=== PATIENT | male | born 1990 | race Caucasian/White ===

== ENCOUNTER 2016-04-25 13:57 | Emergency (ER) | payer MEDICAID ==
[~2016-04-25 13:57] MED LIST: ALBU17IN INH; ATOM40CA PO; HYDR-3719 PO; OXYC1TAB23 PO; PROZ10CA7 PO; PROZ20CA11 PO; REME15TA PO; STRA80CA PO; TRAZ100T4 PO; VIST50CA PO; no home meds
[2016-04-25] MEDS ORDERED: MORPHINE 4 MG/ML 1ML SYRINGE As Ordered ONE ×4 (15:40→18:48)
[2016-04-25] MEDS ORDERED: ONDANSETRON 4MG/2ML VIAL (J2405) As Ordered ONE (15:40)
[2016-04-25] MEDS ORDERED: GASTROGRAFIN SOLUTION 30ML (Q9963) As Ordered ONE (15:40)
[2016-04-25 16:08] LABS: BASO # 0.1 K/mm3 (0.0-0.2); BASO % 1.5 % (0.0-1.0); EOS # 0.2 K/mm3 (0.0-0.50); EOS % 1.8 % (0.0-3.0); LARGE UNSTAINED CELL # 0.2 K/mm3 (0.0-0.4); LARGE UNSTAINED CELL % 2.3 % (0.0-4.0); LYMPH # 2.9 K/mm3 (1.5-6.5); LYMPH % 32.7 % (24.0-44.0); MEAN CORPUSCULAR HEMOGLOBIN 28.9 pg (27.0-33.0); MEAN CORPUSCULAR HGB CONC 32.9 g/dl (32.0-36.5); MEAN CORPUSCULAR VOLUME 87.9 fl (80.0-96.0); MONO # 0.5 K/mm3 (0.0-0.8); MONO % 6.2 % (0.0-5.0); NEUTROPHILS # 4.6 K/mm3 (1.8-7.7); NEUTROPHILS % 55.6 % (36.0-66.0); PLATELET COUNT, AUTOMATED 204 k/mm3 (150-450); RED CELL DISTRIBUTION WIDTH 13.2 % (11.5-14.5); WHITE BLOOD COUNT 8.3 K/mm3 (4.0-10.0)
[2016-04-25 16:31] LABS: ALBUMIN 4.2 GM/DL (3.2-5.2); ALKALINE PHOSPHATASE 85 U/L (45-117); ALT/SGPT 36 U/L (12-78); ANION GAP 7 MEQ/L (8-16); AST/SGOT 19 U/L (15-37); BILIRUBIN,DIRECT < 0.1 MG/DL (0.0-0.2); BILIRUBIN,TOTAL 0.2 MG/DL (0.2-1.0); BLOOD UREA NITROGEN 14 MG/DL (7-18); CALCIUM LEVEL 9.3 MG/DL (8.5-10.1); CARBON DIOXIDE LEVEL 33 MEQ/L (21-32); CHLORIDE LEVEL 103 MEQ/L (98-107); CREATININE FOR GFR 1.12 MG/DL (0.70-1.30); GLOMERULAR FILTRATION RATE > 60.0 (>60); GLUCOSE, FASTING 101 MG/DL (70-105); POTASSIUM SERUM 4.3 MEQ/L (3.5-5.1); SODIUM LEVEL 143 MEQ/L (136-145); TOTAL PROTEIN 7.7 GM/DL (6.4-8.2)
[2016-04-25] MEDS ORDERED: PROMETHAZINE INJ 25 MG/ML VIAL (J2550) As Ordered ONE (16:44)
[2016-04-25] MEDS ORDERED: ISOVUE-370 76% 100ML VIAL (Q9967) As Ordered ONE (17:12)
--- NOTE | 2016-04-25 18:07 | REP ---
CT ABDOMEN AND PELVIS WITH CONTRAST: HISTORY: Upper abdominal pain. CONTRAST: Isovue 370, 75 mL. COMPARISON: 03/06/2016. The posterior body and tail of the pancreas are enlarged and irregular in contour, however, unchanged compared to the previous study. The liver, gallbladder, spleen, adrenal glands and kidneys are normal in appearance. There is no mass, adenopathy or free fluid. There is thickening of the wall of the descending and sigmoid colon. The lumen is decreased in caliber. These findings are unchanged compared to the previous study. The visualized lungs are clear. IMPRESSION: 1. There is enlargement and irregularity of the posterior body and tail of the pancreas. This is unchanged compared to the previous study. MR may be helpful for further evaluation to exclude a mass. 2. There is thickening of the wall of the descending and sigmoid colon. The lumen is decreased in caliber. These findings are unchanged compared to the previous study and are suspicious for inflammatory bowel disease. CT PELVIS: The prostate gland and urinary bladder are normal in appearance. There is thickening of the wall of the descending and sigmoid colon. The lumen is decrease in caliber. These findings are unchanged compared to the previous study. There is no mass, adenopathy or free fluid. A small left inguinal hernia is present. IMPRESSION: 1. There is thickening of the wall of the descending and sigmoid colon . The lumen is decreased in caliber. These findings are unchanged compared to the previous study and are suspicious for inflammatory bowel disease. 2. Small left inguinal hernia. Signed by Shahram Gomez MD 04/25/2016 06:10 P
[2016-04-25] MEDS ORDERED: NORCO 5/325MG TABLET (BULK) As Ordered ONE (19:38)
--- NOTE | 2016-04-25 20:00 | EDDOCDS ---
Nurse's Notes [facility] Name: Monty Alexander Age: 25 yrs Sex: Male : 1990 Arrival Date: 04/25/2016 Time: 13:57 Bed TR8 Private MD: NO PRIMARY PHYSICIAN, . Diagnosis: Upper abdominal pain, unspecified Presentation: 04/25 14:00 Presenting complaint: Patient states: LUQ pain for 4 days. Risk factors: the patient dwg reports not having a history of previous torsion. Adult Sepsis Screening: The patient does not have new or worsening altered mentation. Patient's respiratory rate is less than 22. Systolic blood pressure is greater than 100. Patient has a qSOFA score of 0- Negative Sepsis Screen. Suicide/Homicide risk assessment- the patient denies having any suicidal and/or homicidal ideations and does not present with any other emotional, behavioral or mental health complaints. Status: Patient is not a field services manager or dependent. Transition of care: patient was not received from another setting of care. 14:00 Acuity: SHANI Level 3 dwg 14:00 Method Of Arrival: Walkin/Carried/Asstd dwg Triage Assessment: 14:01 General: Appears in no apparent distress. Pain: Pain currently is 8 out of 10 on a pain dwg scale. HIV screening NA for this visit Offered previously. Historical: - Allergies: Amoxicillin (Rash); Azithromycin (Hives); Ketorolac (Upset stomach); Pediazole (Hives); Penicillins; - Home Meds: 1. none - PMHx: Anxiety; Depression; Ulcerative Colitis; - PSHx: Appendectomy; - Social history: Smoking status: Patient uses tobacco products, current every day smoker. No barriers to communication noted, The patient speaks fluent Moldovan. - Family history: Not pertinent. - : The pt / caregiver states he / she is not on anticoagulants. Home medication list is obtained from the patient. - Exposure Risk Screening:: None identified. Screenin:23 Screening information is obtained from the patient. Primary language is Moldovan. Fall jam1 risk: No risks identified. Assistance ADL's: requires no assistance with activities of daily living. Abuse/DV Screen: The patient / caregiver reports he/she is: not in a situation that causes fear, pain or injury. Nutritional screening: No deficits noted. Exposure Risk Screening: None identified. Advance Directives: Currently, there is no health care proxy. There is no active DNR order. There is no living will. There is no Power of Organic Gardening Teacher. Advance directive information has not previously been placed in an [facility] medical record. Further advance directive information is declined. home support is adequate. Assessment: 15:30 General: Appears in no apparent distress, comfortable, Behavior is appropriate for age, kc3 cooperative. Pain: Location: abdomen Pain currently is 8 out of 10 on a pain scale. Neurological: Level of Consciousness is awake, alert, obeys commands, Oriented to person, place, time. Respiratory: Respiratory effort is even, unlabored, Respiratory pattern is regular, symmetrical. GI: Abdomen is flat, Bowel sounds present X 4 quads. Abd is soft Abd is tender to palpation Reports nausea. Derm: Skin is pink, warm & dry. Musculoskeletal: Circulation, motion, and sensation intact. 17:00 General: Appears in no apparent distress, comfortable, Behavior is appropriate for age, kc3 cooperative. Pain: Location: abdomen. Neurological: Level of Consciousness is awake, alert, obeys commands, Oriented to person, place, time. Respiratory: Respiratory effort is even, unlabored. GI: Reports nausea. Derm: Skin is pink, warm & dry. 18:00 General: Appears in no apparent distress, comfortable, Behavior is appropriate for age, kc3 cooperative. Pain: Location: abdomen. Neurological: Level of Consciousness is awake, alert, obeys commands, Oriented to person, place, time. Respiratory: Respiratory effort is even, unlabored. Derm: Skin is pink, warm & dry. 19:15 General: Pt resting on stretcher watching tv. No distress noted. Respirations even and kc3 unlabored. Will continue to monitor. . 19:52 General: Appears in no apparent distress, comfortable, Behavior is appropriate for age, kc3 cooperative. Pain: Location: abdomen. Neurological: Level of Consciousness is awake, alert, obeys commands, Oriented to person, place, time. Respiratory: Respiratory effort is even, unlabored. Derm: Skin is pink, warm & dry. Vital Signs: 13:58 BP 117 / 67; Pulse 107; Resp 16; Temp 97.3(O); Pulse Ox 99% ; Weight 79.38 kg; Height 5 cmb ft. 11 in. (180.34 cm); Pain 8/10; 16:30 BP 124 / 58; Pulse 73; Resp 18; Temp 96.0; Pulse Ox 98% ; Pain 8/10; jam1 16:42 BP 134 / 87; Pulse 80; Pain 7/10; kc3 19:55 BP 159 / 70; Pulse 61; Resp 18; Temp 96.7(O); Pulse Ox 96% on R/A; kc3 13:58 Body Mass Index 24.41 (79.38 kg, 180.34 cm) cmb Vitals: 13:58 Log In Time: April 25, 2016 at 13:57. cmb ED Course: 13:57 Patient visited by Amanda Barahona. cmb 13:57 Patient moved to Waiting cmb 13:58 NO PRIMARY PHYSICIAN, . is Private Physician. cmb 13:59 Patient moved to Pre RCE cmb 14:01 Triage Initiated dwg 14:58 Christofer Quintana,RN is Primary Nurse. mb9 14:59 Constance Coreas FNP is PHCP. le 14:59 Patient moved to I1 / M1 le 15:18 Patient visited by Constance Coreas FNP. le 15:18 Patient visited by Constance Coreas FNP. le 15:23 Pt greeted and oriented to ED. Patient advised of names of staff involved in care, [facility] location of call escobar, wait times and NPO status. Patient has correct armband on for positive identification. Placed in gown. Bed in low position. Call light in reach. Side rails up X 1. Door closed. 16:00 Patient visited by Glenny Neely RN. kc3 16:00 Basic Metabolic Profile Sent. 3 16:00 CBC with Diff Sent. kc3 16:00 Lipase Sent. kc3 16:00 Liver Profile Sent. kc3 16:00 Inserted saline lock: 20 gauge in right antecubital area and blood collected. The kc3 patient tolerated the procedure well. 16:36 Patient visited by Glenny Neely RN. kc3 17:[address] dsf 17:22 Patient visited by Glenny Neely RN. kc3 17:22 Patient moved to I1 / M1 kc3 18:12 Patient visited by Glenny Neely RN. kc3 18:18 [facility] Payment Agreement was scanned into [employer] and attached to record. ks16 18:22 CT ABD & PELVIS: IV and Oral Contrast Returned. EDMS 19:19 Patient visited by Glenny Neely RN. kc3 19:31 [facility] is Referral Physician. le 19:31 [facility] is Referral Physician. le 19:54 The patient / caregiver is instructed regarding the plan of care and ED course. kc3 19:54 Discontinued IV lock intact, bleeding controlled, pressure dressing applied, No kc3 redness/swelling at site. No procedures done that require assistance. 19:56 Patient moved to [address] Administered Medications: 15:40 Drug: Diatrizoate Meglumine & Sodium 10 ml [diatrizoate meglumine and diat.sodium 66 kc3 %-10 % oral solution (10 mL)] Route: PO; 16:00 Drug: NS 0.9% 1000 ml [sodium chloride 0.9 % intravenous solution] Route: IV; Rate: kc3 bolus; Site: right antecubital; 18:12 Follow up: IV Status: Completed infusion kc3 16:00 Drug: Ondansetron 4 mg [ondansetron HCl 2 mg/mL intravenous solution (2 mL)] Route: kc3 IVP; Site: right antecubital; 18:11 Follow up: Response: Nausea is unchanged kc3 16:01 Drug: morphine 4 mg [morphine 4 mg/mL intravenous cartridge (1 mL)] Route: IVP; Site: kc3 right antecubital; 16:10 Drug: Diatrizoate Meglumine & Sodium 10 ml [diatrizoate meglumine and diat.sodium 66 kc3 %-10 % oral solution (10 mL)] Route: PO; 16:42 Drug: morphine 4 mg [morphine 4 mg/mL intravenous cartridge (1 mL)] Route: IVP; Site: kc3 right antecubital; 16:42 Follow up: BP 134 / 87; Pulse 80 bpm; Pain 7/10 Adult kc3 18:12 Follow up: Response: Pain is unchanged, physician notified kc3 16:54 Drug: Promethazine 25 mg [promethazine 25 mg/mL injection solution (1 mL)] Route: IVP; kc3 Site: right antecubital; 17:54 Follow up: Response: No Adverse Reaction kc3 18:11 Drug: NS 0.9% 1000 ml [sodium chloride 0.9 % intravenous solution] Route: IV; Rate: 100 kc3 mL/hr; Site: right antecubital; 18:15 Drug: morphine 4 mg [morphine 4 mg/mL intravenous cartridge (1 mL)] {Note: 96.6 (o) - kc3 70 - 20 - 106/63 - 95%.} Route: IVP; Site: right antecubital; 18:54 Drug: morphine 4 mg [morphine 4 mg/mL intravenous cartridge (1 mL)] {Note: Pain = 6/10 srm from 10/16. VS = 111/51 - 62 - 20 - 95%..} Route: IVP; Site: right antecubital; 19:49 Drug: HYDROcodone-acetaminophen 4 pack- 1 packets [hydrocodone 5 mg-acetaminophen 325 kc3 mg tablet (1 tabs)] {Co-Signature: mgs (Jorge Flores RN).} Route: PO; Order Results: Lab Order: Basic Metabolic Profile; SPEC'M 04/25/16 15:48 Test: GLUCOSE, FASTING; Value: 101; Range: 70-105; Units: MG/DL; Status: F Test: BLOOD UREA NITROGEN; Value: 14; Range: 7-18; Units: MG/DL; Status: F Test: CREATININE FOR GFR; Value: 1.12; Range: 0.70-1.30; Units: MG/DL; Status: F Test: GLOMERULAR FILTRATION RATE; Value: > 60.0; Range: >60; Status: F Test: SODIUM LEVEL; Value: 143; Range: 136-145; Units: MEQ/L; Status: F Test: POTASSIUM SERUM; Value: 4.3; Range: 3.5-5.1; Units: MEQ/L; Status: F Test: CHLORIDE LEVEL; Value: 103; Range: 98-107; Units: MEQ/L; Status: F Test: CARBON DIOXIDE LEVEL; Value: 33; Range: 21-32; Abnormal: Above high normal; Units: MEQ/L; Status: F Test: ANION GAP; Value: 7; Range: 8-16; Abnormal: Below low normal; Units: MEQ/L; Status: F Test: CALCIUM LEVEL; Value: 9.3; Range: 8.5-10.1; Units: MG/DL; Status: F Test Note: ; Units are mL/min/1.73 m2 Chronic Kidney Disease Staging per NKF: Stage I & II GFR >=60 Normal to Mildly Decreased Stage III GFR 30-59 Moderately Decreased Stage IV GFR 15-29 Severely Decreased Stage V GFR <15 Very Little GFR Left ESRD GFR <15 on COMMERCIAL MAINTENANCE TECHNICIAN Lab Order: CBC with Diff; ROLAND'Yee 04/25/16 15:48 Test: WHITE BLOOD COUNT; Value: 8.3; Range: 4.0-10.0; Units: K/mm3; Status: F Test: RED BLOOD COUNT; Value: 5.48; Range: 4.30-6.10; Units: M/mm3; Status: F Test: HEMOGLOBIN; Value: 15.8; Range: 14.0-18.0; Units: g/dl; Status: F Test: HEMATOCRIT; Value: 48.1; Range: 42.0-52.0; Units: %; Status: F Test: MEAN CORPUSCULAR VOLUME; Value: 87.9; Range: 80.0-96.0; Units: fl; Status: F Test: MEAN CORPUSCULAR HEMOGLOBIN; Value: 28.9; Range: 27.0-33.0; Units: pg; Status: F Test: MEAN CORPUSCULAR HGB CONC; Value: 32.9; Range: 32.0-36.5; Units: g/dl; Status: F Test: RED CELL DISTRIBUTION WIDTH; Value: 13.2; Range: 11.5-14.5; Units: %; Status: F Test: PLATELET COUNT, AUTOMATED; Value: 204; Range: 150-450; Units: k/mm3; Status: F Test: NEUTROPHILS %; Value: 55.6; Range: 36.0-66.0; Units: %; Status: F Test: LYMPH %; Value: 32.7; Range: 24.0-44.0; Units: %; Status: F Test: MONO %; Value: 6.2; Range: 0.0-5.0; Abnormal: Above high normal; Units: %; Status: F Test: EOS %; Value: 1.8; Range: 0.0-3.0; Units: %; Status: F Test: BASO %; Value: 1.5; Range: 0.0-1.0; Abnormal: Above high normal; Units: %; Status: F Test: LARGE UNSTAINED CELL %; Value: 2.3; Range: 0.0-4.0; Units: %; Status: F Test: NEUTROPHILS #; Value: 4.6; Range: 1.8-7.7; Units: K/mm3; Status: F Test: LYMPH #; Value: 2.9; Range: 1.5-6.5; Units: K/mm3; Status: F Test: MONO #; Value: 0.5; Range: 0.0-0.8; Units: K/mm3; Status: F Test: EOS #; Value: 0.2; Range: 0.0-0.50; Units: K/mm3; Status: F Test: BASO #; Value: 0.1; Range: 0.0-0.2; Units: K/mm3; Status: F Test: LARGE UNSTAINED CELL #; Value: 0.2; Range: 0.0-0.4; Units: K/mm3; Status: F Lab Order: Lipase; SPEC'M 04/25/16 15:48 Test: LIPASE; Value: 180; Range: 73-393; Units: U/L; Status: F Lab Order: Liver Profile; SPEC'M 04/25/16 15:48 Test: AST/SGOT; Value: 19; Range: 15-37; Units: U/L; Status: F Test: ALT/SGPT; Value: 36; Range: 12-78; Units: U/L; Status: F Test: ALKALINE PHOSPHATASE; Value: 85; Range: 45-117; Units: U/L; Status: F Test: BILIRUBIN,TOTAL; Value: 0.2; Range: 0.2-1.0; Units: MG/DL; Status: F Test: BILIRUBIN,DIRECT; Value: < 0.1; Range: 0.0-0.2; Units: MG/DL; Status: F Test: TOTAL PROTEIN; Value: 7.7; Range: 6.4-8.2; Units: GM/DL; Status: F Test: ALBUMIN; Value: 4.2; Range: 3.2-5.2; Units: GM/DL; Status: F Test: ALBUMIN/GLOBULIN RATIO; Value: 1.20; Range: 1.00-1.93; Status: F Radiology Order: CT ABD & PELVIS: IV and Oral Contrast Test: CT ABD & PELVIS: IV and Oral Contrast REASON FOR EXAMINATION: upper abd pain, hx of pancreas "prob"; CT ABDOMEN AND PELVIS WITH CONTRAST:; ; HISTORY: Upper abdominal pain.; ; CONTRAST: Isovue 370, 75 mL.; ; COMPARISON: 03/06/2016.; ; The posterior body and tail of the pancreas are enlarged and irregular in; contour, however, unchanged compared to the previous study. The liver,; gallbladder, spleen, adrenal glands and kidneys are normal in appearance. There; is no mass, adenopathy or free fluid. There is thickening of the wall of the; descending and sigmoid colon. The lumen is decreased in caliber. These findings; are unchanged compared to the previous study. The visualized lungs are clear.; ; IMPRESSION:; ; 1. There is enlargement and irregularity of the posterior body and tail of the; pancreas. This is unchanged compared to the previous study. MR may be helpful for; further evaluation to exclude a mass.; ; 2. There is thickening of the wall of the descending and sigmoid colon. The lumen; is decreased in caliber. These findings are unchanged compared to the previous; study and are suspicious for inflammatory bowel disease.; ; CT PELVIS:; ; The prostate gland and urinary bladder are normal in appearance. There is; thickening of the wall of the descending and sigmoid colon. The lumen is decrease; in caliber. These findings are unchanged compared to the previous study. There is; no mass, adenopathy or free fluid. A small left inguinal hernia is present.; ; IMPRESSION:; ; 1. There is thickening of the wall of the descending and sigmoid colon . The; lumen is decreased in caliber. These findings are unchanged compared to the; previous study and are suspicious for inflammatory bowel disease.; ; 2. Small left inguinal hernia.; ; ; Signed by; Shahram Gomez MD 04/25/2016 06:10 P; Outcome: 19:31 Discharge ordered by Provider. le 19:54 Discharge Assessment: Patient awake, alert and oriented x 3. No cognitive and/or kc3 functional deficits noted. Patient verbalized understanding of disposition instructions. patient administered narcotics - yes. Pt provided with safe discharge. The following High Risk Discharge criteria are identified: None. Condition: stable. Discharge instructions given to patient, Instructed on discharge instructions, follow up and referral plans. medication usage, Demonstrated understanding of instructions, medications, Pt was receptive of discharge instructions/ teaching. Prescriptions given X 1. CT Study completed. Property :Personal belongings accompany Pt. 19:59 Patient left the ED. kc3 Signatures: Dispatcher [employer] EDKaz Camejo, RN RN Jackie Hankins RN RN Daniela Harper, DESIREE MOTORCYCLE ENGINE ASSEMBLER jam1 Constance Coreas, SUPERVISOR EDUCATION Kaila JamesonRN RN dsOrly Amezquita Chelsea cmChristofer DownsRN RN mb9 Glenny Neely RN RN kc3 Guillermina Bailon, Reg Reg ks16 Jorge Flores RN mgs Corrections: (The following items were deleted from the chart) 16:42 16:36 BP 134 / 87; Pulse 80 bpm kc3 kc3 MTDD
--- NOTE | 2016-04-25 20:00 | EDDOCDS ---
Physician Documentation [facility] Name: Monty Alexander Age: 25 yrs Sex: Male : 1990 Arrival Date: 04/25/2016 Time: 13:57 Bed TR8 Private MD: NO PRIMARY PHYSICIAN, . Disposition: 04/25 19:35 Critical Care: Critical care not applicable. le Disposition: 04/25/16 19:31 Discharged to Home/Self Care. Impression: Upper abdominal pain, unspecified. - Condition is Stable. - Discharge Instructions: Abdominal Pain, Adult, Pain Without a Known Cause. - Prescriptions for Nenzel 5- 325 mg Oral Tablet - take 1 tablet by ORAL route every 6 hours As needed MDD: 4 tabs; 6 tablet. - Medication Reconciliation, Local Pharmacy Hours form. - Follow up: [facility]; When: Call to arrange an appointment; Reason: Recheck today's complaints, Continuance of care. [facility]: [facility]; When: Call to arrange an appointment; Reason: To establish care. - Problem is an acute exacerbation. - Symptoms have improved. - Notes: Your CT scan shows that your pancreas is enlarged, concerning for a mass. This needs further evaluation with MRI, which can be done on a non-emergent basis. I have provided a order/requisition for this examination. Call MRI tomorrow to schedule Return to the ED for any further concerns Historical: - Allergies: Amoxicillin (Rash); Azithromycin (Hives); Ketorolac (Upset stomach); Pediazole (Hives); Penicillins; - Home Meds: 1. none - PMHx: Anxiety; Depression; Ulcerative Colitis; - PSHx: Appendectomy; - Social history: Smoking status: Patient uses tobacco products, current every day smoker. No barriers to communication noted, The patient speaks fluent Burundian. - Family history: Not pertinent. - : The pt / caregiver states he / she is not on anticoagulants. Home medication list is obtained from the patient. - Exposure Risk Screening:: None identified. Vital Signs: 13:58 BP 117 / 67; Pulse 107; Resp 16; Temp 97.3(O); Pulse Ox 99% ; Weight 79.38 kg / 175 cmb lbs; Height 5 ft. 11 in. (180.34 cm); Pain 8/10; 16:30 BP 124 / 58; Pulse 73; Resp 18; Temp 96.0; Pulse Ox 98% ; Pain 8/10; jam1 16:42 BP 134 / 87; Pulse 80; Pain 7/10; kc3 19:55 BP 159 / 70; Pulse 61; Resp 18; Temp 96.7(O); Pulse Ox 96% on R/A; kc3 13:58 Body Mass Index 24.41 (79.38 kg, 180.34 cm) cmb MDM: 15:24 NS 0.9% 1000 ml IV at bolus once ordered. le 15:24 NS 0.9% 1000 ml IV at 100 mL/hr continuous ordered. le 15:24 Ondansetron 4 mg IVP once ordered. le 15:24 morphine 4 mg IVP every 30 minutes; Document pain score/vitals after each dose (Hold if le SBP < 90mmHg) x2 ordered. 15:24 IV Saline Lock ordered. le 15:24 Undress patient appropriately for examination ordered. le 15:25 Basic Metabolic Profile Ordered. EDMS 15:25 CBC with Diff Ordered. EDMS 15:25 Lipase Ordered. EDMS 15:25 Liver Profile Ordered. EDMS 15:26 CT ABD & PELVIS: IV and Oral Contrast Ordered. EDMS 15:26 NOTHING BY MOUTH+DIET ordered. EDMS 16:03 Diatrizoate Meglumine & Sodium Liquid 10 ml PO once; mix in 290cc of water - admin at kc3 1610 ordered. 16:03 Diatrizoate Meglumine & Sodium Liquid 10 ml PO once; mix in 290cc of water - admin at kc3 1610 ordered. 16:41 Promethazine 25 mg IVP once; dilute and administer 30-60 minutes ordered. le 16:58 Basic Metabolic Profile Reviewed. le 16:58 CBC with Diff Reviewed. le 16:58 Lipase Reviewed. le 16:58 Liver Profile Reviewed. le 17:59 Misc Geospatial Imagery Intelligence Analyst Order ordered. le 17:59 morphine 4 mg IVP every 15 minutes; Document pain score/vitals after each dose (Hold if le SBP < 90mmHg) x2 ordered. 18:17 Financial registration complete. ks16 18:18 [facility] Payment Agreement was scanned into [employer] and attached to record. ks16 18:51 Misc Geospatial Imagery Intelligence Analyst Order complete. ajs 19:32 HYDROcodone-acetaminophen 4 pack- 5 mg-325 mg 1 packets PO Per package directions; le Dispense with patient. 1 po q4h prn for pain ordered. Administered Medications: 15:40 Drug: Diatrizoate Meglumine & Sodium 10 ml [diatrizoate meglumine and diat.sodium 66 kc3 %-10 % oral solution (10 mL)] Route: PO; 16:00 Drug: NS 0.9% 1000 ml [sodium chloride 0.9 % intravenous solution] Route: IV; Rate: kc3 bolus; Site: right antecubital; 18:12 Follow up: IV Status: Completed infusion kc3 16:00 Drug: Ondansetron 4 mg [ondansetron HCl 2 mg/mL intravenous solution (2 mL)] Route: kc3 IVP; Site: right antecubital; 18:11 Follow up: Response: Nausea is unchanged kc3 16:01 Drug: morphine 4 mg [morphine 4 mg/mL intravenous cartridge (1 mL)] Route: IVP; Site: kc3 right antecubital; 16:10 Drug: Diatrizoate Meglumine & Sodium 10 ml [diatrizoate meglumine and diat.sodium 66 kc3 %-10 % oral solution (10 mL)] Route: PO; 16:42 Drug: morphine 4 mg [morphine 4 mg/mL intravenous cartridge (1 mL)] Route: IVP; Site: kc3 right antecubital; 16:42 Follow up: BP 134 / 87; Pulse 80 bpm; Pain 7/10 Adult kc3 18:12 Follow up: Response: Pain is unchanged, physician notified kc3 16:54 Drug: Promethazine 25 mg [promethazine 25 mg/mL injection solution (1 mL)] Route: IVP; kc3 Site: right antecubital; 17:54 Follow up: Response: No Adverse Reaction kc3 18:11 Drug: NS 0.9% 1000 ml [sodium chloride 0.9 % intravenous solution] Route: IV; Rate: 100 kc3 mL/hr; Site: right antecubital; 18:15 Drug: morphine 4 mg [morphine 4 mg/mL intravenous cartridge (1 mL)] {Note: 96.6 (o) - kc3 70 - 20 - 106/63 - 95%.} Route: IVP; Site: right antecubital; 18:54 Drug: morphine 4 mg [morphine 4 mg/mL intravenous cartridge (1 mL)] {Note: Pain = 6/10 srm from 10/16. VS = 111/51 - 62 - 20 - 95%..} Route: IVP; Site: right antecubital; 19:49 Drug: HYDROcodone-acetaminophen 4 pack- 1 packets [hydrocodone 5 mg-acetaminophen 325 kc3 mg tablet (1 tabs)] {Co-Signature: mgs (Jorge Flores RN).} Route: PO; Signatures: Dispatcher [employer] EDMS Kaz Garcia, RN RN [facility] Constance Coreas, PERL DEVELOPER Orly Emanuel Kelsi, RN RN kc3 Guillermina Bailon, Reg Reg ks16 Jackie Sepulveda RN [facility] Jorge Flores RN mgs The chart was reviewed and I authenticate all verbal orders and agree with the evaluation and treatment provided.Corrections: (The following items were deleted from the chart) 19:03 18:59 MRI ABDOMEN WITHOUT CONTRAST ordered. EDMS EDMS 19:27 19:03 MRI ABD W/O FOL WITH ordered. EDMS EDMS Attachments: 18:18 [facility] Payment Agreement ks16 MTDD
--- NOTE | 2016-04-27 21:00 | EDDOCDS ---
Physician Documentation [facility] Name: Monty Alexander Age: 25 yrs Sex: Male : 1990 Arrival Date: 04/25/2016 Time: 13:57 Bed TR8 Private MD: NO PRIMARY PHYSICIAN, . Disposition: 04/25 19:35 Critical Care: Critical care not applicable. le Disposition: 04/25/16 19:31 Discharged to Home/Self Care. Impression: Upper abdominal pain, unspecified. - Condition is Stable. - Discharge Instructions: Abdominal Pain, Adult, Pain Without a Known Cause. - Prescriptions for [place] 5- 325 mg Oral Tablet - take 1 tablet by ORAL route every 6 hours As needed MDD: 4 tabs; 6 tablet. - Medication Reconciliation, Local Pharmacy Hours form. - Follow up: [facility]; When: Call to arrange an appointment; Reason: Recheck today's complaints, Continuance of care. [facility]; When: Call to arrange an appointment; Reason: To establish care. - Problem is an acute exacerbation. - Symptoms have improved. - Notes: Your CT scan shows that your pancreas is enlarged, concerning for a mass. This needs further evaluation with MRI, which can be done on a non-emergent basis. I have provided a order/requisition for this examination. Call MRI tomorrow to schedule Return to the ED for any further concerns Historical: - Allergies: Amoxicillin (Rash); Azithromycin (Hives); Ketorolac (Upset stomach); Pediazole (Hives); Penicillins; - Home Meds: 1. none - PMHx: Anxiety; Depression; Ulcerative Colitis; - PSHx: Appendectomy; - Social history: Smoking status: Patient uses tobacco products, current every day smoker. No barriers to communication noted, The patient speaks fluent Dutch. - Family history: Not pertinent. - : The pt / caregiver states he / she is not on anticoagulants. Home medication list is obtained from the patient. - Exposure Risk Screening:: None identified. Vital Signs: 13:58 BP 117 / 67; Pulse 107; Resp 16; Temp 97.3(O); Pulse Ox 99% ; Weight 79.38 kg / 175 cmb lbs; Height 5 ft. 11 in. (180.34 cm); Pain 8/10; 16:30 BP 124 / 58; Pulse 73; Resp 18; Temp 96.0; Pulse Ox 98% ; Pain 8/10; jam1 16:42 BP 134 / 87; Pulse 80; Pain 7/10; kc3 19:55 BP 159 / 70; Pulse 61; Resp 18; Temp 96.7(O); Pulse Ox 96% on R/A; kc3 13:58 Body Mass Index 24.41 (79.38 kg, 180.34 cm) cmb MDM: 15:24 NS 0.9% 1000 ml IV at bolus once ordered. le 15:24 NS 0.9% 1000 ml IV at 100 mL/hr continuous ordered. le 15:24 Ondansetron 4 mg IVP once ordered. le 15:24 morphine 4 mg IVP every 30 minutes; Document pain score/vitals after each dose (Hold if le SBP < 90mmHg) x2 ordered. 15:24 IV Saline Lock ordered. le 15:24 Undress patient appropriately for examination ordered. le 15:25 Basic Metabolic Profile Ordered. EDMS 15:25 CBC with Diff Ordered. EDMS 15:25 Lipase Ordered. EDMS 15:25 Liver Profile Ordered. EDMS 15:26 CT ABD & PELVIS: IV and Oral Contrast Ordered. EDMS 15:26 NOTHING BY MOUTH+DIET ordered. EDMS 16:03 Diatrizoate Meglumine & Sodium Liquid 10 ml PO once; mix in 290cc of water - admin at kc3 1610 ordered. 16:03 Diatrizoate Meglumine & Sodium Liquid 10 ml PO once; mix in 290cc of water - admin at kc3 1610 ordered. 16:41 Promethazine 25 mg IVP once; dilute and administer 30-60 minutes ordered. le 16:58 Basic Metabolic Profile Reviewed. le 16:58 CBC with Diff Reviewed. le 16:58 Lipase Reviewed. le 16:58 Liver Profile Reviewed. le 17:59 Misc Sterile Supervisor Order ordered. le 17:59 morphine 4 mg IVP every 15 minutes; Document pain score/vitals after each dose (Hold if le SBP < 90mmHg) x2 ordered. 18:17 Financial registration complete. [email or web address] 18:18 [facility] Payment Agreement was scanned into [employer] and attached to record. [email or web address] 18:51 Misc Sterile Supervisor Order complete. ajs 19:32 HYDROcodone-acetaminophen 4 pack- 5 mg-325 mg 1 packets PO Per package directions; le Dispense with patient. 1 po q4h prn for pain ordered. 04/26 10:19 T-Sheet-- Draft Copy was scanned into [employer] and attached to record. gb Administered Medications: 04/25 15:40 Drug: Diatrizoate Meglumine & Sodium 10 ml [diatrizoate meglumine and diat.sodium 66 kc3 %-10 % oral solution (10 mL)] Route: PO; 16:00 Drug: NS 0.9% 1000 ml [sodium chloride 0.9 % intravenous solution] Route: IV; Rate: kc3 bolus; Site: right antecubital; 18:12 Follow up: IV Status: Completed infusion kc3 16:00 Drug: Ondansetron 4 mg [ondansetron HCl 2 mg/mL intravenous solution (2 mL)] Route: kc3 IVP; Site: right antecubital; 18:11 Follow up: Response: Nausea is unchanged kc3 16:01 Drug: morphine 4 mg [morphine 4 mg/mL intravenous cartridge (1 mL)] Route: IVP; Site: kc3 right antecubital; 16:10 Drug: Diatrizoate Meglumine & Sodium 10 ml [diatrizoate meglumine and diat.sodium 66 kc3 %-10 % oral solution (10 mL)] Route: PO; 16:42 Drug: morphine 4 mg [morphine 4 mg/mL intravenous cartridge (1 mL)] Route: IVP; Site: kc3 right antecubital; 16:42 Follow up: BP 134 / 87; Pulse 80 bpm; Pain 7/10 Adult kc3 18:12 Follow up: Response: Pain is unchanged, physician notified kc3 16:54 Drug: Promethazine 25 mg [promethazine 25 mg/mL injection solution (1 mL)] Route: IVP; kc3 Site: right antecubital; 17:54 Follow up: Response: No Adverse Reaction kc3 18:11 Drug: NS 0.9% 1000 ml [sodium chloride 0.9 % intravenous solution] Route: IV; Rate: 100 kc3 mL/hr; Site: right antecubital; 18:15 Drug: morphine 4 mg [morphine 4 mg/mL intravenous cartridge (1 mL)] {Note: 96.6 (o) - kc3 70 - 20 - 106/63 - 95%.} Route: IVP; Site: right antecubital; 18:54 Drug: morphine 4 mg [morphine 4 mg/mL intravenous cartridge (1 mL)] {Note: Pain = 6/10 srm from 10/16. VS = 111/51 - 62 - 20 - 95%..} Route: IVP; Site: right antecubital; 19:49 Drug: HYDROcodone-acetaminophen 4 pack- 1 packets [hydrocodone 5 mg-acetaminophen 325 kc3 mg tablet (1 tabs)] {Co-Signature: mgs (Jorge Flores RN).} Route: PO; Signatures: Dispatcher [employer] EDMS Kaz Garcia RN RN dwg Shirley Alanis, Reg Reg gb Constance Coreas, ALLIED HEALTH PROFESSIONAL Orly Emanuel Kelsi, RN RN kc3 Guillermina Bailon, Reg Reg ks16 Jackie Sepulveda RN srm Jorge Flores RN mgs The chart was reviewed and I authenticate all verbal orders and agree with the evaluation and treatment provided.Corrections: (The following items were deleted from the chart) 19:03 18:59 MRI ABDOMEN WITHOUT CONTRAST ordered. EDMS EDMS 19:27 19:03 MRI ABD W/O FOL WITH ordered. EDMS EDMS Attachments: 18:18 [facility] Payment Agreement [email or web address] 04/26 10:19 T-Sheet-- Draft Copy gb Chart Complete MTDD
--- NOTE | 2016-04-27 21:00 | EDDOCDS ---
Physician Documentation [facility] Name: Monty Alexander Age: 25 yrs Sex: Male : 1990 Arrival Date: 04/25/2016 Time: 13:57 Bed TR8 Private MD: NO PRIMARY PHYSICIAN, . Disposition: 04/25 19:35 Critical Care: Critical care not applicable. le Disposition: 04/25/16 19:31 Discharged to Home/Self Care. Impression: Upper abdominal pain, unspecified. - Condition is Stable. - Discharge Instructions: Abdominal Pain, Adult, Pain Without a Known Cause. - Prescriptions for [place] 5- 325 mg Oral Tablet - take 1 tablet by ORAL route every 6 hours As needed MDD: 4 tabs; 6 tablet. - Medication Reconciliation, Local Pharmacy Hours form. - Follow up: [facility]; When: Call to arrange an appointment; Reason: Recheck today's complaints, Continuance of care. [facility]; When: Call to arrange an appointment; Reason: To establish care. - Problem is an acute exacerbation. - Symptoms have improved. - Notes: Your CT scan shows that your pancreas is enlarged, concerning for a mass. This needs further evaluation with MRI, which can be done on a non-emergent basis. I have provided a order/requisition for this examination. Call MRI tomorrow to schedule Return to the ED for any further concerns Historical: - Allergies: Amoxicillin (Rash); Azithromycin (Hives); Ketorolac (Upset stomach); Pediazole (Hives); Penicillins; - Home Meds: 1. none - PMHx: Anxiety; Depression; Ulcerative Colitis; - PSHx: Appendectomy; - Social history: Smoking status: Patient uses tobacco products, current every day smoker. No barriers to communication noted, The patient speaks fluent Montenegrin. - Family history: Not pertinent. - : The pt / caregiver states he / she is not on anticoagulants. Home medication list is obtained from the patient. - Exposure Risk Screening:: None identified. Vital Signs: 13:58 BP 117 / 67; Pulse 107; Resp 16; Temp 97.3(O); Pulse Ox 99% ; Weight 79.38 kg / 175 cmb lbs; Height 5 ft. 11 in. (180.34 cm); Pain 8/10; 16:30 BP 124 / 58; Pulse 73; Resp 18; Temp 96.0; Pulse Ox 98% ; Pain 8/10; jam1 16:42 BP 134 / 87; Pulse 80; Pain 7/10; kc3 19:55 BP 159 / 70; Pulse 61; Resp 18; Temp 96.7(O); Pulse Ox 96% on R/A; kc3 13:58 Body Mass Index 24.41 (79.38 kg, 180.34 cm) cmb MDM: 15:24 NS 0.9% 1000 ml IV at bolus once ordered. le 15:24 NS 0.9% 1000 ml IV at 100 mL/hr continuous ordered. le 15:24 Ondansetron 4 mg IVP once ordered. le 15:24 morphine 4 mg IVP every 30 minutes; Document pain score/vitals after each dose (Hold if le SBP < 90mmHg) x2 ordered. 15:24 IV Saline Lock ordered. le 15:24 Undress patient appropriately for examination ordered. le 15:25 Basic Metabolic Profile Ordered. EDMS 15:25 CBC with Diff Ordered. EDMS 15:25 Lipase Ordered. EDMS 15:25 Liver Profile Ordered. EDMS 15:26 CT ABD & PELVIS: IV and Oral Contrast Ordered. EDMS 15:26 NOTHING BY MOUTH+DIET ordered. EDMS 16:03 Diatrizoate Meglumine & Sodium Liquid 10 ml PO once; mix in 290cc of water - admin at kc3 1610 ordered. 16:03 Diatrizoate Meglumine & Sodium Liquid 10 ml PO once; mix in 290cc of water - admin at kc3 1610 ordered. 16:41 Promethazine 25 mg IVP once; dilute and administer 30-60 minutes ordered. le 16:58 Basic Metabolic Profile Reviewed. le 16:58 CBC with Diff Reviewed. le 16:58 Lipase Reviewed. le 16:58 Liver Profile Reviewed. le 17:59 Misc Licensed Insurance Agent Order ordered. le 17:59 morphine 4 mg IVP every 15 minutes; Document pain score/vitals after each dose (Hold if le SBP < 90mmHg) x2 ordered. 18:17 Financial registration complete. [email or web address] 18:18 [facility] Payment Agreement was scanned into [employer] and attached to record. [email or web address] 18:51 Misc Licensed Insurance Agent Order complete. ajs 19:32 HYDROcodone-acetaminophen 4 pack- 5 mg-325 mg 1 packets PO Per package directions; le Dispense with patient. 1 po q4h prn for pain ordered. 04/26 10:19 T-Sheet-- Draft Copy was scanned into [employer] and attached to record. gb Administered Medications: 04/25 15:40 Drug: Diatrizoate Meglumine & Sodium 10 ml [diatrizoate meglumine and diat.sodium 66 kc3 %-10 % oral solution (10 mL)] Route: PO; 16:00 Drug: NS 0.9% 1000 ml [sodium chloride 0.9 % intravenous solution] Route: IV; Rate: kc3 bolus; Site: right antecubital; 18:12 Follow up: IV Status: Completed infusion kc3 16:00 Drug: Ondansetron 4 mg [ondansetron HCl 2 mg/mL intravenous solution (2 mL)] Route: kc3 IVP; Site: right antecubital; 18:11 Follow up: Response: Nausea is unchanged kc3 16:01 Drug: morphine 4 mg [morphine 4 mg/mL intravenous cartridge (1 mL)] Route: IVP; Site: kc3 right antecubital; 16:10 Drug: Diatrizoate Meglumine & Sodium 10 ml [diatrizoate meglumine and diat.sodium 66 kc3 %-10 % oral solution (10 mL)] Route: PO; 16:42 Drug: morphine 4 mg [morphine 4 mg/mL intravenous cartridge (1 mL)] Route: IVP; Site: kc3 right antecubital; 16:42 Follow up: BP 134 / 87; Pulse 80 bpm; Pain 7/10 Adult kc3 18:12 Follow up: Response: Pain is unchanged, physician notified kc3 16:54 Drug: Promethazine 25 mg [promethazine 25 mg/mL injection solution (1 mL)] Route: IVP; kc3 Site: right antecubital; 17:54 Follow up: Response: No Adverse Reaction kc3 18:11 Drug: NS 0.9% 1000 ml [sodium chloride 0.9 % intravenous solution] Route: IV; Rate: 100 kc3 mL/hr; Site: right antecubital; 18:15 Drug: morphine 4 mg [morphine 4 mg/mL intravenous cartridge (1 mL)] {Note: 96.6 (o) - kc3 70 - 20 - 106/63 - 95%.} Route: IVP; Site: right antecubital; 18:54 Drug: morphine 4 mg [morphine 4 mg/mL intravenous cartridge (1 mL)] {Note: Pain = 6/10 srm from 10/16. VS = 111/51 - 62 - 20 - 95%..} Route: IVP; Site: right antecubital; 19:49 Drug: HYDROcodone-acetaminophen 4 pack- 1 packets [hydrocodone 5 mg-acetaminophen 325 kc3 mg tablet (1 tabs)] {Co-Signature: mgs (Jorge Flores RN).} Route: PO; Signatures: Dispatcher [employer] EDMS Kaz Garcia RN RN dwg Shirley lAanis, Reg Reg gb Constance Coreas, SHERIFFS DETECTIVE Orly Emanuel Kelsi, RN RN kc3 Guillermina Bailon, Reg Reg ks16 Jackie Sepulveda RN srm Jorge Flores RN mgs The chart was reviewed and I authenticate all verbal orders and agree with the evaluation and treatment provided.Corrections: (The following items were deleted from the chart) 19:03 18:59 MRI ABDOMEN WITHOUT CONTRAST ordered. EDMS EDMS 19:27 19:03 MRI ABD W/O FOL WITH ordered. EDMS EDMS Attachments: 18:18 [facility] Payment Agreement [email or web address] 04/26 10:19 T-Sheet-- Draft Copy gb Chart Complete MTDD
--- NOTE | 2016-04-27 21:00 | EDDOCDS ---
Nurse's Notes [facility] Name: Monty Alexander Age: 25 yrs Sex: Male : 1990 Arrival Date: 04/25/2016 Time: 13:57 Bed TR8 Private MD: NO PRIMARY PHYSICIAN, . Diagnosis: Upper abdominal pain, unspecified Presentation: 04/25 14:00 Presenting complaint: Patient states: LUQ pain for 4 days. Risk factors: the patient dwg reports not having a history of previous torsion. Adult Sepsis Screening: The patient does not have new or worsening altered mentation. Patient's respiratory rate is less than 22. Systolic blood pressure is greater than 100. Patient has a qSOFA score of 0- Negative Sepsis Screen. Suicide/Homicide risk assessment- the patient denies having any suicidal and/or homicidal ideations and does not present with any other emotional, behavioral or mental health complaints. Status: Patient is not a duplicating machine servicer or dependent. Transition of care: patient was not received from another setting of care. 14:00 Acuity: SHANI Level 3 dwg 14:00 Method Of Arrival: Walkin/Carried/Asstd dwg Triage Assessment: 14:01 General: Appears in no apparent distress. Pain: Pain currently is 8 out of 10 on a pain dwg scale. HIV screening NA for this visit Offered previously. Historical: - Allergies: Amoxicillin (Rash); Azithromycin (Hives); Ketorolac (Upset stomach); Pediazole (Hives); Penicillins; - Home Meds: 1. none - PMHx: Anxiety; Depression; Ulcerative Colitis; - PSHx: Appendectomy; - Social history: Smoking status: Patient uses tobacco products, current every day smoker. No barriers to communication noted, The patient speaks fluent Mongolian. - Family history: Not pertinent. - : The pt / caregiver states he / she is not on anticoagulants. Home medication list is obtained from the patient. - Exposure Risk Screening:: None identified. Screenin:23 Screening information is obtained from the patient. Primary language is Mongolian. Fall jam1 risk: No risks identified. Assistance ADL's: requires no assistance with activities of daily living. Abuse/DV Screen: The patient / caregiver reports he/she is: not in a situation that causes fear, pain or injury. Nutritional screening: No deficits noted. Exposure Risk Screening: None identified. Advance Directives: Currently, there is no health care proxy. There is no active DNR order. There is no living will. There is no Power of [place]. Advance directive information has not previously been placed in an [facility] medical record. Further advance directive information is declined. home support is adequate. Assessment: 15:30 General: Appears in no apparent distress, comfortable, Behavior is appropriate for age, kc3 cooperative. Pain: Location: abdomen Pain currently is 8 out of 10 on a pain scale. Neurological: Level of Consciousness is awake, alert, obeys commands, Oriented to person, place, time. Respiratory: Respiratory effort is even, unlabored, Respiratory pattern is regular, symmetrical. GI: Abdomen is flat, Bowel sounds present X 4 quads. Abd is soft Abd is tender to palpation Reports nausea. Derm: Skin is pink, warm & dry. Musculoskeletal: Circulation, motion, and sensation intact. 17:00 General: Appears in no apparent distress, comfortable, Behavior is appropriate for age, kc3 cooperative. Pain: Location: abdomen. Neurological: Level of Consciousness is awake, alert, obeys commands, Oriented to person, place, time. Respiratory: Respiratory effort is even, unlabored. GI: Reports nausea. Derm: Skin is pink, warm & dry. 18:00 General: Appears in no apparent distress, comfortable, Behavior is appropriate for age, kc3 cooperative. Pain: Location: abdomen. Neurological: Level of Consciousness is awake, alert, obeys commands, Oriented to person, place, time. Respiratory: Respiratory effort is even, unlabored. Derm: Skin is pink, warm & dry. 19:15 General: Pt resting on stretcher watching tv. No distress noted. Respirations even and kc3 unlabored. Will continue to monitor. . 19:52 General: Appears in no apparent distress, comfortable, Behavior is appropriate for age, kc3 cooperative. Pain: Location: abdomen. Neurological: Level of Consciousness is awake, alert, obeys commands, Oriented to person, place, time. Respiratory: Respiratory effort is even, unlabored. Derm: Skin is pink, warm & dry. Vital Signs: 13:58 BP 117 / 67; Pulse 107; Resp 16; Temp 97.3(O); Pulse Ox 99% ; Weight 79.38 kg; Height 5 cmb ft. 11 in. (180.34 cm); Pain 8/10; 16:30 BP 124 / 58; Pulse 73; Resp 18; Temp 96.0; Pulse Ox 98% ; Pain 8/10; jam1 16:42 BP 134 / 87; Pulse 80; Pain 7/10; kc3 19:55 BP 159 / 70; Pulse 61; Resp 18; Temp 96.7(O); Pulse Ox 96% on R/A; kc3 13:58 Body Mass Index 24.41 (79.38 kg, 180.34 cm) cmb Vitals: 13:58 Log In Time: April 25, 2016 at 13:57. cmb ED Course: 13:57 Patient visited by Amanda Barahona. cmb 13:57 Patient moved to Waiting cmb 13:58 NO PRIMARY PHYSICIAN, . is Private Physician. cmb 13:59 Patient moved to Pre RCE cmb 14:01 Triage Initiated dwg 14:58 Christofer Quintana,RN is Primary Nurse. mb9 14:59 Constance Coreas FNP is PHCP. le 14:59 Patient moved to I1 / M1 le 15:18 Patient visited by Constance Coreas FNP. le 15:18 Patient visited by Constance Coreas FNP. le 15:23 Pt greeted and oriented to ED. Patient advised of names of staff involved in care, [facility] location of call escobar, wait times and NPO status. Patient has correct armband on for positive identification. Placed in gown. Bed in low position. Call light in reach. Side rails up X 1. Door closed. 16:00 Patient visited by Glenny Neely RN. kc3 16:00 Basic Metabolic Profile Sent. 3 16:00 CBC with Diff Sent. kc3 16:00 Lipase Sent. kc3 16:00 Liver Profile Sent. kc3 16:00 Inserted saline lock: 20 gauge in right antecubital area and blood collected. The kc3 patient tolerated the procedure well. 16:36 Patient visited by Glenny Neely RN. kc3 17:[address] dsf 17:22 Patient visited by Glenny Neely RN. kc3 17:22 Patient moved to I1 / M1 kc3 18:12 Patient visited by Glenny Neely RN. kc3 18:18 [facility] [place] [facility] [place] was scanned into [employer] and attached to record. ks16 18:22 CT ABD & PELVIS: IV and Oral Contrast Returned. EDMS 19:19 Patient visited by Glenny Neely RN. kc3 19:31 Steve Meyer is Referral Physician. le 19:31 [facility] is Referral Physician. le 19:54 The patient / caregiver is instructed regarding the plan of care and ED course. kc3 19:54 Discontinued IV lock intact, bleeding controlled, pressure dressing applied, No kc3 redness/swelling at site. No procedures done that require assistance. 19:56 Patient moved to [address] 04/26 10:19 T-Sheet-- Draft Copy was scanned into [employer] and attached to record. gb Administered Medications: 04/25 15:40 Drug: Diatrizoate Meglumine & Sodium 10 ml [diatrizoate meglumine and diat.sodium 66 kc3 %-10 % oral solution (10 mL)] Route: PO; 16:00 Drug: NS 0.9% 1000 ml [sodium chloride 0.9 % intravenous solution] Route: IV; Rate: kc3 bolus; Site: right antecubital; 18:12 Follow up: IV Status: Completed infusion kc3 16:00 Drug: Ondansetron 4 mg [ondansetron HCl 2 mg/mL intravenous solution (2 mL)] Route: kc3 IVP; Site: right antecubital; 18:11 Follow up: Response: Nausea is unchanged kc3 16:01 Drug: morphine 4 mg [morphine 4 mg/mL intravenous cartridge (1 mL)] Route: IVP; Site: kc3 right antecubital; 16:10 Drug: Diatrizoate Meglumine & Sodium 10 ml [diatrizoate meglumine and diat.sodium 66 kc3 %-10 % oral solution (10 mL)] Route: PO; 16:42 Drug: morphine 4 mg [morphine 4 mg/mL intravenous cartridge (1 mL)] Route: IVP; Site: kc3 right antecubital; 16:42 Follow up: BP 134 / 87; Pulse 80 bpm; Pain 7/10 Adult kc3 18:12 Follow up: Response: Pain is unchanged, physician notified kc3 16:54 Drug: Promethazine 25 mg [promethazine 25 mg/mL injection solution (1 mL)] Route: IVP; kc3 Site: right antecubital; 17:54 Follow up: Response: No Adverse Reaction kc3 18:11 Drug: NS 0.9% 1000 ml [sodium chloride 0.9 % intravenous solution] Route: IV; Rate: 100 kc3 mL/hr; Site: right antecubital; 18:15 Drug: morphine 4 mg [morphine 4 mg/mL intravenous cartridge (1 mL)] {Note: 96.6 (o) - kc3 70 - 20 - 106/63 - 95%.} Route: IVP; Site: right antecubital; 18:54 Drug: morphine 4 mg [morphine 4 mg/mL intravenous cartridge (1 mL)] {Note: Pain = /10 srm from 10/16. VS = 111/51 - 62 - 20 - 95%..} Route: IVP; Site: right antecubital; 19:49 Drug: HYDROcodone-acetaminophen 4 pack- 1 packets [hydrocodone 5 mg-acetaminophen 325 kc3 mg tablet (1 tabs)] {Co-Signature: mgs (Jorge Flores RN).} Route: PO; Order Results: Lab Order: Basic Metabolic Profile; SPEC'M 04/25/16 15:48 Test: GLUCOSE, FASTING; Value: 101; Range: 70-105; Units: MG/DL; Status: F Test: BLOOD UREA NITROGEN; Value: 14; Range: 7-18; Units: MG/DL; Status: F Test: CREATININE FOR GFR; Value: 1.12; Range: 0.70-1.30; Units: MG/DL; Status: F Test: GLOMERULAR FILTRATION RATE; Value: > 60.0; Range: >60; Status: F Test: SODIUM LEVEL; Value: 143; Range: 136-145; Units: MEQ/L; Status: F Test: POTASSIUM SERUM; Value: 4.3; Range: 3.5-5.1; Units: MEQ/L; Status: F Test: CHLORIDE LEVEL; Value: 103; Range: 98-107; Units: MEQ/L; Status: F Test: CARBON DIOXIDE LEVEL; Value: 33; Range: 21-32; Abnormal: Above high normal; Units: MEQ/L; Status: F Test: ANION GAP; Value: 7; Range: 8-16; Abnormal: Below low normal; Units: MEQ/L; Status: F Test: CALCIUM LEVEL; Value: 9.3; Range: 8.5-10.1; Units: MG/DL; Status: F Test Note: ; Units are mL/min/1.73 m2 Chronic Kidney Disease Staging per NKF: Stage I & II GFR >=60 Normal to Mildly Decreased Stage III GFR 30-59 Moderately Decreased Stage IV GFR 15-29 Severely Decreased Stage V GFR <15 Very Little GFR Left ESRD GFR <15 on HEMMER LOCKSTITCH Lab Order: CBC with Diff; SPEC'M 04/25/16 15:48 Test: WHITE BLOOD COUNT; Value: 8.3; Range: 4.0-10.0; Units: K/mm3; Status: F Test: RED BLOOD COUNT; Value: 5.48; Range: 4.30-6.10; Units: M/mm3; Status: F Test: HEMOGLOBIN; Value: 15.8; Range: 14.0-18.0; Units: g/dl; Status: F Test: HEMATOCRIT; Value: 48.1; Range: 42.0-52.0; Units: %; Status: F Test: MEAN CORPUSCULAR VOLUME; Value: 87.9; Range: 80.0-96.0; Units: fl; Status: F Test: MEAN CORPUSCULAR HEMOGLOBIN; Value: 28.9; Range: 27.0-33.0; Units: pg; Status: F Test: MEAN CORPUSCULAR HGB CONC; Value: 32.9; Range: 32.0-36.5; Units: g/dl; Status: F Test: RED CELL DISTRIBUTION WIDTH; Value: 13.2; Range: 11.5-14.5; Units: %; Status: F Test: PLATELET COUNT, AUTOMATED; Value: 204; Range: 150-450; Units: k/mm3; Status: F Test: NEUTROPHILS %; Value: 55.6; Range: 36.0-66.0; Units: %; Status: F Test: LYMPH %; Value: 32.7; Range: 24.0-44.0; Units: %; Status: F Test: MONO %; Value: 6.2; Range: 0.0-5.0; Abnormal: Above high normal; Units: %; Status: F Test: EOS %; Value: 1.8; Range: 0.0-3.0; Units: %; Status: F Test: BASO %; Value: 1.5; Range: 0.0-1.0; Abnormal: Above high normal; Units: %; Status: F Test: LARGE UNSTAINED CELL %; Value: 2.3; Range: 0.0-4.0; Units: %; Status: F Test: NEUTROPHILS #; Value: 4.6; Range: 1.8-7.7; Units: K/mm3; Status: F Test: LYMPH #; Value: 2.9; Range: 1.5-6.5; Units: K/mm3; Status: F Test: MONO #; Value: 0.5; Range: 0.0-0.8; Units: K/mm3; Status: F Test: EOS #; Value: 0.2; Range: 0.0-0.50; Units: K/mm3; Status: F Test: BASO #; Value: 0.1; Range: 0.0-0.2; Units: K/mm3; Status: F Test: LARGE UNSTAINED CELL #; Value: 0.2; Range: 0.0-0.4; Units: K/mm3; Status: F Lab Order: Lipase; SPEC' 04/25/16 15:48 Test: LIPASE; Value: 180; Range: 73-393; Units: U/L; Status: F Lab Order: Liver Profile; [facility] 04/25/16 15:48 Test: AST/SGOT; Value: 19; Range: 15-37; Units: U/L; Status: F Test: ALT/SGPT; Value: 36; Range: 12-78; Units: U/L; Status: F Test: ALKALINE PHOSPHATASE; Value: 85; Range: 45-117; Units: U/L; Status: F Test: BILIRUBIN,TOTAL; Value: 0.2; Range: 0.2-1.0; Units: MG/DL; Status: F Test: BILIRUBIN,DIRECT; Value: < 0.1; Range: 0.0-0.2; Units: MG/DL; Status: F Test: TOTAL PROTEIN; Value: 7.7; Range: 6.4-8.2; Units: GM/DL; Status: F Test: ALBUMIN; Value: 4.2; Range: 3.2-5.2; Units: GM/DL; Status: F Test: ALBUMIN/GLOBULIN RATIO; Value: 1.20; Range: 1.00-1.93; Status: F Radiology Order: CT ABD & PELVIS: IV and Oral Contrast Test: CT ABD & PELVIS: IV and Oral Contrast REASON FOR EXAMINATION: upper abd pain, hx of pancreas "prob"; CT ABDOMEN AND PELVIS WITH CONTRAST:; ; HISTORY: Upper abdominal pain.; ; CONTRAST: Isovue 370, 75 mL.; ; COMPARISON: 03/06/2016.; ; The posterior body and tail of the pancreas are enlarged and irregular in; contour, however, unchanged compared to the previous study. The liver,; gallbladder, spleen, adrenal glands and kidneys are normal in appearance. There; is no mass, adenopathy or free fluid. There is thickening of the wall of the; descending and sigmoid colon. The lumen is decreased in caliber. These findings; are unchanged compared to the previous study. The visualized lungs are clear.; ; IMPRESSION:; ; 1. There is enlargement and irregularity of the posterior body and tail of the; pancreas. This is unchanged compared to the previous study. MR may be helpful for; further evaluation to exclude a mass.; ; 2. There is thickening of the wall of the descending and sigmoid colon. The lumen; is decreased in caliber. These findings are unchanged compared to the previous; study and are suspicious for inflammatory bowel disease.; ; CT PELVIS:; ; The prostate gland and urinary bladder are normal in appearance. There is; thickening of the wall of the descending and sigmoid colon. The lumen is decrease; in caliber. These findings are unchanged compared to the previous study. There is; no mass, adenopathy or free fluid. A small left inguinal hernia is present.; ; IMPRESSION:; ; 1. There is thickening of the wall of the descending and sigmoid colon . The; lumen is decreased in caliber. These findings are unchanged compared to the; previous study and are suspicious for inflammatory bowel disease.; ; 2. Small left inguinal hernia.; ; ; Signed by; Shahram Gomez MD 04/25/2016 06:10 P; Outcome: 19:31 Discharge ordered by Provider. le 19:54 Discharge Assessment: Patient awake, alert and oriented x 3. No cognitive and/or kc3 functional deficits noted. Patient verbalized understanding of disposition instructions. patient administered narcotics - yes. Pt provided with safe discharge. The following High Risk Discharge criteria are identified: None. Condition: stable. Discharge instructions given to patient, Instructed on discharge instructions, follow up and referral plans. medication usage, Demonstrated understanding of instructions, medications, Pt was receptive of discharge instructions/ teaching. Prescriptions given X 1. CT Study completed. Property :Personal belongings accompany Pt. 19:59 Patient left the ED. kc3 Signatures: Dispatcher [employer] EDKaz Camejo, RN RN Jackie Hankins RN RN Daniela Harper, AUTHORS MOTIVATIONAL AUTHORS MOTIVATIONAL jam1 Shirley Alanis, Reg Reg gb Constance Coreas, FORESTRY LABORER FORESTRY LABORER Kaila AnandRN RN dsf Orly Kim Chelsea cmChristofer DownsRN RN mb9 Glenny NeelyRN RN kc3 Guillermina Bailon, Reg Reg ks16 Jorge Flores RN mgs Corrections: (The following items were deleted from the chart) 16:42 16:36 BP 134 / 87; Pulse 80 bpm kc3 kc3 Chart Complete MTDD
== END 2016-04-25 19:59 | disposition home or self-care (01) ==
LOC: M ED 13:57
DX: R10.12 Left upper quadrant pain (principal); R11.2 Nausea with vomiting, unspecified; R19.7 Diarrhea, unspecified; R93.5 Abnormal findings on diagnostic imaging of other abdominal regions, including retroperitoneum; F41.9 Anxiety disorder, unspecified; F32.9 Major depressive disorder, single episode, unspecified; Z87.19 Personal history of other diseases of the digestive system; Z88.0 Allergy status to penicillin; Z88.1 Allergy status to other antibiotic agents; Z88.6 Allergy status to analgesic agent; F17.210 Nicotine dependence, cigarettes, uncomplicated
CPT/HCPCS: 36415; 74177; 80048; 80076; 83690; 85025; 96361; 96374; 96375; 96376; 99284; J2405; Q9963; Q9967

== ENCOUNTER → 2016-08-23 | Outpatient (REF) | payer MEDICAID, OTHER, SELFPAY ==
[2016-08-23 20:31] LABS: BASO % 0.5 % (0.0-1.0); EOS # 0.1 K/mm3 (0.0-0.50); EOS % 0.9 % (0.0-3.0); LARGE UNSTAINED CELL # 0.2 K/mm3 (0.0-0.4); LARGE UNSTAINED CELL % 2.5 % (0.0-4.0); MEAN CORPUSCULAR HEMOGLOBIN 31.2 pg (27.0-33.0); MEAN CORPUSCULAR HGB CONC 34.3 g/dl (32.0-36.5); MEAN CORPUSCULAR VOLUME 91.1 fl (80.0-96.0); MONO # 0.5 K/mm3 (0.0-0.8); MONO % 5.5 % (0.0-5.0); NEUTROPHILS # 4.3 K/mm3 (1.8-7.7); NEUTROPHILS % 53.5 % (36.0-66.0); PLATELET COUNT, AUTOMATED 244 k/mm3 (150-450); RED CELL DISTRIBUTION WIDTH 12.5 % (11.5-14.5); WHITE BLOOD COUNT 8.1 K/mm3 (4.0-10.0)
[2016-08-23 20:37] LABS: ANION GAP 6 MEQ/L (8-16); BLOOD UREA NITROGEN 17 MG/DL (7-18); CALCIUM LEVEL 9.3 MG/DL (8.5-10.1); CARBON DIOXIDE LEVEL 31 MEQ/L (21-32); CHLORIDE LEVEL 104 MEQ/L (98-107); CREATININE FOR GFR 1.28 MG/DL (0.70-1.30); GLOMERULAR FILTRATION RATE > 60.0 (>60); GLUCOSE, FASTING 91 MG/DL (70-105); POTASSIUM SERUM 4.1 MEQ/L (3.5-5.1); SODIUM LEVEL 141 MEQ/L (136-145)
== END ==
LOC: M SFHCLERA 15:26
PROVIDERS: ATTEND Physician Assistant
DX: R00.2 Palpitations (principal); R06.09 Other forms of dyspnea

== ENCOUNTER 2016-09-28 13:36 | Emergency (ER) | payer MEDICAID, SELFPAY ==
[~2016-09-28] VITALS: Ht 180.3 cm; Wt 72.8 kg
[~2016-09-28 13:36] MED LIST changes: +TRAZ-136 PO; -TRAZ100T4 PO
[2016-09-28] MEDS ORDERED: ONDANSETRON 4 MG ORAL DISINTEGRATING TAB (S0181) PO ONE (14:30)
[2016-09-28] MEDS ORDERED: FAMOTIDINE 20 MG TAB PO ONE (14:30)
[2016-09-28] MEDS ORDERED: GI COCKTAIL 50ML BTL(HYOSCYAMINE/MAALOX/LIDOCAINE VISCOUS)(1:3:1) PO ONE (14:30)
[2016-09-28 14:47] LABS: BASO # 0.1 K/mm3 (0.0-0.2); EOS # 0.1 K/mm3 (0.0-0.50); EOS % 0.6 % (0.0-3.0); LARGE UNSTAINED CELL # 0.2 K/mm3 (0.0-0.4); LARGE UNSTAINED CELL % 2.3 % (0.0-4.0); LYMPH # 2.8 K/mm3 (1.5-6.5); LYMPH % 28.4 % (24.0-44.0); MEAN CORPUSCULAR HEMOGLOBIN 31.4 pg (27.0-33.0); MEAN CORPUSCULAR HGB CONC 34.7 g/dl (32.0-36.5); MEAN CORPUSCULAR VOLUME 90.6 fl (80.0-96.0); MONO # 0.6 K/mm3 (0.0-0.8); MONO % 5.7 % (0.0-5.0); PLATELET COUNT, AUTOMATED 243 k/mm3 (150-450); RED CELL DISTRIBUTION WIDTH 12.4 % (11.5-14.5); WHITE BLOOD COUNT 9.7 K/mm3 (4.0-10.0)
[2016-09-28] MEDS ORDERED: NORCO, ANEXSIA 5/325MG TABLET (HYDROcodone/ACETAMINOPHEN) PO ONE (15:00)
[2016-09-28 15:13] LABS: ALBUMIN 4.8 GM/DL (3.2-5.2); ALKALINE PHOSPHATASE 65 U/L (45-117); ALT/SGPT 24 U/L (12-78); AMYLASE 49 U/L (25-115); ANION GAP 7 MEQ/L (8-16); AST/SGOT 25 U/L (15-37); BILIRUBIN,DIRECT 0.2 MG/DL (0.0-0.2); BILIRUBIN,TOTAL 0.9 MG/DL (0.2-1.0); BLOOD UREA NITROGEN 17 MG/DL (7-18); CALCIUM LEVEL 9.1 MG/DL (8.5-10.1); CARBON DIOXIDE LEVEL 28 MEQ/L (21-32); CHLORIDE LEVEL 104 MEQ/L (98-107); CREATININE FOR GFR 1.17 MG/DL (0.70-1.30); GLOMERULAR FILTRATION RATE > 60.0 (>60); GLUCOSE, FASTING 101 MG/DL (70-105); POTASSIUM SERUM 4.2 MEQ/L (3.5-5.1); SODIUM LEVEL 139 MEQ/L (136-145); TOTAL PROTEIN 7.8 GM/DL (6.4-8.2)
--- NOTE | 2016-09-28 15:23 | REP ---
Abdominal right upper quadrant ultrasound: There is a negative Giraldo's sign to transducer pressure. There is no cholelithiasis, gallbladder wall thickening or pericholecystic fluid. There is no intrahepatic or extrahepatic biliary duct dilatation, the common duct measures 3.0 mm in diameter. The hepatic parenchyma is homogeneous and otherwise unremarkable. The pancreas is obscured by bowel gas. There is no right renal hydronephrosis, calculus, mass or cyst. Right kidney is normal size measuring 10.0 centimeters craniocaudad length. Impression: Essentially negative abdominal right upper quadrant ultrasound. Signed by Kaz Ingram MD 09/28/2016 03:15 P
[2016-09-28] MEDS ORDERED: PRIL20CA9 PO (15:36)
[2016-09-28] MEDS ORDERED: ZOFR4TAB3 PO (15:36)
[2016-09-28 15:46] VITALS: BP 136/74
== END 2016-09-28 16:11 | disposition home or self-care (01) ==
LOC: M ED 14:31
DX: K21.9 Gastro-esophageal reflux disease without esophagitis (principal); F17.210 Nicotine dependence, cigarettes, uncomplicated

== ENCOUNTER 2016-10-19 11:14 | Emergency (ER) | payer OTHER ==
[~2016-10-19] VITALS: Ht 175.3 cm; Wt 72.7 kg
[~2016-10-19 11:14] MED LIST changes: +PRIL20CA9 PO; +ZOFR4TAB3 PO
[2016-10-19] MEDS ORDERED: ONDANSETRON 4MG/2ML VIAL (J2405) IV ONE (12:00)
[2016-10-19 12:27] LABS: ADD MANUAL DIFFER YES; MEAN CORPUSCULAR HEMOGLOBIN 31.9 pg (27.0-33.0); MEAN CORPUSCULAR HGB CONC 35.3 g/dl (32.0-36.5); MEAN CORPUSCULAR VOLUME 90.2 fl (80.0-96.0); PLATELET COUNT, AUTOMATED 187 k/mm3 (150-450); RED CELL DISTRIBUTION WIDTH 12.4 % (11.5-14.5); WHITE BLOOD COUNT 5.8 K/mm3 (4.0-10.0)
[2016-10-19] MEDS ORDERED: NS 1,000 ML IV ONE (13:15)
[2016-10-19] MEDS ORDERED: ACETAMINOPHEN TAB 650MG DOSE (2X325MG) PO ONE (13:15)
[2016-10-19] MEDS ORDERED: MORPHINE 4 MG/ML 1ML SYRINGE IV ONE ×2 (13:15→15:15)
[2016-10-19] MEDS ORDERED: GASTROGRAFIN SOLUTION 30ML (Q9963) PO ONE (13:25)
--- NOTE | 2016-10-19 13:36 | REP ---
Chest two views HISTORY: Fever Comparison: 03/27/2015 The lungs are hyperinflated. The lungs are clear. The heart is normal in size. The pulmonary vasculature is normal in appearance. The bony structure is intact. IMPRESSION: No acute disease. Signed by Shahram Gomez MD 10/19/2016 01:27 P
[2016-10-19] MEDS ORDERED: GASTROGRAFIN SOLUTION 30ML PO ONE (13:55)
[2016-10-19 13:56] LABS: ALBUMIN/GLOBULIN RATIO 1.18 (1.00-1.93); ALKALINE PHOSPHATASE 50 U/L (45-117); ALT/SGPT 25 U/L (12-78); ANION GAP 5 MEQ/L (8-16); AST/SGOT 19 U/L (15-37); BILIRUBIN,DIRECT 0.2 MG/DL (0.0-0.2); BLOOD UREA NITROGEN 16 MG/DL (7-18); CARBON DIOXIDE LEVEL 28 MEQ/L (21-32); CHLORIDE LEVEL 104 MEQ/L (98-107); CREATININE FOR GFR 1.37 MG/DL (0.70-1.30); GLOMERULAR FILTRATION RATE > 60.0 (>60); GLUCOSE, FASTING 131 MG/DL (70-105); SODIUM LEVEL 137 MEQ/L (136-145); TOTAL PROTEIN 7.4 GM/DL (6.4-8.2)
[2016-10-19] MEDS ORDERED: ISOVUE-370 76% 100ML VIAL (Q9967) As Ordered ONE (14:10)
[2016-10-19] MEDS ORDERED: IBUPROFEN 600 MG TAB PO ONE (15:15)
--- NOTE | 2016-10-19 15:23 | REP ---
REASON FOR EXAMINATION: Abdominal pain with pyrexia and vomiting. Comparison examination 09/28/2016 from [facility] which was normal. Contrast utilized: 100 mL Isovue 370. The lung hwang are unchanged. There are no pleural or pericardial effusions. The liver, gallbladder, spleen, and pancreas are unchanged and again seen to be within normal limits. The abdominal aorta and para-aortic regions are again seen to be within normal limits. There is no free fluid or free air in the abdomen. The bowel loops and their mesenteries are within normal limits. CT PELVIS: The bowel loops and their mesenteries are within normal limits. There is no mass or adenopathy. There is no free fluid or free air. Bone window technique throughout the exam shows the osseous structures to be stable and intact. IMPRESSION: No acute intra-abdominal or intrapelvic disease. No significant change from the prior exam. Report from the prior exam indicated hepatomegaly. I cannot say with certainty that there is, in fact, hepatomegaly. There might be a Yisel's liver lobe which extends the greatest hepatic dimension by CT. If hepatomegaly is of clinical concern, then an exact measurement could be obtained with liver/spleen scintigraphy. The tip of the inferior hepatic edge, does not reach the level of the iliac crest. The maximal dimension by CT measures 24 cm. This does not frankly indicate hepatomegaly but may, at least, be borderline. Clinical correlation and appropriate followup is necessary if clinically indicated.? Signed by Karthikeyan Hook DO 10/19/2016 03:32 P
[2016-10-19 16:36] VITALS: BP 129/66
--- NOTE | 2016-10-21 07:54 | ED PDOC ---
Post-Departure Follow-Up dr barth faxed formal report of ct abd/p for fu Trevor Rubalcava MD Oct 21, 2016 07:54
== END 2016-10-19 16:48 | disposition home or self-care (01) ==
LOC: M ED 11:14 → EDBD 11:14 → M ED 16:48
DX: R10.84 Generalized abdominal pain (principal); R50.9 Fever, unspecified; F17.210 Nicotine dependence, cigarettes, uncomplicated

== ENCOUNTER → 2017-01-07 | Outpatient (REF) | payer MEDICAID ==
[~2017-01-07] MED LIST changes: +IBUP80TA PO; +NORCOTAB PO; +ZOLO50TA PO
== END ==
LOC: M SFHCLERA 16:34
PROVIDERS: ATTEND Physician Assistant
DX: J02.9 Acute pharyngitis, unspecified (principal)

== ENCOUNTER 2017-01-14 18:31 | Emergency (ER) | payer OTHER, SELFPAY ==
[~2017-01-14] VITALS: Ht 180.3 cm; Wt 72.3 kg
[~2017-01-14 18:31] MED LIST changes: -IBUP80TA PO; -NORCOTAB PO; -ZOLO50TA PO
[2017-01-14 18:32] VITALS: BP 135/79
--- NOTE | 2017-01-15 02:02 | REP ---
Clinical: Trauma with pain . Technique: AP, lateral, bilateral oblique views of the right elbow. Findings: No acute fracture or dislocation is appreciated. Joint spaces and surrounding soft tissues appear normal. Lateral view demonstrates normal positioning to the anterior and posterior fat pads without evidence for effusion/hemarthrosis. No subcutaneous emphysema or foreign body identified. Impression: Normal right elbow radiographs. Signed by Gilberto Hahn MD 01/15/2017 01:54 A
== END 2017-01-14 22:28 | disposition left against medical advice (07) ==
LOC: M ED 18:31
DX: M25.521 Pain in right elbow (principal); Z53.21 Procedure and treatment not carried out due to patient leaving prior to being seen by health care provider

== ENCOUNTER → 2017-01-16 | Outpatient (CLI) | payer OTHER ==
[~2017-01-16] MED LIST changes: +IBUP80TA PO; +NORCOTAB PO; +ZOLO50TA PO
--- NOTE | 2017-01-17 03:34 | REP ---
Clinical: Abnormal thyroid function tests. Technique: Real time mazariegos scale and color evaluation using curved array transducer. Findings: Thyroid gland is normal in contour, size, and parenchymal echogenicity. No abnormal nodules or cystic lesions are appreciated. Right lobe measures 5.2 x 1.4 x 1.5 cm. Isthmus measures 3.9 mm in width. Left lobe measures 4.1 x 1.3 x 1.1 cm. Impression: Normal thyroid gland. Signed by Gilberto Hahn MD 01/17/2017 03:25 A
== END ==
LOC: M LRY 13:47
PROVIDERS: ATTEND Family Medicine
DX: R94.6 Abnormal results of thyroid function studies (principal)

== ENCOUNTER 2017-02-01 12:14 | Emergency (ER) | payer MEDICAID, OTHER ==
[~2017-02-01] VITALS: Ht 180.3 cm; Wt 72.7 kg
[~2017-02-01 12:14] MED LIST changes: -IBUP80TA PO; -NORCOTAB PO; -ZOLO50TA PO
[2017-02-01] MEDS ORDERED: NS 1,000 ML IV SCH (13:04)
[2017-02-01] MEDS ORDERED: PANTOPRAZOLE 40MG INJ (PROTONIX) (C9113) IV ONE (13:15)
[2017-02-01] MEDS ORDERED: SUCRALFATE 1 GM TAB PO ONE (13:15)
[2017-02-01] MEDS ORDERED: NS 1,000 ML IV ONE (13:15)
[2017-02-01] MEDS ORDERED: ONDANSETRON 4MG/2ML VIAL (J2405) IV ONE (13:15)
[2017-02-01] MEDS ORDERED: GI COCKTAIL 50ML BTL(HYOSCYAMINE/MAALOX/LIDOCAINE VISCOUS)(1:3:1) PO ONE (13:15)
[2017-02-01 13:27] LABS: BASO # 0.1 10^3/uL (0.0-0.2); BASO % 0.4 % (0.0-1.0); EOS # 0.1 10^3/uL (0.0-0.50); EOS % 0.9 % (0.0-3.0); IMMATURE GRANULOCYTE % 0.3 % (0-0); LYMPH # 3.7 10^3/uL (1.5-6.5); LYMPH % 28.6 % (24.0-44.0); MEAN CORPUSCULAR HEMOGLOBIN 30.2 pg (27.0-33.0); MEAN CORPUSCULAR HGB CONC 34.5 g/dl (32.0-36.5); MEAN CORPUSCULAR VOLUME 87.7 fl (80.0-96.0); MONO # 1.3 10^3/uL (0.0-0.8); MONO % 9.9 % (0.0-5.0); NEUTROPHILS # 7.7 10^3/uL (1.8-7.7); NEUTROPHILS % 59.9 % (36.0-66.0); PLATELET COUNT, AUTOMATED 270 10^3/uL (150-450); RED CELL DISTRIBUTION WIDTH 12.1 % (11.5-14.5); WHITE BLOOD COUNT 12.8 10^3/uL (4.0-10.0)
[2017-02-01 14:06] LABS: ALBUMIN 4.8 GM/DL (3.2-5.2); ALKALINE PHOSPHATASE 66 U/L (45-117); ALT/SGPT 25 U/L (12-78); ANION GAP 5 MEQ/L (8-16); AST/SGOT 19 U/L (15-37); BILIRUBIN,DIRECT 0.1 MG/DL (0.0-0.2); BILIRUBIN,TOTAL 0.5 MG/DL (0.2-1.0); BLOOD UREA NITROGEN 15 MG/DL (7-18); CARBON DIOXIDE LEVEL 29 MEQ/L (21-32); CHLORIDE LEVEL 105 MEQ/L (98-107); GLOMERULAR FILTRATION RATE > 60.0 (>60); GLUCOSE, FASTING 89 MG/DL (70-105); SODIUM LEVEL 139 MEQ/L (136-145)
[2017-02-01] MEDS ORDERED: GASTROGRAFIN SOLUTION 30ML PO ONE (14:15)
[2017-02-01] MEDS ORDERED: MORPHINE 4 MG/ML 1ML SYRINGE IV ONE (14:30)
[2017-02-01] MEDS ORDERED: GASTROGRAFIN SOLUTION 30ML (Q9963) PO ONE (14:45)
[2017-02-01] MEDS ORDERED: diphenhydrAMINE INJ 50MG/ML VIAL (J1200) IV ONE (15:15)
[2017-02-01] MEDS ORDERED: ISOVUE-370 76% 100ML VIAL (Q9967) As Ordered ONE (15:26)
[2017-02-01 15:41] VITALS: BP 121/67
[2017-02-01] MEDS ORDERED: NORCOTAB PO (16:08)
--- NOTE | 2017-02-01 16:17 | REP ---
CT abdomen and pelvis with IV and oral contrast: History: Abdominal pain. History of ulcers. Comparison CT study October 19, 2016. CT contrast dose: 100 mL of Isovue 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 Bowel gas pattern is normal. Lung bases are clear. Spleen is unremarkable. There is a diffuse pattern of periportal edema in the liver. This finding is new and nonspecific. Possibilities include acute hepatitis and cholangitis as well as other less likely etiologies such as congestive heart failure, trauma, and lymphatic obstruction. There is no visible hepatic mass or regional adenopathy. Spleen is unremarkable. No pancreatic lesion is seen. No adrenal lesion is observed. There is a small quantity of pericholecystic fluid around the gallbladder wall. No evidence of ascites. The patient is status post appendectomy. No adrenal lesion is seen. Kidneys enhance symmetrically are morphologically intact. No abdominal wall defect is seen. No bony destructive lesion is observed. Impression: Pattern of periportal edema or congestion and some slight pericholecystic fluid. The liver remains prominent in size with mid sagittal dimension of 18.8 cm similar to the prior CT. The periportal edema pattern is new. Possibilities include acute hepatitis and cholangitis. Post appendectomy. No other significant abnormality. Signed by Fortino Baez MD 02/01/2017 04:57 P
--- NOTE | 2017-02-02 06:53 | ED PDOC ---
Post-Departure Follow-Up radiology report faxed to Mercy Galeano MD Feb 02, 2017 06:53
== END 2017-02-01 16:21 | disposition home or self-care (01) ==
LOC: M ED 12:14
DX: B17.9 Acute viral hepatitis, unspecified (principal); Z72.0 Tobacco use
CPT/HCPCS: 74177; 80048; 80076; 83605; 83690; 85025; 86705; 86709; 86803; 87340; 96361; 96374; 96375; 99284; C9113; J1200; J2405; Q9963; Q9967

== ENCOUNTER 2017-02-15 14:55 | Emergency (ER) | payer OTHER ==
[~2017-02-15] VITALS: Ht 180.3 cm; Wt 74.1 kg
[~2017-02-15 14:55] MED LIST changes: +NORCOTAB PO
[2017-02-15] MEDS ORDERED: ZOLO50TA PO (15:04)
[2017-02-15 15:53] LABS: BASO % 0.4 % (0.0-1.0); EOS # 0.1 10^3/uL (0.0-0.50); EOS % 1.2 % (0.0-3.0); IMMATURE GRANULOCYTE % 0.2 % (0-0); LYMPH # 3.1 10^3/uL (1.5-6.5); LYMPH % 33.1 % (24.0-44.0); MEAN CORPUSCULAR HEMOGLOBIN 30.2 pg (27.0-33.0); MEAN CORPUSCULAR HGB CONC 34.3 g/dl (32.0-36.5); MONO # 0.8 10^3/uL (0.0-0.8); MONO % 8.8 % (0.0-5.0); NEUTROPHILS # 5.2 10^3/uL (1.8-7.7); NEUTROPHILS % 56.3 % (36.0-66.0); PLATELET COUNT, AUTOMATED 232 10^3/uL (150-450); RED CELL DISTRIBUTION WIDTH 12.6 % (11.5-14.5); WHITE BLOOD COUNT 9.3 10^3/uL (4.0-10.0)
[2017-02-15 16:16] LABS: INR 1.05
[2017-02-15 16:17] LABS: ALBUMIN 4.5 GM/DL (3.2-5.2); ALBUMIN/GLOBULIN RATIO 1.45 (1.00-1.93); ALKALINE PHOSPHATASE 72 U/L (45-117); ALT/SGPT 31 U/L (12-78); ANION GAP 4 MEQ/L (8-16); AST/SGOT 24 U/L (7-37); BILIRUBIN,DIRECT 0.1 MG/DL (0.0-0.2); BILIRUBIN,TOTAL 0.3 MG/DL (0.2-1.0); BLOOD UREA NITROGEN 16 MG/DL (7-18); CALCIUM LEVEL 9.3 MG/DL (8.5-10.1); CARBON DIOXIDE LEVEL 31 MEQ/L (21-32); CHLORIDE LEVEL 105 MEQ/L (98-107); CREATININE FOR GFR 1.31 MG/DL (0.70-1.30); GLOMERULAR FILTRATION RATE > 60.0 (>60); GLUCOSE, FASTING 119 MG/DL (70-105); POTASSIUM SERUM 4.6 MEQ/L (3.5-5.1); SODIUM LEVEL 140 MEQ/L (136-145); TOTAL PROTEIN 7.6 GM/DL (6.4-8.2)
--- NOTE | 2017-02-15 16:47 | REP ---
Right upper quadrant sonography: History: Right upper quadrant pain. Comparison study: September 28, 2016. Findings: Scanning through the right upper quadrant of the abdomen demonstrates a normal sized, thin-walled gallbladder without evidence of stone or polyp. Common bile duct is normal measuring 0.4 cm in greatest diameter. No focal liver lesion is seen. Liver size is normal. No pancreatic abnormality is observed. No right renal abnormality is seen. There is no evidence of ascites. The right kidney measures 11.0 x 5.1 x 3.5 cm. Impression: Negative right upper quadrant sonography. Signed by Fortino Baez MD 02/15/2017 04:38 P
[2017-02-15] MEDS ORDERED: IBUP80TA PO (16:59)
[2017-02-15] MEDS ORDERED: PERCOCET 5MG/325MG TAB PO ONE (17:00)
[2017-02-15 17:22] VITALS: BP 134/80
== END 2017-02-15 17:22 | disposition home or self-care (01) ==
LOC: M ED 14:55
DX: R10.11 Right upper quadrant pain (principal); J45.909 Unspecified asthma, uncomplicated; F41.9 Anxiety disorder, unspecified; F43.10 Post-traumatic stress disorder, unspecified; R56.9 Unspecified convulsions; Z79.899 Other long term (current) drug therapy; Z88.0 Allergy status to penicillin; Z88.1 Allergy status to other antibiotic agents; Z88.2 Allergy status to sulfonamides

== ENCOUNTER → 2017-03-11 | Outpatient (REF) | payer OTHER ==
[~2017-03-11] MED LIST changes: +IBUP80TA PO; +ZOLO50TA PO
== END ==
LOC: M SFHCLERA 15:11
PROVIDERS: ATTEND Nurse Practitioner Family
DX: J02.9 Acute pharyngitis, unspecified (principal)

== ENCOUNTER → 2017-03-21 | Outpatient (CLI) | payer OTHER ==
--- NOTE | 2017-03-22 10:23 | REP ---
RIGHT WRIST, FOUR VIEWS: There is no evidence of an acute fracture, dislocation or intrinsic bone disease. IMPRESSION: No fracture or dislocation. Signed by Kaz Canas MD 03/22/2017 10:37 A
--- NOTE | 2017-03-22 10:24 | REP ---
RIGHT HAND, FOUR VIEWS: There is no evidence of an acute fracture, dislocation or intrinsic bone disease. IMPRESSION: No fracture or dislocation. Signed by Kaz Canas MD 03/22/2017 10:37 A
== END ==
LOC: M LRY 18:15
PROVIDERS: ATTEND Nurse Practitioner Family
DX: S69.91XA Unspecified injury of right wrist, hand and finger(s), initial encounter (principal); X58.XXXA Exposure to other specified factors, initial encounter; Y92.89 Other specified places as the place of occurrence of the external cause; Y93.89 Activity, other specified; Y99.8 Other external cause status

== ENCOUNTER 2017-09-09 11:09 | Emergency (ER) | payer OTHER ==
[2017-09-09] MEDS: NORCO, ANEXSIA 5/325MG TABLET (HYDROcodone/ACETAMINOPHEN) PO (12:34)
== END 2017-09-09 12:38 | disposition home or self-care (01) ==
LOC: M ED 11:09
DX: S61.051A Open bite of right thumb without damage to nail, initial encounter (principal); L03.011 Cellulitis of right finger; W54.0XXA Bitten by dog, initial encounter; Y92.9 Unspecified place or not applicable; Y93.9 Activity, unspecified; Y99.9 Unspecified external cause status; Z79.899 Other long term (current) drug therapy; Z88.1 Allergy status to other antibiotic agents; Z88.0 Allergy status to penicillin; Z88.8 Allergy status to other drugs, medicaments and biological substances
CPT/HCPCS: 73140

== ENCOUNTER → 2017-09-13 | Outpatient (REF) | payer OTHER | LOC: M SFHCLERA 16:45 | DX: Z53.21 Procedure and treatment not carried out due to patient leaving prior to being seen by health care provider (principal) ==

== ENCOUNTER 2018-05-16 19:00 | Emergency (ER) | payer OTHER ==
[~2018-05-16] VITALS: Ht 180.3 cm; Wt 79.5 kg
[~2018-05-16 19:00] MED LIST changes: +CLEO300C2 PO; +DOXY100C37 PO; -TRAZ-136 PO; +TRAZ-163 PO; +ZOFR4TAB14 PO; -ZOFR4TAB3 PO
[2018-05-16 20:18] LABS: BASO # 0.1 10^3/uL (0.0-0.2); BASO % 0.7 % (0.0-1.0); EOS # 0.2 10^3/uL (0.0-0.50); EOS % 2.4 % (0.0-3.0); HEMATOCRIT 41.6 % (42.0-52.0); HEMOGLOBIN 14.5 g/dl (13.5-17.5); LYMPH # 3.4 10^3/uL (1.5-6.5); MEAN CORPUSCULAR HEMOGLOBIN 29.5 pg (27.0-33.0); MEAN CORPUSCULAR HGB CONC 34.9 g/dl (32.0-36.5); MEAN CORPUSCULAR VOLUME 84.7 fl (80.0-96.0); MONO # 0.6 10^3/uL (0.0-0.8); MONO % 7.1 % (0.0-5.0); NEUTROPHILS # 4.2 10^3/uL (1.8-7.7); NEUTROPHILS % 49.6 % (36.0-66.0); PLATELET COUNT, AUTOMATED 236 10^3/uL (150-450); RED BLOOD COUNT 4.91 10^6/uL (4.30-6.10); WHITE BLOOD COUNT 8.5 10^3/uL (4.0-10.0)
[2018-05-16 20:31] LABS: ALT/SGPT 23 U/L (12-78); BILIRUBIN,DIRECT < 0.1 MG/DL (0.0-0.2); BILIRUBIN,TOTAL 0.2 MG/DL (0.2-1.0); BLOOD UREA NITROGEN 15 MG/DL (7-18); CALCIUM LEVEL 8.7 MG/DL (8.5-10.1); CARBON DIOXIDE LEVEL 27 MEQ/L (21-32); CHLORIDE LEVEL 107 MEQ/L (98-107); CREATININE FOR GFR 1.19 MG/DL (0.70-1.30); GLOMERULAR FILTRATION RATE > 60.0 (>60); GLUCOSE, FASTING 91 MG/DL (70-100); LIPASE 84 U/L (73-393); POTASSIUM SERUM 4.1 MEQ/L (3.5-5.1); SODIUM LEVEL 139 MEQ/L (136-145)
[2018-05-16] MEDS ORDERED: ONDANSETRON 4MG/2ML VIAL (J2405) IV ONE (20:45)
[2018-05-16] MEDS ORDERED: NS 1,000 ML IV ONE (20:45)
[2018-05-16] MEDS ORDERED: PANTOPRAZOLE 40MG INJ (PROTONIX) (C9113) IV ONE (20:45)
[2018-05-16] MEDS ORDERED: KETOROLAC 30 MG/ML VIAL (J1885) IV ONE (20:45)
[2018-05-16] MEDS ORDERED: ISOVUE-370 76% 100ML VIAL (Q9967) As Ordered ONE (20:47)
[2018-05-16] MEDS ORDERED: diphenhydrAMINE INJ 50MG/ML VIAL (J1200) As Ordered ONE (21:20)
[2018-05-16] MEDS ORDERED: diphenhydrAMINE INJ 50MG/ML VIAL (J1200) IV STA (21:42)
--- NOTE | 2018-05-16 21:52 | REPVR ---
EXAM: CT Abdomen and Pelvis With Contrast EXAM DATE/TIME: 05/16/2018 8:51 PM CLINICAL HISTORY: 27 years old, male; Pain; Abdominal pain; Additional info: Llq pain TECHNIQUE: Axial computed tomography images of the abdomen and pelvis with intravenous contrast. All CT scans at this facility use at least one of these dose optimization techniques: automated exposure control; mA and/or kV adjustment per patient size (includes targeted exams where dose is matched to clinical indication); or iterative reconstruction. Coronal and sagittal reformatted images were created and reviewed. CONTRAST: 100 ml of ISOVUE 370 administered intravenously. COMPARISON: CT ABD/PEL W/IV ORAL CONTRAS 02/01/2017 3:29 PM FINDINGS: Lower thorax: No acute findings. ABDOMEN: Liver: Unremarkable. No mass. Gallbladder and bile ducts: Unremarkable. No calcified stones. No ductal dilation. Pancreas: Unremarkable. No ductal dilation. Spleen: Unremarkable. No splenomegaly. Adrenals: Normal. No mass. Kidneys and ureters: Unremarkable. No stones. No hydronephrosis. Stomach and bowel: Unremarkable. No obstruction. No mucosal thickening. Appendix: Status post appendectomy. PELVIS: Bladder: Unremarkable as visualized. Reproductive: Unremarkable as visualized. ABDOMEN and PELVIS: Intraperitoneal space: Unremarkable. No free air. No significant fluid collection. Bones/joints: No acute fracture. Soft tissues: Unremarkable. Vasculature: Unremarkable. No abdominal aortic aneurysm. Lymph nodes: Numerous small and slightly prominent mesenteric lymph nodes, nonspecific. Numerous tiny retroperitoneal lymph nodes with a left para-aortic lymph node measuring 8 mm on axial image 58. Tiny nonspecific bilateral inguinal lymph nodes. IMPRESSION: 1. Small and mildly prominent mesenteric lymph nodes, nonspecific. 2. Tiny nonspecific retroperitoneal lymph nodes. Electronically signed by: Rubén Busch On 05/16/2018 21:51:49 PM
[2018-05-16] MEDS ORDERED: ONDA4TAB6 PO (22:46)
[2018-05-16 23:01] VITALS: BP 116/56
== END 2018-05-16 23:03 | disposition home or self-care (01) ==
LOC: M ED 19:00
DX: R10.32 Left lower quadrant pain (principal); R56.9 Unspecified convulsions; J45.909 Unspecified asthma, uncomplicated; F43.10 Post-traumatic stress disorder, unspecified; F90.9 Attention-deficit hyperactivity disorder, unspecified type; F31.9 Bipolar disorder, unspecified; F41.9 Anxiety disorder, unspecified; F32.9 Major depressive disorder, single episode, unspecified; K27.9 Peptic ulcer, site unspecified, unspecified as acute or chronic, without hemorrhage or perforation; Z72.0 Tobacco use; Z79.899 Other long term (current) drug therapy; Z88.0 Allergy status to penicillin; Z88.1 Allergy status to other antibiotic agents; Z88.8 Allergy status to other drugs, medicaments and biological substances
CPT/HCPCS: 36415; 74177; 80048; 80076; 83690; 85025; 96374; 96375; 99284; C9113; J1200; J1885; J2405; Q9967

== ENCOUNTER → 2018-06-13 | Outpatient (REF) | payer OTHER ==
[~2018-06-13] MED LIST changes: +ONDA4TAB6 PO
[2018-06-13 14:54] LABS: INFLUENZA A AMPLIFICATION NEGATIVE (NEGATIVE); INFLUENZA B AMPLIFICATION NEGATIVE (NEGATIVE)
== END ==
LOC: M LAB REF 13:37
PROVIDERS: ATTEND Physician Assistant
DX: J11.1 Influenza due to unidentified influenza virus with other respiratory manifestations (principal)

== ENCOUNTER → 2019-02-23 | Outpatient (REF) | payer OTHER ==
[~2019-02-23] MED LIST changes: +HYDR-3715 PO; -NORCOTAB PO
[2019-02-24 14:03] LABS: CHLAMYDIA DNA AMPLIFICATION NEGATIVE (NEGATIVE); GC DNA AMPLIFICATION NEGATIVE (NEGATIVE)
== END ==
LOC: M SFHCLERA 18:07
PROVIDERS: ATTEND Nurse Practitioner Family
DX: N48.9 Disorder of penis, unspecified (principal)

== ENCOUNTER 2019-07-03 18:21 | Inpatient (IN) | payer OTHER ==
[~2019-07-03] VITALS: Ht 180.3 cm; Wt 72.6 kg
[~2019-07-03 18:21] MED LIST changes: -TRAZ-163 PO; +TRAZ-257 PO
[2019-07-03] MEDS ORDERED: tylenol 2 tabs (18:29)
[2019-07-03] MEDS ORDERED: GABA-1171 PO ×2 (18:35→23:06)
[2019-07-03] MEDS ORDERED: MIRT1TAB15 PO (18:35)
[2019-07-03] MEDS ORDERED: NS 1,000 ML IV ONE (19:00)
[2019-07-03 19:09] LABS: HEMATOCRIT 42.5 % (42.0-52.0); HEMOGLOBIN 14.8 g/dl (13.5-17.5); MEAN CORPUSCULAR HEMOGLOBIN 30.5 pg (27.0-33.0); MEAN CORPUSCULAR HGB CONC 34.8 g/dl (32.0-36.5); MEAN CORPUSCULAR VOLUME 87.6 fl (80.0-96.0); PLATELET COUNT, AUTOMATED 259 10^3/uL (150-450); RED BLOOD COUNT 4.85 10^6/uL (4.30-6.10); WHITE BLOOD COUNT 24.7 10^3/uL (4.0-10.0)
--- NOTE | 2019-07-03 19:18 | REPVR ---
PROCEDURE INFORMATION: Exam: CT Head Without Contrast Exam date and time: 07/03/2019 7:01 PM Age: 28 years old Clinical indication: Pain; Headache; Additional info: Severe headache TECHNIQUE: Imaging protocol: Computed tomography of the head without contrast. Radiation optimization: All CT scans at this facility use at least one of these dose optimization techniques: automated exposure control; mA and/or kV adjustment per patient size (includes targeted exams where dose is matched to clinical indication); or iterative reconstruction. COMPARISON: CT Head without contrast 12/12/2014 2:35 PM FINDINGS: Brain: No hemorrhage. Unremarkable white matter for the patient's age. No mass effect. No evolving territorial infarct. Ventricles: No ventriculomegaly. Bones/joints: Unremarkable. No acute fracture. Sinuses: Visualized sinuses are unremarkable. No fluid levels. Mastoid air cells: Visualized mastoid air cells are well aerated. Soft tissues: Unremarkable. IMPRESSION: No acute intracranial abnormality seen. Electronically signed by: Santa Weir On 07/03/2019 19:18:13 PM
[2019-07-03 19:27] LABS: ATYPICAL LYMPH 1 % (0-5); LYMPHOCYTES 13 % (16-44); MONOCYTES 4 % (0-5); NEUTROPHILS 77 % (28-66)
[2019-07-03 19:28] LABS: PLATELET ESTIMATE NORMAL (NORMAL)
[2019-07-03] MEDS ORDERED: KETOROLAC 30 MG/ML VIAL (J1885) IV ONE (19:30)
[2019-07-03] MEDS ORDERED: METOCLOPRAMIDE INJ 10MG/2ML VIAL (J2765) IV ONE (19:30)
[2019-07-03 19:46] LABS: BLOOD UREA NITROGEN 16 MG/DL (7-18); CALCIUM LEVEL 9.5 MG/DL (8.5-10.1); CARBON DIOXIDE LEVEL 26 MEQ/L (21-32); CHLORIDE LEVEL 104 MEQ/L (98-107); CREATININE FOR GFR 1.34 MG/DL (0.70-1.30); GLOMERULAR FILTRATION RATE > 60.0 (>60); GLUCOSE, FASTING 96 MG/DL (70-100); POTASSIUM SERUM 2.8 MEQ/L (3.5-5.1); SODIUM LEVEL 138 MEQ/L (136-145)
--- NOTE | 2019-07-03 20:10 | REP ---
HISTORY: Headache. The technique utilized in obtaining the radiograph has magnified the cardiac silhouette and accentuated the interstitial markings. The superior mediastinal structures are midline. The cardiac silhouette is unremarkable in size, shape, and position. The diaphragmatic surfaces of the lungs are regular, and the costophrenic angles are clear. The pulmonary hwang are clear. The imaged osseous structures are intact. IMPRESSION: There is no acute cardiopulmonary disease. Electronically Signed by Karthikeyan Hook DO 07/04/2019 12:42 P
[2019-07-03 20:18] LABS: INFLUENZA A AMPLIFICATION NEGATIVE (NEGATIVE); INFLUENZA B AMPLIFICATION NEGATIVE (NEGATIVE)
[2019-07-03] MEDS ORDERED: KCL 10MEQ/100ML SWI (KRUN) 10 MEQ in IV 1 EA IV ONE (20:30)
[2019-07-03] MEDS ORDERED: POTASSIUM CHLORIDE 10 MEQ SR TABLET PO ONE (20:30)
[2019-07-03] MEDS ORDERED: ACETAMINOPHEN 325 MG TAB PO ONE (20:30)
[2019-07-03] MEDS ORDERED: ISOVUE-370 76% 100ML VIAL (Q9967) As Ordered ONE (20:34)
--- NOTE | 2019-07-03 21:03 | REPVR ---
PROCEDURE INFORMATION: Exam: CT Angiography Chest With Contrast Exam date and time: 07/03/2019 8:47 PM Age: 28 years old Clinical indication: Shortness of breath; Additional info: SOB; Hypoxia TECHNIQUE: Imaging protocol: Computed tomographic angiography of the chest with intravenous contrast. 3D rendering: MIP and/or 3D reconstructed images were created by the technologist. Radiation optimization: All CT scans at this facility use at least one of these dose optimization techniques: automated exposure control; mA and/or kV adjustment per patient size (includes targeted exams where dose is matched to clinical indication); or iterative reconstruction. Contrast material: ISOVUE 370; Contrast volume: 75 ml; Contrast route: IV; COMPARISON: CT Chest with contrast 08/13/2013 10:16 AM FINDINGS: Pulmonary arteries: Normal. No pulmonary emboli. Aorta: Unremarkable. No aortic aneurysm. No aortic dissection. Lungs: There are ground-glass opacities diffusely throughout both lungs with a slight posterior dependent predominance. No interstitial septal thickening, fibrosis, or honeycombing. No masses are seen. Airways are clear. Pleural space: Unremarkable. No pneumothorax. No pleural effusion. Heart: Unremarkable. No cardiomegaly. No pericardial effusion. Lymph nodes: Unremarkable. No enlarged lymph nodes. Bones/joints: Unremarkable. No acute fracture. Soft tissues: Unremarkable. IMPRESSION: 1. Diffuse ground-glass opacities throughout both lungs. Differential diagnostic considerations include viral or atypical pneumonia, other interstitial pneumonia, pulmonary edema, or hypersensitivity pneumonitis among other etiologies. 2. No pulmonary embolism. Electronically signed by: Allen Dobson On 07/03/2019 21:03:00 PM
[2019-07-03 21:30] LABS: INR 1.22; PROTHROMBIN TIME 15.1 SECONDS (11.8-14.0)
[2019-07-03 21:31] LABS: C REACTIVE PROTEIN QUANTITATIV 5.51 MG/DL (0.00-0.30); CK-MB VALUE MASS 1.8 NG/ML (<3.6); CPK CREATINE PHOSPHOKINASE 282 U/L (39-308); LDH LACTATE DEHYDROGENASE 361 U/L (87-241); MAGNESIUM LEVEL 1.9 MG/DL (1.8-2.4); MB/CK RELATIVE INDEX 0.64 (< OR =4); PARTIAL THROMBOPLASTIN TIME 30.9 SECONDS (25.0-38.4); TROPONIN I < 0.02 NG/ML (< 0.10)
[2019-07-03] MEDS ORDERED: LevoFLOXacin IV 750 MG in IV 1 EA IV ONE (21:45)
[2019-07-03 22:03] LABS: ALT/SGPT 22 U/L (12-78); BILIRUBIN,DIRECT 0.3 MG/DL (0.0-0.2); BILIRUBIN,TOTAL 1.3 MG/DL (0.2-1.0); TOTAL PROTEIN 8.2 GM/DL (6.4-8.2)
[2019-07-03] MEDS: LevoFLOXacin IV 750 MG in IV 1 EA IV SCH (22:30)
[2019-07-03] MEDS ORDERED: REME15TA PO (23:06)
[2019-07-03] MEDS ORDERED: MAALOX 30 ML SUSP *UDC PO PRN (23:15)
[2019-07-03] MEDS ORDERED: ALBUTEROL 90 MCG/ACT 8GM HFA INHALER INH PRN (23:15)
[2019-07-03] MEDS ORDERED: IPRATROPIUM 0.5MG/ALBUTEROL 2.5MG INH SOL UD 3ML (DUONEB)(J7620) INH PRN (23:15)
[2019-07-03] MEDS ORDERED: MOM 30ML SUSPENSION UDC PO PRN (23:15)
--- NOTE | 2019-07-03 23:52 | HPEPDOC ---
General Date of Admission Date of Service: Jul 03, 2019 Chief Complaint The patient is a 28-year-old male admitted with a reason for visit of Difficulty Breath. Source: Patient Exam Limitations: No limitations Timing/Duration: 4-6 hours Severity: Mild Associated Symptoms: Fever, Headaches, Shortness of breath History of Present Illness 28-year-old male with past medical history of anxiety and depression presents with shortness of breath which started 6 hours prior to ER presentation. 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 He states that the bathroom that he was currently working in, was covered in mols and he had been using Fans to dry out. He was not wearing a mask or given any protective gear during this time. Over the past several weeks he was in approximately 10 bathrooms doing similar work. After work today, patient went to have a beer with his friend when he noticed that he became mildly short of breath. He also states that he had a headache and did feel somewhat warm and feverish and therefore decided to come to the ER. He also states that he may have had a seizure as he had noted that his leg and arm was shaking. However he denied any loss of consciousness, confusion, bowel incontinence, tongue biting, generalized tonic-clonic movements. She reports no history of sick contact recently or travel history. He is unsure if any of the residents in the apartment complex were quarantined for COVID19. Given his symptoms, he decided to come to the ER for further evaluation. Patient states he has been feeling generally well prior to this episode. He smokes approximately one half pack per day for the past 10 years and has a proximally 2 drinks a week. He currently lives with his and 2 children. He also occasionally smokes marijuana weekly. Patient denies any history of IV past. Upon ER evaluation, patient noted to have low-grade fever and was found to be mildly hypoxic when on room air. His saturation dropped to approximately 90% which improved with 2 L nasal cannula to approximately 95%. CT scan was done which showed impressive groundglass opacities diffusely in bilateral lung f ields. Given his presentation and requirement of submental oxygen, patient to be made for observation for possible Covid 19 rule out and management. Home Medications Scheduled Gabapentin (Gabapentin) 100 Mg Capsule, 100 MG PO TID, (Reported) Mirtazapine (Remeron) 15 Mg Tablet, 15 MG PO QHS, (Reported) Allergies Coded Allergies: sulfisoxazole (Verified Allergy, Severe, HIVES, 07/03/19) erythromycin base (Verified Allergy, Intermediate, RASH, 07/03/19) Penicillins (Verified Allergy, Unknown, 07/03/19) cefaclor (Verified Allergy, Unknown, 07/03/19) Past Medical History Medical History Depression and anxiety Surgical History Appendectomy Family History Significant Family History: Asthma, Cancer, COPD Father had COPD and asthma Mother had breast cancer Social History * Smoker: current smoker (one half pack per day for the past 10 years) Alcohol: occationally Drugs: marijuana Recent Travel/Sick Contacts: Denies: Recent travel, Recent sick contacts Psychosocial History: Anxiety, Depression 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 Lives with his family. Independent in ADLs and IADLs. Denies any history of IV drug abuse A-FIB/CHADSVASC A-FIB History Current/History of A-Fib/PAF?: No Review of Systems Constitutional: Reports: Fever, Fatigue; Denies: Chills, Malaise, Night Sweats, Weakness, Weight Loss, Lethargy Eyes: Denies: Pain, Vision change ENT: Reports: Head Aches; Denies: Ear Pain, Dysphagia, Sore Throat Skin: Denies: Rash, Lesions, Jaundice Pulmonary: Reports: Dyspnea; Denies: Cough, Pleuritic Chest Pain Cardiovascular: Denies: Chest Pain, Palpitations, Orthopnea, Edema Gastrointestinal: Reports: Diarrhea; Denies: Nausea, Vomiting, Abdominal Pain, Constipation Genitourinary: Denies: Dysuria, Frequency Hematologic: Denies: Bruising Musculoskeletal: Denies: Neck Pain, Back Pain, Joint Pain, Muscle Pain Neurological: Denies: Weakness, Numbness, Change in speech, Confusion Psych: Reports: Anxiety; Denies: Depression Physical Examination General Exam: Positive: Alert, Cooperative, No Acute Distress, Other (well-stacy earing 28-year-old male appears stated age. Speaking in full sentences E mildly anxious.) Eye Exam: Positive: PERRLA, Conjunctiva & lids normal, EOMI; Negative: Sclera icteric ENT Exam: Positive: Atraumatic, Mucous membr. moist/pink, Pharynx Normal; Negative: Pharyngeal Edema Neck Exam: Positive: Supple, +2 carotid pulse wo bruit; Negative: JVD, thyromegaly Chest Exam: Positive: Clear to auscultation, Normal air movement; Negative: Rales, Rhonchi, Wheezing Heart Exam: Positive: Rate Normal, Regular Rhythm, Normal S1, Normal S2; Negative: Gallops, Murmurs, Rubs Abdomen Exam: Positive: Normal bowel sounds, Soft; Negative: Tenderness Extremity Exam: Positive: Normal pulses; Negative: Clubbing, Edema Skin Exam: Positive: Nl turgor and temperature; Negative: Rash Neuro Exam: Positive: Normal Speech, Strength at 5/5 X4 ext, Normal Tone, Sensation Intact, Cranial Nerves 3-12 NL Psych Exam: Positive: Mental status NL, Mood NL Vital Signs Vital Signs Date Time Temp Pulse Resp B/P (MAP) Pulse Ox O2 Delivery O2 Flow Rate FiO2 07/03/19 23:00 89 132/84 (100) 96 07/03/19 20:29 99.6 07/03/19 18:45 20 Room Air Laboratory Data Labs 24H Laboratory Tests 2 07/03/19 18:58: Neutrophils (%) (Auto) , Nucleated Red Blood Cells % (auto) 0.0, Neutrophils 77H, Band Neutrophils 5, Lymphocytes (Manual) 13L, Monocytes (Manual) 4, Atypical Lymphocytes 1, Red Blood Cell Morphology NORMAL, Platelet Estimate NORMAL, Prothrombin Time 15.1H, Prothromb Time International Ratio 1.22, Activated Partial Thromboplast Time 30.9, Anion Gap 8, Glomerular Filtration Rate > 60.0, Calcium Level 9.5, Magnesium Level 1.9, Total Bilirubin 1.3H, Direct Bilirubin 0.3H, Aspartate Amino Transf (AST/SGOT) 36, Alanine Aminotransferase (ALT/SGPT) 22, Alkaline Phosphatase 68, Lactate Dehydrogenase 361H, Total Creatine Kinase 282, Creatine Kinase MB 1.8, Creatine Kinase MB Relative Index 0.64, Troponin I < 0.02, C-Reactive Protein, Quantitative 5.51H, Total Protein 8.2, Albumin 4.0, Albumin/Globulin Ratio 0.95L 07/03/19 19:40: Influenza Type A (RT-PCR) NEGATIVE, Influenza Type B (RT-PCR) NEGATIVE CBC/BMP Laboratory Tests 07/03/19 18:58 Microbiology Microbiology 07/03/19 Group A Streptococcus Screen ([facility]), Received Pending 07/03/19 Coronavirus COVID-19 PCR ([facility]), Received Pending 07/03/19 Respiratory Panel (PCR) - Final, Complete RAD Interpretation STUDY: CT Chest Rad Actions: Report Reviewed, Films Reviewed, Discussed with the pt RAD Interpretation: Other Result Comments: (Diffuse ground-glass opacities throughout both lungs. no PE) Assessment/Plan 28-year-old male presents with shortness of breath, low-grade fevers, headache. Patient noted to be hypoxic in the ER which corrected with 2 L by nasal cannula. He has an elevated white count with neutrophilic shift. CT scan reveals bilateral groundglass opacities that are diffuse. Will admit patient to observation at this time for further evaluation and management. Presumed Covid 19 patient at this time although mold exposure may also be in the differential. Plan / VTE VTE Prophylaxis Ordered?: Yes Plan Plan Shortness of breath, dyspnea on exertion, hypoxia likely secondary to presumed Covid 19 versus hypersensitivity pneumonitis from mold exposure Patient presents with acute shortness of breath, low-grade fevers. Although he does not have contact with known Covid positive patient, CT scan does appear to be impressive and patient is hypoxic. He has been exposed to mold for the past 48 hours during his workday without wearing any PPE. Groundglass opacities like this can also be found in atypical and bilateral pneumonias as well. Patient has elevated white count. Given his presentation, will place patient in isolation and treat with antibiotics at this time. Covid testing ordered by the ER and cu rrently pending. Rest of respiratory panel was negative. - Contact and droplet precautions - Continue Levaquin 750 mg IV every 24 - Follow up Covid 19 testing - Follow pro-calcitonin level - if negative, consider DC abx. - Follow up sputum sample - Follow up Legionella urine antigen as well as mycoplasma - Supplemental oxygen to maintain saturation greater than 92% - Albuterol MDI and duo nebs when necessary for severe shortness of breath - Monitor CBC daily - Hold off on steroids at this time - if HP due to mold, patient should improve given removal from exposure - Tylenol when necessary for fevers Anxiety Chronic issue. Currently patient is anxious given his current condition. - Continue gabapentin and mirtazapine as per home dose - Low Dose Ativan when necessary the patient has panic attacks Diet: Continue Current Activity: Continue Current Medications: Start Antibiotics Respiratory: Increase Oxygen Anticipated Discharge: Home VANDANA SÁNCHEZ MD Jul 03, 2019 23:52
[2019-07-04] MEDS: NS 1,000 ML IV SCH ×4 (01:08→19:41)
[2019-07-04 01:10] VITALS: BP 131/73
[2019-07-04 01:12] LABS: AMPHETAMINES LEVEL URINE NEGATIVE (NEGATIVE); BARBITURATES URINE NEGATIVE (NEGATIVE); BENZODIAZEPINES URINE NEGATIVE (NEGATIVE); CANNABINOIDS URINE POSITIVE (NEGATIVE); COCAINE METABOLITE URINE POSITIVE (NEGATIVE); METHADONE URINE NEGATIVE (NEGATIVE); OPIATES URINE NEGATIVE (NEGATIVE); PHENCYCLIDINE URINE NEGATIVE (NEGATIVE)
[2019-07-04] MEDS: ACETAMINOPHEN TAB 650MG DOSE (2X325MG) PO PRN ×4 (02:20→19:46)
[2019-07-04] MEDS: LORazepam 0.5 MG TAB PO PRN (02:20)
[2019-07-04] MEDS: GABAPENTIN 100 MG CAP PO SCH ×4 (02:30→19:41)
[2019-07-04] MEDS: MIRTAZAPINE 15 MG TAB PO SCH ×2 (02:30→19:40)
[2019-07-04 06:14] VITALS: BP 133/75
[2019-07-04 07:26] LABS: HEMATOCRIT 40.6 % (42.0-52.0); MEAN CORPUSCULAR HEMOGLOBIN 30.2 pg (27.0-33.0); MEAN CORPUSCULAR HGB CONC 34.5 g/dl (32.0-36.5); MEAN CORPUSCULAR VOLUME 87.5 fl (80.0-96.0); PLATELET COUNT, AUTOMATED 211 10^3/uL (150-450); RED BLOOD COUNT 4.64 10^6/uL (4.30-6.10); WHITE BLOOD COUNT 14.6 10^3/uL (4.0-10.0)
[2019-07-04] MEDS ORDERED: hydrOXYzine 25 MG TAB PO PRN (07:45)
[2019-07-04] MEDS: DOCUSATE SODIUM 100 MG CAP PO SCH ×2 (07:47→19:41)
[2019-07-04 07:56] LABS: ALBUMIN 3.3 GM/DL (3.2-5.2); ALT/SGPT 19 U/L (12-78); BILIRUBIN,TOTAL 1.1 MG/DL (0.2-1.0); BLOOD UREA NITROGEN 12 MG/DL (7-18); CALCIUM LEVEL 8.4 MG/DL (8.5-10.1); CARBON DIOXIDE LEVEL 24 MEQ/L (21-32); CHLORIDE LEVEL 111 MEQ/L (98-107); CREATININE FOR GFR 1.18 MG/DL (0.70-1.30); GLOMERULAR FILTRATION RATE > 60.0 (>60); GLUCOSE, FASTING 104 MG/DL (70-100); POTASSIUM SERUM 3.7 MEQ/L (3.5-5.1); SODIUM LEVEL 141 MEQ/L (136-145); TOTAL PROTEIN 6.6 GM/DL (6.4-8.2)
[2019-07-04 07:59] VITALS: BP 132/74
[2019-07-04] MEDS ORDERED: IPRATROPIUM 0.5MG/ALBUTEROL 2.5MG INH SOL UD 3ML (DUONEB)(J7620) INH PRN (09:30)
[2019-07-04] MEDS ORDERED: diphenhydrAMINE INJ 50MG/ML VIAL (J1200) IM PRN (10:00)
[2019-07-04] MEDS: NICOTINE 21MG/24HR 1 EA TRANSDERMAL TD SCH (10:16)
[2019-07-04] MEDS ORDERED: diphenhydrAMINE 25 MG CAP As Ordered ONE (10:27)
[2019-07-04] MEDS: diphenhydrAMINE 25 MG CAP PO SCH ×2 (10:29→17:30)
[2019-07-04 14:45] VITALS: BP 130/72
--- NOTE | 2019-07-04 15:29 | IPNPDOC ---
Subjective Date Seen The patient was seen on 07/04/19. Subjective Chief Complaint/HPI Anxious this morning, but claims to feel way better then yesterday. Requiring oxygen. No wheezing. No cough, mild fever this morning. Objective Physical Examination General Exam: Positive: Alert, Cooperative, No Acute Distress, Other (anxious, breathing non-labored.) Eye Exam: Positive: PERRLA; Negative: Sclera icteric ENT Exam: Positive: Atraumatic, Mucous membr. moist/pink; Negative: Pharyngeal Edema Neck Exam: Positive: Supple; Negative: JVD, thyromegaly Chest Exam: Positive: Clear to auscultation, Normal air movement; Negative: Rales, Rhonchi, Wheezing Heart Exam: Positive: Rate Normal, Regular Rhythm, Normal S1, Normal S2; Negative: Gallops, Murmurs, Rubs Abdomen Exam: Positive: Normal bowel sounds, Soft; Negative: Tenderness Extremity Exam: Positive: Normal pulses; Negative: Clubbing, Edema Skin Exam: Positive: Nl turgor and temperature; Negative: Rash Neuro Exam: Positive: Normal Speech, Cranial Nerves 3-12 NL Psych Exam: Positive: Mental status NL, Mood NL Assessment /Plan Assessment # Possible bacterial vs. Covid19 viral pneumonia with acute hypoxic respiratory failure and sepsis (fever and leukocytosis with abnormal CT chest infiltrates) # Possible Hypersensitivity pneumonitis 2/2 mold work exposure or cocaine use - Wbc trending lower, remains afebrile - Continue Levaquin 750 mg IV every 24 - Covid 19 pending - procalcitonin level pending - sputum cx, Legionella and mycoplasma pending - check serum aspergillosis - Tylenol when necessary for fevers - change to inpatient likely home in 1-2 days when afebrile and wbc normal, needs further hospitalization for IV abx, and to wean off oxygen. # Anxiety - prn ativan and benadryl # JAMES with CKD stage 1 - resolved # Polysubstance abuse - UDS cocaine + THC Plan/VTE VTE Prophylaxis Ordered?: No VTE Exclusion Mechanical Proph: Low Risk for VTE VTE Exclusion Pharmacological: At Low Risk for VTE VS, I&O, 24H, Fishbone Vital Signs/I&O Vital Signs Date Time Temp Pulse Resp B/P (MAP) Pulse Ox O2 Delivery O2 Flow Rate FiO2 07/04/19 08:00 3.0 07/04/19 07:59 99.5 95 18 132/74 (93) Nasal Cannula 07/04/19 06:14 93 I&O- Last 24 Hours up to 6 AM 07/04/19 06:00 Intake Total 2050 ml Output Total 1900 ml Balance 150 ml Laboratory Data 24H LABS Laboratory Tests 2 07/03/19 18:58: Neutrophils (%) (Auto) , Nucleated Red Blood Cells % (auto) 0.0, Neutrophils 77H, Band Neutrophils 5, Lymphocytes (Manual) 13L, Monocytes (Manual) 4, Atypical Lymphocytes 1, Red Blood Cell Morphology NORMAL, Platelet Estimate NORMAL, Prothrombin Time 15.1H, Prothromb Time International Ratio 1.22, Activated Partial Thromboplast Time 30.9, Anion Gap 8, Glomerular Filtration Rate > 60.0, Calcium Level 9.5, Magnesium Level 1.9, Total Bilirubin 1.3H, Direct Bilirubin 0.3H, Aspartate Amino Transf (AST/SGOT) 36, Alanine Aminotransferase (ALT/SGPT) 22, Alkaline Phosphatase 68, Lactate Dehydrogenase 361H, Total Creatine Kinase 282, Creatine Kinase MB 1.8, Creatine Kinase MB Relative Index 0.64, Troponin I < 0.02, C-Reactive Protein, Quantitative 5.51H, Total Protein 8.2, Albumin 4.0, Albumin/Globulin Ratio 0.95L 07/03/19 19:40: Influenza Type A (RT-PCR) NEGATIVE, Influenza Type B (RT-PCR) NEGATIVE 07/04/19 00:19: Urine Opiates Screen NEGATIVE, Urine Methadone Screen NEGATIVE, Urine Barbiturates Screen NEGATIVE, Urine Phencyclidine Screen NEGATIVE, Urine Amphetamines Screen NEGATIVE, Urine Benzodiazepines Screen NEGATIVE, Urine Cocaine Metabolite Screen POSITIVEH, Urine Cannabinoids Screen POSITIVEH 07/04/19 06:47: Nucleated Red Blood Cells % (auto) 0.0, Anion Gap 6L, Glomerular Filtration Rate > 60.0, Calcium Level 8.4L, Total Bilirubin 1.1H, Aspartate Amino Transf (AST/SGOT) 28, Alanine Aminotransferase (ALT/SGPT) 19, Alkaline Phosphatase 63, Total Protein 6.6, Albumin 3.3, Albumin/Globulin Ratio 1.00 CBC/BMP Laboratory Tests 07/03/19 18:58 07/04/19 06:47 Microbiology Microbiology 07/04/19 Blood Culture, Received Pending 07/04/19 Blood Culture, Received Pending 07/03/19 Group A Streptococcus Screen ([facility]), Received Pending 07/03/19 Coronavirus COVID-19 PCR ([facility]), Received Pending 07/03/19 Respiratory Panel (PCR) - Final, Complete MIKE ROBERTS MD Jul 04, 2019 14:34
[2019-07-04] MEDS: LevoFLOXacin IV 750 MG in IV 1 EA IV SCH (19:39)
[2019-07-04 20:00] VITALS: BP 142/88
[2019-07-04] MEDS ORDERED: diphenhydrAMINE INJ 50MG/ML VIAL (J1200) IV ONE (21:00)
[2019-07-05] MEDS: LORazepam 0.5 MG TAB PO PRN (03:53)
[2019-07-05] MEDS: ACETAMINOPHEN TAB 650MG DOSE (2X325MG) PO PRN ×3 (03:59→13:35)
[2019-07-05] MEDS: NS 1,000 ML IV SCH ×2 (04:23→09:20)
[2019-07-05 06:30] VITALS: BP 129/79
[2019-07-05] MEDS: diphenhydrAMINE 25 MG CAP PO SCH ×3 (06:35→13:35)
[2019-07-05 06:47] LABS: HEMATOCRIT 38.2 % (42.0-52.0); HEMOGLOBIN 12.9 g/dl (13.5-17.5); MEAN CORPUSCULAR HEMOGLOBIN 29.6 pg (27.0-33.0); MEAN CORPUSCULAR HGB CONC 33.8 g/dl (32.0-36.5); MEAN CORPUSCULAR VOLUME 87.6 fl (80.0-96.0); PLATELET COUNT, AUTOMATED 200 10^3/uL (150-450); RED BLOOD COUNT 4.36 10^6/uL (4.30-6.10); WHITE BLOOD COUNT 13.1 10^3/uL (4.0-10.0)
[2019-07-05 07:10] LABS: ALBUMIN 3.2 GM/DL (3.2-5.2); ALT/SGPT 19 U/L (12-78); BILIRUBIN,TOTAL 1.2 MG/DL (0.2-1.0); BLOOD UREA NITROGEN 8 MG/DL (7-18); CALCIUM LEVEL 8.4 MG/DL (8.5-10.1); CARBON DIOXIDE LEVEL 24 MEQ/L (21-32); CHLORIDE LEVEL 107 MEQ/L (98-107); CREATININE FOR GFR 1.12 MG/DL (0.70-1.30); GLOMERULAR FILTRATION RATE > 60.0 (>60); GLUCOSE, FASTING 107 MG/DL (70-100); POTASSIUM SERUM 3.8 MEQ/L (3.5-5.1); SODIUM LEVEL 138 MEQ/L (136-145); TOTAL PROTEIN 6.4 GM/DL (6.4-8.2)
--- NOTE | 2019-07-05 08:40 | ECGEPIP ---
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
[2019-07-05] MEDS: NICOTINE 21MG/24HR 1 EA TRANSDERMAL TD SCH (09:03)
[2019-07-05] MEDS: GABAPENTIN 100 MG CAP PO SCH (09:03)
[2019-07-05] MEDS: DOCUSATE SODIUM 100 MG CAP PO SCH (09:03)
[2019-07-05] MEDS ORDERED: LORazepam 0.5 MG TAB PO PRN (10:15)
--- NOTE | 2019-07-05 10:37 | IPNPDOC ---
Subjective Date Seen The patient was seen on 07/05/19. Subjective Chief Complaint/HPI Reports breathing easier, afebrile last night. Remains anxious. Off oxygen his sats > 95% on RA Objective Physical Examination General Exam: Positive: Alert, No Acute Distress Eye Exam: Positive: PERRLA; Negative: Sclera icteric ENT Exam: Positive: Mucous membr. moist/pink; Negative: Pharyngeal Edema Neck Exam: Negative: JVD, thyromegaly Chest Exam: Positive: Clear to auscultation, Normal air movement; Negative: Rales, Rhonchi, Wheezing Heart Exam: Positive: Rate Normal, Regular Rhythm, Normal S1, Normal S2; Negative: Gallops, Murmurs, Rubs Abdomen Exam: Positive: Normal bowel sounds, Soft; Negative: Tenderness Extremity Exam: Positive: Normal pulses; Negative: Clubbing, Edema Skin Exam: Positive: Nl turgor and temperature; Negative: Rash Psych Exam: Positive: Mental status NL, Anxiety Assessment /Plan Assessment # Possible bacterial vs. Covid19 viral pneumonia with acute hypoxic respiratory failure and sepsis (fever and leukocytosis with abnormal CT chest infiltrates) # Possible Hypersensitivity pneumonitis 2/2 mold work exposure or cocaine use - Febrile w/ Tmax 102.3 - Continue Levaquin 750 mg IV every 24 - Covid 19 pending - procalcitonin level 1.73, throat cx + Strep C - sputum cx, Legionella and mycoplasma pending - aspergillosis serum pending - Tylenol when necessary for fevers # Anxiety - prn ativan # JAMES with CKD stage 1 - resolved # Polysubstance abuse # tobacco use disorder - UDS cocaine + THC - nicotine patch Plan/VTE VTE Prophylaxis Ordered?: No VTE Exclusion Mechanical Proph: Low Risk for VTE VTE Exclusion Pharmacological: At Low Risk for VTE VS, I&O, 24H, Fishbone Vital Signs/I&O Vital Signs Date Time Temp Pulse Resp B/P (MAP) Pulse Ox O2 Delivery O2 Flow Rate FiO2 07/05/19 06:30 99.4 91 20 129/79 (96) 94 Nasal Cannula 3.5 I&O- Last 24 Hours up to 6 AM 07/05/19 06:00 Intake Total 150 ml Output Total 2375 ml Balance -2225 ml Laboratory Data 24H LABS Laboratory Tests 2 07/04/19 14:45: 07/05/19 06:28: Nucleated Red Blood Cells % (auto) 0.0, Anion Gap 7L, Glomerular Filtration Rate > 60.0, Calcium Level 8.4L, Total Bilirubin 1.2H, Aspartate Amino Transf (AST/SGOT) 24, Alanine Aminotransferase (ALT/SGPT) 19, Alkaline Phosphatase 71, Total Protein 6.4, Albumin 3.2, Albumin/Globulin Ratio 1.00 CBC/BMP Laboratory Tests 07/05/19 06:28 Microbiology Microbiology 07/04/19 Blood Culture - Preliminary, Resulted No growth after 24 hours . All specim... 07/04/19 Blood Culture - Preliminary, Resulted No growth after 24 hours . All specim... 07/03/19 Group A Streptococcus Screen ([facility]) - Final, Complete Streptococcus Group C 07/03/19 Coronavirus COVID-19 PCR ([facility]), Received Pending 07/03/19 Respiratory Panel (PCR) - Final, Complete MIKE ROBERTS MD Jul 05, 2019 10:37
[2019-07-05] MEDS ORDERED: VENTAER INH (12:24)
[2019-07-05] MEDS ORDERED: NICO21PAT TD (12:24)
[2019-07-05] MEDS ORDERED: LEVA750T7 PO (12:24)
--- NOTE | 2019-07-07 06:56 | DSES ---
DATE OF ADMISSION: 07/03/2019 DATE OF DISCHARGE: DISCHARGE DIAGNOSES: 1. Possible community acquired bacterial pneumonia with acute hypoxic respiratory failure and sepsis. 2. Possible hypersensitivity pneumonitis secondary to work mold exposure or cocaine use. 3. Polysubstance abuse. 4. Patient tested negative for COVID-19 virus. 5. Anxiety. 6. Acute kidney injury with chronic kidney disease stage I. 7. Tobacco abuse disorder. 8. Marijuana use. PROCEDURE DURING HOSPITALIZATION: None. CONSULTANTS ON CASE: None. DISPOSITION: Patient was discharged home in stable condition without need for home oxygen. LABS PENDING AT DISCHARGE: Mycoplasma pneumoniae IgG and IgM antibodies as well as A. Galactomannan antigen. INSTRUCTIONS: Patient was instructed to followup with his primary care provider in one week. He is to take Levaquin 750 mg daily for an additional five days. He is to abstain from smoking as well as using cocaine as well as abstaining from working until he can have a repeat CT scan which shows resolution of his pneumonitis. The patient had initially been advised to quarantine for 14 days, however after he left I did get the results of his COVID-19 testing, which was negative. I contacted his and informed her that he no longer need to quarantine as he has tested negative. RELEVANT LABS: Throat culture was positive for streptococcus group C. Coronavirus COVID-19 PCR was negative. Respiratory viral panel was negative. Blood cultures times two were negative. Urine legionella was negative. Influenza A and B was negative. Urine drug screen was positive for cocaine and cannabinoids. Sodium was 138, potassium 3.8, chloride 107, bicarb 24, creatinine 1.12, glucose 107, total bilirubin 1.2, AST 24, ALT 19, alkaline phosphatase 71, procalcitonin was 1.73. White blood cell count on admission was 24,000 and trended down to 13.1. Hemoglobin was 12.9, hematocrit was 38.2, platelet count 200,000. IMAGING STUDIES OBTAINED DURING HOSPITAL STAY: CT scan of the head, which was unremarkable. Chest x-ray which showed no acute cardiopulmonary disease. CT of the chest which showed no evidence of pulmonary embolism (PE), but did show diffuse ground glass opacities throughout both lungs. Differential diagnostic considerations includes viral or atypical pneumonia, other interstitial pneumonia, pulmonary edema, or hypersensitivity pneumonitis among other etiologies. DISCHARGE MEDICATIONS: - albuterol two puffs every 4 hours as needed for wheezing - Levaquin 750 mg by mouth daily for five days - nicotine patch one patch daily for 14 days He is to continue on his gabapentin 100 mg by mouth three times a day as well as Remeron 15 mg at bedtime. HOSPITAL COURSE: Mr. 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 He had been demoing multiple apartments which were noted to have mold in them. He had presented to the hospital on July 02 with complaints of fever, headaches as well as shortness of breath (SOB). In the ER department he was noted to have low grade fevers and to be mildly hypoxic on room air, with saturations dropping into the mid 80s to low 90s. He was placed on oxygen with improvement in his symptoms. His initial chest x-ray did not show any type of acute pathology. A subsequent CT scan of the chest was obtained which showed diffuse ground glass abnormalities. To investigate his severe headaches, CT scan was done which was negative. The patient was noted to have an elevated white blood cell count and fever, and met criteria for sepsis. He was treated with IV fluids. He was placed on empiric antibiotics. It was suspected that this was more of a hypersensitivity pneumonitis likely induced by work exposure to mold. Following hospitalization for two days, the patient actually improved significantly where he no longer required oxygen with ambulation within his room because he had been in isolation. His oxygen saturations did not drop below 94%. The patient's COVID-19 PCR came back negative. He was subsequently discharged home with prescription for antibiotics as well as albuterol inhaler with instructions to followup with his primary care provider for repeat CT scan of his chest in approximately 1-2 weeks time. A total of 30 minutes was spent including all discharge paperwork.
[2019-07-07 14:15] LABS: MYCOPLASMA PNEUMONIAE IgG 1068 U/mL (0-99); MYCOPLASMA PNEUMONIAE IgM <770 U/mL (0-769)
== END 2019-07-05 14:10 | disposition home or self-care (01) | DRG 720 ==
LOC: M ED 18:21 → M ED INP 18:22 → ENRESERV 23:22 → M MS5PR 07-04 01:02 → INTOOBSV 07-04 09:16 → OBSVTOIN 07-04 09:16
PROVIDERS: ADMIT Internal Medicine; ATTEND Internal Medicine
DX: A41.9 Sepsis, unspecified organism (principal); N17.9 Acute kidney failure, unspecified; J15.9 Unspecified bacterial pneumonia; J67.8 Hypersensitivity pneumonitis due to other organic dusts; R06.02 Shortness of breath; F41.9 Anxiety disorder, unspecified; F17.200 Nicotine dependence, unspecified, uncomplicated; F32.9 Major depressive disorder, single episode, unspecified; F14.10 Cocaine abuse, uncomplicated; N18.1 Chronic kidney disease, stage 1; F12.10 Cannabis abuse, uncomplicated; Z79.899 Other long term (current) drug therapy; Z88.0 Allergy status to penicillin; Z88.1 Allergy status to other antibiotic agents; Z88.2 Allergy status to sulfonamides; Z77.120 Contact with and (suspected) exposure to mold (toxic)

== ENCOUNTER 2019-09-18 14:33 | Emergency (ER) | payer OTHER ==
[~2019-09-18] VITALS: Ht 180.3 cm; Wt 73.9 kg
[~2019-09-18 14:33] MED LIST changes: -ATOM40CA PO; +ATOM40CA16 PO; +GABA-1171 PO; +LEVA750T7 PO; +MIRT1TAB15 PO; +NICO21PAT TD; +VENTAER INH; +tylenol 2 tabs
[2019-09-18] MEDS ORDERED: ROPI0.253 (14:41)
[2019-09-18] MEDS ORDERED: OMEP-221 (14:41)
[2019-09-18] MEDS ORDERED: MIRT1TAB15 (14:41)
[2019-09-18] MEDS ORDERED: GABA-1171 (14:41)
[2019-09-18 15:07] LABS: BASO % 0.3 % (0.0-1.0); EOS # 0.1 10^3/uL (0.0-0.5); EOS % 1.5 % (0.0-3.0); HEMATOCRIT 47.3 % (42.0-52.0); LYMPH # 2.7 10^3/uL (1.5-5.0); LYMPH % 30.4 % (24.0-44.0); MEAN CORPUSCULAR HEMOGLOBIN 29.9 pg (27.0-33.0); MEAN CORPUSCULAR HGB CONC 33.8 g/dl (32.0-36.5); MEAN CORPUSCULAR VOLUME 88.2 fl (80.0-96.0); MONO # 0.9 10^3/uL (0.0-0.8); MONO % 10.3 % (0.0-5.0); NEUTROPHILS # 5.1 10^3/uL (1.5-8.5); NEUTROPHILS % 57.2 % (36.0-66.0); PLATELET COUNT, AUTOMATED 249 10^3/uL (150-450); RED BLOOD COUNT 5.36 10^6/uL (4.30-6.10); WHITE BLOOD COUNT 8.8 10^3/uL (4.0-10.0)
[2019-09-18 15:31] LABS: BLOOD UREA NITROGEN 8 MG/DL (7-18); CREATININE FOR GFR 1.08 MG/DL (0.70-1.30); GLUCOSE, FASTING 98 MG/DL (70-100)
[2019-09-18 15:32] LABS: ALT/SGPT 22 U/L (12-78); BILIRUBIN,DIRECT 0.2 MG/DL (0.0-0.2); BILIRUBIN,TOTAL 0.8 MG/DL (0.2-1.0); CALCIUM LEVEL 8.9 MG/DL (8.5-10.1); CARBON DIOXIDE LEVEL 33 MEQ/L (21-32); CHLORIDE LEVEL 106 MEQ/L (98-107); GLOMERULAR FILTRATION RATE > 60.0 (>60); LIPASE 48 U/L (73-393); POTASSIUM SERUM 4.3 MEQ/L (3.5-5.1); SODIUM LEVEL 141 MEQ/L (136-145); TOTAL PROTEIN 7.6 GM/DL (6.4-8.2)
[2019-09-18] MEDS ORDERED: GI COCKTAIL 50ML BTL(HYOSCYAMINE/MAALOX/LIDOCAINE VISCOUS)(1:3:1) PO ONE (15:45)
--- NOTE | 2019-09-18 16:29 | REP ---
KUB ABDOMEN/PELVIS: KUB film of abdomen/pelvis performed. A few mildly dilated small bowel loops are seen in the upper abdomen. This is nonspecific and may represent a mild ileus. There is mild scattered air and fecal material throughout the colon. No abnormal calcifications are seen in the abdomen. A few phleboliths are seen in the pelvis. There are metallic clips in the right lower quadrant. Please note that an upright view is recommended in order to evaluate for free air. Electronically Signed by Kaz Canas MD 09/23/2019 06:16 P
[2019-09-18] MEDS ORDERED: SUCR1SS PO (17:23)
[2019-09-18] MEDS ORDERED: SUCRALFATE 1 GM TAB PO ONE (17:30)
--- NOTE | 2019-09-18 17:33 | REP ---
REASON FOR EXAM: Abdominal pain. Single upright view is obtained. There are a few gas-filled dilated small bowel loops in the left upper quadrant. There is no evidence of free subdiaphragmatic air. IMPRESSION: Ileus versus small bowel obstruction. Correlate clinically. When compared to the KUB obtained earlier today, the small bowel gas pattern is probably unchanged. Electronically Signed by Karthikeyan Hook DO 09/19/2019 09:21 A
[2019-09-18 17:35] VITALS: BP 131/77
== END 2019-09-18 17:36 | disposition home or self-care (01) ==
LOC: M ED 14:33
DX: K29.70 Gastritis, unspecified, without bleeding (principal); F43.10 Post-traumatic stress disorder, unspecified; F90.9 Attention-deficit hyperactivity disorder, unspecified type; R56.9 Unspecified convulsions; Z79.899 Other long term (current) drug therapy; Z88.0 Allergy status to penicillin; Z88.1 Allergy status to other antibiotic agents; Z88.2 Allergy status to sulfonamides; Z88.8 Allergy status to other drugs, medicaments and biological substances; F17.210 Nicotine dependence, cigarettes, uncomplicated

== ENCOUNTER 2019-09-20 19:46 | Emergency (ER) | payer OTHER ==
[~2019-09-20] VITALS: Ht 180.3 cm; Wt 73.6 kg
[~2019-09-20 19:46] MED LIST changes: +GABA-1171; +MIRT1TAB15; +OMEP-221; +ROPI0.253; +SUCR1SS PO
[2019-09-20] MEDS ORDERED: CARA1TAB6 (20:04)
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
[2019-09-20] MEDS ORDERED: KETOROLAC 60MG 2ML VIAL IM ONE (21:15)
[2019-09-20] MEDS ORDERED: NAPR-837 PO (21:33)
[2019-09-20 21:40] VITALS: BP 127/81
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
== END 2019-09-20 21:45 | disposition home or self-care (01) ==
LOC: M ED 19:46
DX: S39.012A Strain of muscle, fascia and tendon of lower back, initial encounter (principal); S70.01XA Contusion of right hip, initial encounter; V49.49XA Driver injured in collision with other motor vehicles in traffic accident, initial encounter; Y92.410 Unspecified street and highway as the place of occurrence of the external cause; J45.909 Unspecified asthma, uncomplicated; F41.9 Anxiety disorder, unspecified; F43.10 Post-traumatic stress disorder, unspecified; F90.9 Attention-deficit hyperactivity disorder, unspecified type; K21.9 Gastro-esophageal reflux disease without esophagitis; M41.9 Scoliosis, unspecified; Z79.899 Other long term (current) drug therapy; Z88.0 Allergy status to penicillin; Z88.1 Allergy status to other antibiotic agents; Z88.2 Allergy status to sulfonamides; Z88.8 Allergy status to other drugs, medicaments and biological substances; F17.210 Nicotine dependence, cigarettes, uncomplicated
CPT/HCPCS: 70450; 72190; 73502; 96372; 99284; J1885

== ENCOUNTER → 2019-09-30 | Outpatient (CLI) | payer MEDICAID, OTHER ==
[~2019-09-30] MED LIST changes: +CARA1TAB6; +NAPR-837 PO
== END ==
LOC: M OUTALCOH 08:20
PROVIDERS: ATTEND Psychiatry & Neurology Addiction Medicine
DX: F10.20 Alcohol dependence, uncomplicated (principal)

== ENCOUNTER → 2019-11-07 | Outpatient (RCR) | payer MEDICAID ==
[~2019-11-07] MED LIST changes: +VOLT1GEL15 TOP
== END ==
LOC: M OUTALCOH 10-20 13:55
PROVIDERS: ATTEND Psychiatry & Neurology Addiction Medicine
DX: F10.20 Alcohol dependence, uncomplicated (principal); F12.10 Cannabis abuse, uncomplicated; Z72.0 Tobacco use

== ENCOUNTER 2019-11-17 14:00 | Outpatient (RCR) | payer MEDICAID ==
[~2019-11-17 14:00] MED LIST changes: -VOLT1GEL15 TOP
== END 2019-12-08 ==
LOC: M OUTALCOH 14:00
PROVIDERS: ATTEND Psychiatry & Neurology Addiction Medicine
DX: F10.20 Alcohol dependence, uncomplicated (principal); F12.10 Cannabis abuse, uncomplicated; Z72.0 Tobacco use

== ENCOUNTER 2019-11-23 18:46 | Emergency (ER) | payer MEDICAID ==
[~2019-11-23 18:46] MED LIST changes: -VOLT1GEL15 TOP
[2019-11-23] MEDS ORDERED: KETOROLAC TROMETHAMINE 10 MG TAB As Ordered ONE (19:29)
[2019-11-23] MEDS ORDERED: KETOROLAC TROMETHAMINE 10 MG TAB ONE (19:29)
== END 2019-11-23 19:30 | disposition home or self-care (01) ==
LOC: M ED 18:46
DX: S69.92XA Unspecified injury of left wrist, hand and finger(s), initial encounter (principal); X58.XXXA Exposure to other specified factors, initial encounter; Y92.89 Other specified places as the place of occurrence of the external cause; Y93.72 Activity, wrestling; Y99.9 Unspecified external cause status; F17.200 Nicotine dependence, unspecified, uncomplicated; Z79.899 Other long term (current) drug therapy; Z88.0 Allergy status to penicillin

== ENCOUNTER → 2019-11-23 | Outpatient (CLI) | payer OTHER, MEDICAID ==
[~2019-11-23] MED LIST changes: +VOLT1GEL15 TOP
== END ==
LOC: M RAD 18:20
PROVIDERS: ATTEND Physician Assistant
DX: S69.92XA Unspecified injury of left wrist, hand and finger(s), initial encounter (principal); X58.XXXA Exposure to other specified factors, initial encounter; Y92.89 Other specified places as the place of occurrence of the external cause

== ENCOUNTER 2020-01-31 11:28 | Emergency (ER) | payer MEDICAID, OTHER ==
[~2020-01-31] VITALS: Ht 175.3 cm; Wt 77.3 kg
[2020-01-31] MEDS ORDERED: KETOROLAC 30 MG/ML 1ML VIAL IV ONE (12:00)
--- NOTE | 2020-01-31 12:01 | REP ---
INDICATION: CHEST PAIN COMPARISON: 07/03/2019 TECHNIQUE: Portable AP view of the chest FINDINGS: The mediastinum and cardiac silhouette are stable and within normal limits for portable technique. The lung hwang are clear without acute consolidation, effusion, or pneumothorax. Skeletal structures are intact. IMPRESSION: No acute cardiopulmonary process appreciated. <Electronically signed by Gilberto Hahn > 01/31/20 [id number]
[2020-01-31 12:03] LABS: BASO # 0.1 10^3/uL (0.0-0.2); BASO % 0.5 % (0.0-1.0); EOS # 0.1 10^3/uL (0.0-0.5); HEMATOCRIT 43.9 % (42.0-52.0); HEMOGLOBIN 14.7 g/dl (13.5-17.5); LYMPH # 2.4 10^3/uL (1.5-5.0); LYMPH % 23.2 % (24.0-44.0); MEAN CORPUSCULAR HEMOGLOBIN 29.2 pg (27.0-33.0); MEAN CORPUSCULAR HGB CONC 33.5 g/dl (32.0-36.5); MEAN CORPUSCULAR VOLUME 87.3 fl (80.0-96.0); MONO # 0.5 10^3/uL (0.0-0.8); MONO % 4.8 % (0.0-5.0); NEUTROPHILS # 7.3 10^3/uL (1.5-8.5); NEUTROPHILS % 70.2 % (36.0-66.0); PLATELET COUNT, AUTOMATED 296 10^3/uL (150-450); RED BLOOD COUNT 5.03 10^6/uL (4.30-6.10); WHITE BLOOD COUNT 10.4 10^3/uL (4.0-10.0)
[2020-01-31 12:24] LABS: BLOOD UREA NITROGEN 14 MG/DL (7-18); CALCIUM LEVEL 8.6 MG/DL (8.5-10.1); CARBON DIOXIDE LEVEL 25 MEQ/L (21-32); CHLORIDE LEVEL 109 MEQ/L (98-107); CREATININE FOR GFR 1.13 MG/DL (0.70-1.30); GLOMERULAR FILTRATION RATE > 60.0 (>60); GLUCOSE, FASTING 95 MG/DL (70-100); POTASSIUM SERUM 4.3 MEQ/L (3.5-5.1); SODIUM LEVEL 139 MEQ/L (136-145)
[2020-01-31] MEDS ORDERED: VOLT1GEL15 TOP (13:13)
[2020-01-31 13:15] VITALS: BP 113/58
--- NOTE | 2020-02-03 08:52 | ECGEPIP ---
[facility] - ED Test Date: 2020-01-31 Pat Name: DEVANTE RUIZ Department: Room: - Gender: Male Hvac Tech: EMELY : 1990 Requested By: Trevor De Santiago Order Number: [id number] Reading MD: Mercy Serrano Measurements Intervals Vestal Rate: 66 P: 64 AK: 170 QRS: 77 QRSD: 103 T: 63 QT: 411 QTc: 433 Interpretive Statements SINUS RHYTHM NSTTW abnormalities DECREASED RATE 07/03/19 Electronically Signed on 02-03-2020 8:51:59 EDT by Mercy Serrano
== END 2020-01-31 13:30 | disposition home or self-care (01) ==
LOC: M ED 11:28 → EDBD 11:28 → M ED 13:30
DX: M94.0 Chondrocostal junction syndrome [Tietze] (principal); K21.9 Gastro-esophageal reflux disease without esophagitis; F43.10 Post-traumatic stress disorder, unspecified; Z79.899 Other long term (current) drug therapy; Z88.0 Allergy status to penicillin; Z88.1 Allergy status to other antibiotic agents; Z88.2 Allergy status to sulfonamides; Z88.8 Allergy status to other drugs, medicaments and biological substances; F17.210 Nicotine dependence, cigarettes, uncomplicated
CPT/HCPCS: 36415; 71045; 80048; 85025; 93005; 93041; 94760; 96374; 99285; J1885

== ENCOUNTER → 2020-06-21 | Outpatient (CLI) | payer OTHER ==
[~2020-06-21] MED LIST changes: +MIRT-62 PO; -REME15TA PO; +VOLT1GEL15 TOP
--- NOTE | 2020-06-21 20:54 | REPVR ---
PROCEDURE INFORMATION: Exam: MR Lumbar Spine Without Contrast Exam date and time: 06/21/2020 7:03 PM Age: 29 years old Clinical indication: Low back pain; Additional info: Lbp TECHNIQUE: Imaging protocol: Multiplanar magnetic resonance images of the lumbar spine without intravenous contrast. COMPARISON: No relevant prior studies available. FINDINGS: Vertebrae: Marrow edema demonstrated on the posteroinferior aspect of L5 adjacent to the endplate. Spinal cord: Normal signal. No cord compression. L1-L2: No significant disc disease. No significant spinal canal stenosis. No neural foraminal stenosis. L2-L3: No significant disc disease. No significant spinal canal stenosis. No neural foraminal stenosis. L3-L4: No significant disc disease. No significant spinal canal stenosis. No neural foraminal stenosis. L4-L5: No significant disc disease. No significant spinal canal stenosis. No neural foraminal stenosis. L5-S1: Bulging annulus and central superiorly extruded disc herniation extending 7 mm superior to the inferior endplate of L5. No compression of the L5 or S1 nerve roots. Bilateral facet joint arthropathy L5-S1. Soft tissues: Unremarkable. IMPRESSION: Bulging annulus and central superiorly extruded disc herniation extending 7 mm superior to the inferior endplate of L5. No compression of the L5 or S1 nerve roots. Electronically signed by: Heriberto Lauren On 06/21/2020 20:54:30 PM
== END ==
LOC: M RAD 17:26
PROVIDERS: ATTEND Physician Assistant
DX: M54.5 Low back pain (principal)

== ENCOUNTER 2020-06-27 11:40 | Emergency (ER) | payer OTHER ==
[~2020-06-27] VITALS: Ht 180.3 cm; Wt 77.3 kg
[2020-06-27 11:46] VITALS: BP 115/65
== END 2020-06-27 12:24 | disposition home or self-care (01) ==
LOC: M ED 11:40
DX: M54.17 Radiculopathy, lumbosacral region (principal); F43.10 Post-traumatic stress disorder, unspecified; K21.9 Gastro-esophageal reflux disease without esophagitis; F17.210 Nicotine dependence, cigarettes, uncomplicated; Z79.899 Other long term (current) drug therapy; Z88.0 Allergy status to penicillin; Z88.1 Allergy status to other antibiotic agents; Z88.2 Allergy status to sulfonamides; Z88.8 Allergy status to other drugs, medicaments and biological substances

== ENCOUNTER 2020-08-30 13:16 | Emergency (ER) | payer OTHER ==
[~2020-08-30] VITALS: Ht 180.3 cm; Wt 75.9 kg
[2020-08-30] MEDS ORDERED: CARA1TAB6 PO (15:38)
[2020-08-30 15:53] VITALS: BP 112/72
== END 2020-08-30 16:46 | disposition home or self-care (01) ==
LOC: M ED 13:16
DX: K21.9 Gastro-esophageal reflux disease without esophagitis (principal); J45.909 Unspecified asthma, uncomplicated; R56.9 Unspecified convulsions; F33.9 Major depressive disorder, recurrent, unspecified; F41.9 Anxiety disorder, unspecified; F43.10 Post-traumatic stress disorder, unspecified; F90.9 Attention-deficit hyperactivity disorder, unspecified type; F10.11 Alcohol abuse, in remission; M41.9 Scoliosis, unspecified; R16.0 Hepatomegaly, not elsewhere classified; Z79.899 Other long term (current) drug therapy; Z88.0 Allergy status to penicillin; Z88.1 Allergy status to other antibiotic agents; Z88.2 Allergy status to sulfonamides; Z88.8 Allergy status to other drugs, medicaments and biological substances; F17.210 Nicotine dependence, cigarettes, uncomplicated

== ENCOUNTER → 2020-11-25 | Outpatient (CLI) | payer OTHER ==
[~2020-11-25] MED LIST changes: +CARA1TAB6 PO; -DOXY100C37 PO; +DOXY1CAP62 PO
== END ==
LOC: M LABSMTC 10:23
PROVIDERS: ATTEND Anesthesiology
DX: Z01.812 Encounter for preprocedural laboratory examination (principal); Z20.822 Contact with and (suspected) exposure to COVID-19

== ENCOUNTER 2020-11-30 11:04 | Day surgery (SDC) | payer OTHER ==
[~2020-11-30] VITALS: Ht 180.3 cm; Wt 73.0 kg
[~2020-11-30 11:04] MED LIST changes: +NS 1,000 ML IV ONE
--- OUTSIDE RECORDS SUMMARY | 2020-11-30 11:08 | CCD | Continuity of Care Document ---
Author Author Monty HORTON M.D. Organization Unknown Address [address], [address] [place] [address] Phone [phone] Care Team Providers Care Educational Technologist Name Role Phone Shahram De Jesus D.O. AUTM [phone] Geovanna Han AUTM [phone] Problems Active Problems Provider Date Allergic asthma without status asthmaticus Redd austin M.D. Onset: 11/11/2019 Social History Type Date Description Comments Sex Unknown ETOH Use Occasionally consumes alcohol ETOH Use Denies alcohol use Tobacco Use Start: Unknown Patient is a current smoker, smo kes every day Tobacco Use Start: Unknown Patient is a current smoker, smo kes every day 1ppd Allergies, Adverse Reactions, Alerts Active Allergies Reaction Severity Comments Date Pediazole 10/29/2014 Cefaclor 11/11/2019 Cefaclor 10/29/2014 Amoxicillin 11/11/2019 Erythromycin 10/29/2014 Erythromycin 11/11/2019 Medications Active Medications SIG Qnty Indications Ordering Provide r Date Bentyl 20mg Tablets K62.5 Yared Casanoav MD 01/28/2015 No Active Medications Unknown 06/2014 Gabapentin 600mg Tablets use as directed Unknown Immunizations Description No Information Available Vital Signs Date Vital Result Comment 11/11/2019 11:08am BP Systolic 126 mmHg BP Diastolic 68 mmHg Height 71 inches 5'11" Weight 169.00 lb BMI (Body Mass Index) 23.6 kg/m2 [place] Body Weight 172 lb Weight 76.658 kg BSA (Body Surface Area) 1.96 m2 01/28/2015 3:38pm BP Systolic 120 mmHg BP Diastolic 80 mmHg Height 69 inches 5'9" Weight 161.12 lb BMI (Body Mass Index) 23.8 kg/m2 [place] Body Weight 160 lb Weight 73.086 kg BSA (Body Surface Area) 1.88 m2 Results Description No Information Available Procedures Description No Information Available Medical Devices Description No Information Available Encounters Description No Information Available Assessments Description No Information Available Plan of Treatment No Information Available Functional Status Description No Information Available Mental Status Description No Information Available Referrals Refer to Dr Reason for Referral Status Appt Date Redd Horton M.D. EGD / BARETTS SYNDROME / SC IOR CLIFFORD K22.70- NOYOLA'S ESOPHAGUS WITHOUT DYSPLASIA K62.5-HEMORRHAGE OF ANUS AND RECTUM Scheduled 08/05/2020 [facility] [address], [address] [place] [address] [phone]
--- OUTSIDE RECORDS SUMMARY | 2020-11-30 11:08 | CCD | Continuity of Care Document ---
Author Author Monty POLLACK MD Organization Unknown Address [address] [place] [address], [address] [address] Phone [phone] Care Team Providers Care Assistant Scientist Name Role Phone Liss rGeer MD AUT [phone] Problems Description No Active Problems Social History Type Date Description Comments Sex Unknown ETOH Use Denies alcohol use Tobacco Use Start: Unknown Patient is a current smoker, smo kes every day Allergies, Adverse Reactions, Alerts Active Allergies Reaction Severity Comments Date Amoxicillin cl 04/06/2015 Penicillin V 11/25/2019 Medications Active Medications SIG Qnty Indications Ordering Provide r Date Gabapentin 300mg Capsules 1 tab po qhs for one week, then one tab po bid for one week then one tab po tid 90caps Steve Lyman MD 07/19/2020 History Medications Tizanidine HCL 4mg Tablets Take 1 Tablet By Mouth Three Times A Day 90tabs Steve Lyman MD - 10/26/2020 Tizanidine HCL 6mg Capsules 1 cap by mouth twice a day 60caps Steve Lyman MD 07/19/2020 - 07/19/2020 Tizanidine HCL 2mg Tablets Take 2 Tablets By Mouth Three Times A Day 120tabs Steve Lyman MD - 07/22/2020 Immunizations Description No Information Available Vital Signs Date Vital Result Comment 10/27/2020 8:14am Height 71 inches 5'11" Weight 163.50 lb BMI (Body Mass Index) 22.8 kg/m2 03/03/2020 11:09am Body Temperature 98.6 F Height 71 inches 5'11" Weight 165.00 lb BMI (Body Mass Index) 23.0 kg/m2 Results Description No Information Available Procedures Date Code Description Status 07/19/2020 34319 Office/Outpatient Established Lo w MDM 20-29 Min Completed 05/26/2020 85616 Office/Outpatient Established Mo d MDM 30-39 Min Completed Medical Devices Description No Information Available Encounters Type Date Location Provider Dx Diagnosis Office Visit 07/19/2020 12:00p [place] TIMOTHY Meraz M54.16 Radiculopathy, lumbar region M54.5 Low back pain M51.26 Other intervertebral disc di splacement, lumbar region M51.36 Other intervertebral disc de generation, lumbar region Assessments Date Code Description Provider 10/27/2020 M51.37 Other intervertebral disc degene ration, lumbosacral region Marvin Pollack MD 10/27/2020 M47.897 Other spondylosis, lumbosacral r egion Marvin Pollack MD 10/27/2020 M51.27 Other intervertebral disc displa cement, lumbosacral region Marvin Pollack MD 10/27/2020 M54.17 Radiculopathy, lumbosacral regio n Marvin Pollack MD 07/19/2020 M54.16 Radiculopathy, lumbar region [place] n TIMOTHY Toro 07/19/2020 M54.5 Low back pain TIMOTHY Meraz 07/19/2020 M51.26 Other intervertebral disc displa cement, lumbar region TIMOTHY Meraz 07/19/2020 M51.36 Other intervertebral disc degene ration, lumbar region TIMOTHY Meraz 05/26/2020 M54.5 Low back pain TIMOTHY Meraz 05/26/2020 M54.16 Radiculopathy, lumbar region [place] n TIMOTHY Toro 05/26/2020 M43.06 Spondylolysis, lumbar region Yusra n TIMOTHY Toro 05/26/2020 M51.26 Other intervertebral disc displa cement, lumbar region TIMOTHY Meraz Plan of Treatment 10/27/2020 - Marvin Pollack MD* M51.37 Other intervertebral disc degeneration, lumbosacral region* Follow up:* results of EMG with IID. * M47.897 Other spondylosis, lumbosacral region * M51.27 Other intervertebral disc displacement, lumbosacral region * M54.17 Radiculopathy, lumbosacral region Functional Status Description No Information Available Mental Status Description No Information Available Referrals Refer to Dr Reason for Referral Status Appt Date Marvin Pollack MD RECEIVED WRITTEN AUTH FOR SITS FOR DR HUERTA FOR LUMBAR REGION TO CHART NT Created [address] [facility], [address] [place] [phone] Noel Jung I, Pac EMG NO AUTH REQUIRED TO SCHEDULING NT Creat ed [address] [place] [phone] Noel Jung I, Pac O/V - M79.645 LEFT FINGERS Created [facility] [address] [address] [phone] Candi Lyman PA-C MRI PER [place] APPROVAL FOR MRI OF LS-SPINE TO BE DONE AT [facility] TO TAMY Teague NT Created [facility] [address] [address] [phone]
--- OUTSIDE RECORDS SUMMARY | 2020-11-30 11:08 | CCD | Continuity of Care Document ---
Author Author Monty HORTON M.D. Organization Unknown Address [address], [address] [place] [address] Phone [phone] Care Team Providers Care Charge Gang Weigher Name Role Phone Shahram De Jesus D.O. AUTM [phone] Geovanna Han AUTM [phone] Problems Active Problems Provider Date Allergic [...] SIG Qnty Indications Ordering Provide r Date Clenpiq 10-3.5-12mg-GM -GM/160ML S olution follow pre-procedure instructions. start day before procedure. (if not covered by insurance please fill gavilyte script). 320ml Malcom Horton M.D. 10/26/2020 Gavilyte-N With Flavor Pack 420gm Solution Rec drink the liquid as per the pre-procedur e instructions. ( fill this script only if clenpiq is not covered by insurance). 4000ml Redd Horton M.D. 10/26/[address] take 4 tablets together as per bowel preparation instructions. 4tabs Redd Chandrala, M.D. 10/26/2020 Bentyl 20mg Tablets K62.5 Yared Casanova MD 01/28/2015 Gabapentin 600mg Tablets use as directed Unknown Immunizations Description No Information Available Vital Signs Date Vital Result Comment 11/11/2019 11:08am BP Systolic 126 mmHg BP Diastolic 68 mmHg Height 71 inches 5'11" Weight 169.00 lb BMI (Body Mass Index) 23.6 kg/m2 [place] Body Weight 172 lb Weight 76.658 kg BSA (Body Surface Area) 1.96 m2 01/28/2015 3:38pm BP Systolic 120 mmHg BP Diastolic 80 mmHg Height 69 inches 5'9" Weight 161.12 lb BMI (Body Mass Index) 23.8 kg/m2 [place] Body Weight 160 lb Weight 73.086 kg BSA (Body Surface Area) 1.88 m2 Results Description No Information Available Procedures Date Code Description Status 10/14/2020 52635 Office/Outpatient Established Mo d MDM 30-39 Min Completed Medical Devices Description No Information Available Encounters Type Date Location Provider Dx Diagnosis Office Visit 10/14/2020 2:30p [facility] corina Horton M.D. K22.70 Noyola's esophagus without dysplasia K62.5 Hemorrhage of anus and rectu m Assessments Date Code Description Provider 10/14/2020 K22.70 Noyola's esophagus without dysp lasia Redd Horton M.D. 10/14/2020 K62.5 Hemorrhage of anus and rectum Min Horton M.D. Plan of Treatment Future Appointment(s):* 11/30/2020 10:50 am - Redd Horton M.D. at [facility] 10/14/2020 - Redd Horton M.D.* K22.70 Noyola's esophagus without dysplasia * K62.5 Hemorrhage of anus and rectum * * Comments:* Impression:-- Rectal bleeding -- multiple episodes, intermittent -- DDx - need to r/o Colon polyps vs hemorrhoids vs less likely Colon mass. -- Chronic acid reflux symptoms and reported history of barretts, Last EGD in [facility] is in 2014 -- Needs further evaluation. * Recommendations:* -- Educated patient on prior test results and all possible differential diagnoses. All questions answered. -- In view of chronic reflux, patient is educated about anti-reflux measures. -0 IN view of last endoscopic work up many years ago, would benefit from repeat endoscopies. -- Will schedule for labs and interval U/S abodmen. -- Return to GI clinic 2 weeks afer the above to vre post procedures. -- Follow up with PMD for routine medical care and other age appropriate health maintenance.. Functional Status Description No Information Available Mental Status Description No Information Available Referrals Refer to Dr Reason for Referral Status Appt Date Redd Horton M.D. EGD / BARETTS SYNDROME / ID IOR [place] K22.70- NOYOLA'S ESOPHAGUS WITHOUT DYSPLASIA K62.5-HEMORRHAGE OF ANUS AND RECTUM Scheduled 08/05/2020 [facility] [address], [address] [place] [address] [phone]
--- OUTSIDE RECORDS SUMMARY | 2020-11-30 11:08 | CCD | Continuity of Care Document ---
Author Author Monty POLLACK MD Organization Unknown Address [address] [place] [address], [address] [address] Phone [phone] Care Team Providers Care Mule Driver Name Role Phone Liss Greer MD AUT [phone] Problems Description No Active Problems Social History [...] Information Available Procedures Date Code Description Status 10/27/2020 06224 Office/Outpatient New Moderate M DM 45-59 Minutes Completed 10/27/2020 82402 Nerve Conduction 9-10 Studies Co mpleted 10/27/2020 93053 Needle Electromyography,Complete Five Or More Muscles Studied Completed 07/19/2020 19921 Office/Outpatient Established Lo w MDM 20-29 Min Completed 05/26/2020 20729 Office/Outpatient Established Mo d MDM 30-39 Min Completed Medical Devices Description No Information Available Encounters Type Date Location Provider Dx Diagnosis Office Visit 10/27/2020 8:00a [place] Marvin Pollack MD M51.37 Other intervertebral disc degeneration, lumbosacral region M47.897 Other spondylosis, lumbosacr al region M51.27 Other intervertebral disc di splacement, lumbosacral region M54.17 Radiculopathy, lumbosacral r egion Office Visit 07/19/2020 12[place] M54.16 Radiculopathy, lumbar region M54.5 Low back [...] Pollack MD 07/19/2020 M54.16 Radiculopathy, lumbar region [place] n TIMOTHY Toro 07/19/2020 M54.5 Low back pain TIMOTHY Meraz 07/19/2020 M51.26 Other intervertebral disc displa cement, lumbar region TIMOTHY Meraz 07/19/2020 M51.36 Other intervertebral disc degene ration, lumbar region TIMOTHY Meraz 05/26/2020 M54.5 Low back pain TIMOTHY Meraz 05/26/2020 M54.16 Radiculopathy, lumbar region [place] n TIMOTHY Toro 05/26/2020 M43.06 Spondylolysis, lumbar region [place] TIMOTHY Hull 05/26/2020 M51.26 Other intervertebral disc displa cement, lumbar region TIMOTHY Meraz Plan of Treatment Future Appointment(s):* 11/10/2020 9:00 am - TIMOTHY Meraz at [place] 10/27/2020 - Marvin Pollack MD* M51.37 Other intervertebral disc degeneration, lumbosacral region* Follow up:* results of EMG with IID. * M47.897 Other spondylosis, lumbosacral region * M51.27 Other intervertebral disc displacement, lumbosacral region * M54.17 Radiculopathy, lumbosacral region Functional Status Description No Information Available Mental Status Description No Information Available Referrals Refer to Reason for Referral Status Appt Date Marvin Pollack MD RECEIVED WRITTEN AUTH FOR SITS FOR DR HUERTA FOR LUMBAR REGION TO CHART NT Created [address] [facility], [address] [phone] Noel Jung I, Pac EMG NO AUTH REQUIRED TO SCHEDULING NT Creat ed [facility] [address] [address] [phone] Noel Jung I, Pac O/V - M79.645 LEFT FINGERS Created [address] [place] [phone] Candi Lyman PANathanC MRI PER [place] APPROVAL FOR MRI OF LS-SPINE TO BE DONE AT [facility] TO TAMY Teague NT Created [facility] [address] [address] [phone]
--- OUTSIDE RECORDS SUMMARY | 2020-11-30 11:09 | CCD ---
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 with related paraspinal areas, when performed, done with nerve conduction, amplitude and latency/velocity study; complete, five or more muscles studied, innervated by three or more nerves or four or more spinal levels (list separately in addition to the code for primary procedure). 10/27/2020 12:00:00 AM EDT MEDEN T ([facility]) Nerve Conduction 9-10 Studies 10/27/2020 12:00:00 AM E DT MEDENT ([facility]) OFFICE OUTPATIENT NEW 45 MINUTES 10/27/2020 12:00:00 A M EDT [facility] ([facility]) OFFICE OUTPATIENT VISIT 25 MINUTES 10/14/2020 12:00:00 AM EDT MEDENT ([facility], ) OFFICE OUTPATIENT VISIT 15 MINUTES 07/19/2020 12:00:00 AM EDT [facility] ([facility]) OFFICE OUTPATIENT VISIT 25 MINUTES 05/26/2020 12:00:00 AM EST [facility] ([facility]) RADEX SPINE LUMBOSACRAL MINIMUM 4 VIEWS 03/03/2020 12: 00:00 AM EST MEDENT ([facility]) RADEX FINGR MINIMUM 2 VIEWS 12/12/2019 12:00:00 AM EDT [facility] ([facility] ) RADEX FINGR MINIMUM 2 VIEWS 12/02/2019 12:00:00 AM EDT MEDENT ([facility]) CLTX DSTL PHLNGL FX FNGR/THMB W/O MANJ EA 11/25/2019 1 2:00:00 AM EDT [facility] ([facility] ) RADEX FINGR MINIMUM 2 VIEWS 11/25/2019 12:00:00 AM EDT [facility] ([facility] ) APPLICATION CAST ELBOW FINGER SHORT ARM 11/25/2019 12: 00:00 AM EDT MEDENT ([facility]) Results ID Date Data Source [id number] 09/22/2020 12:00:00 AM EDT [facility] Name Value Range Interpretation Code Description Data Lola rce(s) Supporting Document(s) SARS-CoV2 Rapid Antigen Negative [facility] This [facility] and reported by [facility]. ID Date Data Source [id number] 12/08/2019 02:03:00 [place] [address] PHONE: [phone] FAX: [phone] Name .................. : SARA DEVANTE Bond Acct Number.................. : [id number] ROOM. ................. : TR-01 Number ................... : [id number] Stay type ............. : E/R Discharge Date......... ... : 12/05/19 Admit Date ......... : 12/05/19 Admit Phys .................... : RAMON VEGA Date of ....... : 1990 Family Phys ................... : NONSTAFF Phone .................. : [phone] Age ................................ : 29 Film# .................. .:[id number] Sex ................................. : M Unsigned transcriptions are preliminary reports and do not represent a medical or legal document HAND COMPLETE-3 OR MORE VWS L [id number] COMPLETE:12/05/19 14:37 SRG [id number] Reason(s): L thumb/1st MT pain/trauma LEFT HAND X-RAY: INDICATION: Thumb, first metatarsal pain/trauma. COMPARISON: None available. FINDINGS: A fracture is identified at the base of the distal phalanx. The remaining osseous structures appear intact. IMPRESSION: Fracture at the anterior base of the distal phalanx. Examination dictated by TIMOTHY Parsons. Examination was reviewed with Rosales Brown MD, radiologist at the t [place] of this dictation. Electronically Reviewed and Signed By Rosales Brown MD , 12/08/19 14:03, KGG Transcribe Initials: HOMERO , Transcribe Date: 12/06/19 09:50, Dictation Date: Copy for: TIKI Cheng via fax Copy for: EMERGENCY DEPT via modem Copy for: 710 MED REC DISCHARGED Page 1 of 1 Name Value Range Interpretation Code Description Data Lola rce(s) Supporting Document(s) ID Date Data Source [id number] 12/05/2019 01:40:00 PM EDT [facility] 1 OrderSheet [facility] Emergency Department [address] [place] [address] Phone #: ext- [phone] 12/05/2019 13:40 [id number] Sex: M : 1990 Age: 29yWEIGHT:77.1 kg (S) HEIGHT:71 inches (S) BMI:23.7ALLERGIES: Amoxicillin, Ceclor, Erythromycin, Pediazole, PenicillinsCHIEF COMPLAINT: hand, Lt, thumb, LtDIAGNOSIS: Fracture of phalanx of fingerLAB ORDERSOrder Description Priority Entered Acknowledged InitialedDIAGNOSTIC STUDY ORDERSOrder Description Priority Entered Acknowledged InitialedHand Complete Left STAT 14:00 12/05/2019 14:07 Valentin,(Oxygen?(No)) Cristopher AGUIRRE; Erika Rodriguez Reason for Study: L thumb/1st MT pain/traumaMEDICATION/IV/DRIP/FLUID ORDERSOrder Description Priority Entered Acknowledged InitialedIbuprofen 800 mg 14:00 12/05/2019 14:58 Mary Mercedes X1 dose: 800 Cristopher AGUIRRE; R.N.mg (NOW x1)GENERAL ORDERSOrder Description Priority Entered Acknowledged Initialed[Electronically signed by Shiloh Mercedes R.N. (15:00 12/05/2019)][Electronically signed by Cristopher Esquivel (16:58 12/05/2019)][Electronically locked by Shiloh Mercedes R.N. (15:00 12/05/2019)] Name Value Range Interpretation Code Description Data Lola rce(s) Supporting Document(s) ID Date Data Source [id number] 12/05/2019 01:40:00 PM EDT [facility] 1 Medication Reconciliation Report [facility] Emergency Department [address] [place] [address] Phone #: ext- [phone] 12/05/2019 13:40 Patient: DEVANTE RUIZ Sex: M : 1990 Age: 29yWeight: 77.1 kgHeight/Length: 71 in.BMI: 23.7ALLERGIES: Amoxicillin, Ceclor, Erythromycin, Pediazole, PenicillinsThe patient's Home Medications are listed below:THE FOLLOWING MEDICATIONS NEED TO BE RECONCILED: Gabapentin Oral (600 mg) 1 tablet, dailyThe source(s) of the original Home Medication information:patientThe following Medications were given to the patient in the Emergency Department:Ibuprofen [PO] PO 1000 mg, administered: 12/05/2019 2:58:00 PMThe following Medications were prescribed to the patient:[place] 5 mg-325 mg tablet Take 1 tablet every eight hours as needed for pain for 2 days -- for thumb fx.Dispense 6 tablet. Refills: 0. Substitution permitted.Pharmacy - [facility] [phone] ; [place] [address]. . -- TIMOTHY Isals Name Value Range Interpretation Code Description Data Lola rce(s) Supporting Document(s) ID Date Data Source [id number] 12/05/2019 01:40:00 PM EDT [facility] 1 Medication Administration Record [facility] Emergency Department [address] [place] [address] Phone #: ext- [phone] 12/05/2019 13:40 Patient: DEVANTE RUIZ Sex: M : 1990 Age: 29yWeight: 77.1 kgHeight/Length: 71 inBMI: 23.7ALLERGIES: Amoxicillin, Ceclor, Erythromycin, Pediazole, Penicillins Date/Time Medication Administered Medication OrderedGiven IBUPROFEN [PO] Ibuprofen 800 mg PO X1 dose: 92089:58 12/05/2019 Dose: 1000 mg Tablets PO mg (NOW x1)Shiloh Mercedes R.N. Name Value Range Interpretation Code Description Data Lola rce(s) Supporting Document(s) ID Date Data Source [id number] 12/05/2019 01:40:00 PM EDT [facility] 1 General Instructions [facility] Emergency Department [address] [place] [address] Phone #: ext- [phone] 12/05/2019 13:40 Patient: DEVANTE RUIZ Sex: M : 1990 Age: 29yClosed nondisplaced and mildly angulated distal phalanx fracture of the left thumb (avulsion fx base 1stdistal phalanx L thumb).INSTRUCTIONSWear plaster splint (until evaluated by ortho). Do not work with hand (until evaluated by ortho). Do notwork for three days.Warnings: GENERAL WARNINGS: Return or contact your physician immediately if your conditionworsens or changes unexpectedly, if not improving as expected, or if other problems arise. Specificallyreturn if pain, vomiting, bleeding, breathing difficulty or fever.Prescription Medications:[place] 5 mg-325 mg tablet Take 1 tablet every eight hours as needed for pain for 2 days -- for thumb fx.Dispense 6 tablet. Refills: 0. Substitution permitted.Pharmacy - [facility] [phone] ; [place] [address]. .Understanding of the discharge instructions verbalized by patient. Expected course of injury, dischargeinstructions, activity level, prescriptions x1, follow-up appointment and risks and benefits of treatmentreviewed with patient and understanding verbalized.Follow-up with: [facility], , , [address] [address], ,[place], [address] Follow up in one day even if well. Call for the next available appointment. Reason for referral: evaluationand For L thumb fx. Summary of care provided to patient via paper. ADDITIONAL INFORMATIONFinger Fracture, ClosedYou have a broken finger (fracture). This causes local pain, swelling, and bruising. This injury usuallytakes about 4 to 6 weeks to heal, but can take longer in some cases. Finger injuries are often treatedwith a splint or cast, or by taping the injured finger to the next one (noble taping). This protects theinjured finger and holds the bone in position while it heals. More serious fractures may need surgery. 2 General Instructions [facility] Emergency Department [address] [place] [address] Phone #: ext- [phone] 12/05/2019 13:40 Patient: DEVANTE RUIZ Sex: M : 1990 Age: 29yIf the fingernail has been severely injured, it will probably fall off in 1 to 2 weeks. A new fingernail willusually start to grow back within a month.Home careFollow these guidelines when caring for yourself at home: Keep your hand elevated to reduce pain and swelling. When sitting or lying down keep your arm above the level of your heart. You can do this by placing your arm on a pillow that rests on your chest or on a pillow at your side. This is most important during the first 2 days (48 hours) after the injury. Put an ice pack on the injured area. Do this for 20 minutes every 1 to 2 hours the first day for pain relief. You can make an ice pack by wrapping a plastic bag of ice cubes in a thin towel. As the ice melts, be careful that the cast or splint doesn't get wet. Continue using the ice pack 3 to 4 times a day until the pain and swelling go away. Keep the cast or splint completely dry at all times. Bathe with your cast or splint out of the water. Protect it with a large plastic bag, rubber-banded at the top end. If a fiberglass cast or splint gets wet, you can dry it with a math and science division chair. If noble tape was put on and it becomes wet or dirty, change it. You may replace it with paper, plastic, or cloth tape. Cloth tape and paper tapes must be kept dry. Keep the noble tape in place for at least 4 weeks. You may use acetaminophen or ibuprofen to control pain, unless another pain medicine was prescribed. If you have chronic liver or kidney disease, talk with your healthcare provider before using these medicines. Also talk with your provider if you've had a stomach ulcer or gastrointestinal bleeding. Don't put creams or objects under the cast if you have itching.Follow-up careFollow up with your healthcare provider, or as advised. This is to make sure the bone is healing theway it should.X-rays may be taken. You will be told of any new findings that may affect your care.When to seek medical adviceCall your healthcare provider right away if any of these occur: The plaster cast or splint becomes wet or soft The cast or splint cracks 3 General Instructions [facility] Emergency Department [address] [place] [address] Phone #: ext- [phone] 12/05/2019 13:40 Patient: DEVANTE RUIZ Sex: M : 1990 Age: 29y The fiberglass cast or splint stays wet for more than 24 hours Pain or swelling gets worse Redness, warmth, swelling, drainage from the wound, or foul odor from a cast or splint Finger becomes more cold, blue, numb, or tingly You can't move your finger The skin around the cast or splint becomes red Fever of 100.4F (38C) or higher, or as directed by your healthcare provider [phone] [employer]. [address] [place] [address]. All rights reserved. This information is not intended as asubstitute for professional medical care. Always follow your healthcare professional's instructions.Closed Thumb FractureYou have a broken (fractured) thumb. This causes local pain, swelling, and often bruising. This injurywill usually take about 4 to 6 weeks or longer to heal. Thumb fractures may be treated with a splint orcast. This protects the thumb and holds the bone in place while it heals. More serious fractures mayneed surgery.If the thumbnail has been severely injured, it may fall off in 1 to 2 weeks. A new thumbnail will usuallystart to grow back within a month.Home careFollow these guidelines when caring for yourself at home: Keep your arm elevated to reduce pain and swelling. When sitting or lying down elevate your arm above the level of your heart. You can do this by placing your arm on a pillow that rests on your chest or on a pillow at your side. This is most important during the first 2 days (48 hours) after the injury. Put an ice pack on the injured area. Do this for 20 minutes every 1 to 2 hours the first day for pain relief. You can make an ice pack by wrapping a plastic bag of ice cubes in a thin towel. As the ice melts, be careful that the cast or splint doesn't get wet. Continue using the ice pack 3 to 4 times a day for the next 2 days. Then use the ice pack as needed to ease pain and swelling. If a splint was put on, leave this in place for the time advised. This will keep the bones from moving out of position. Keep the cast or splint completely dry at all times. Bathe with your cast or splint out of the 4 General Instructions [facility] Emergency Department [address] [place] [address] Phone #: ext- [phone] 12/05/2019 13:40 Patient: DEVANTE RUIZ Sex: M : 1990 Age: 29y water. Protect it with a large plastic bag, rubber-banded at the top end. If a fiberglass cast or splint gets wet, you can dry it with a math and science division chair. You may use acetaminophen or ibuprofen to control pain, unless another pain medicine was prescribed. If you have chronic liver or kidney disease, talk with your healthcare provider before using these medicines. Also talk with your provider if you've had a stomach ulcer or gastrointestinal bleeding. Don't put creams or objects under the cast if you have itching.Follow-up careFollow up with your healthcare provider in 1 week, or as advised. This is to make sure the bone ishealing the way it should. Talk with your provider about when it is safe to return to sports or work.X-rays may be taken. You will be told of any new findings that may affect your care.When to seek medical adviceCall your healthcare provider right away if any of these occur: The cast or splint cracks The plaster cast or splint becomes wet or soft The fiberglass cast or splint stays wet for more than 24 hours Bad odor from the cast or wound fluid stains the cast Pain or swelling gets worse Redness or warmth in the hand Fingers or hand become cold, blue, numb, or tingly You can't move your hand or fingers Skin around cast or splint becomes red Fever of 100.4F (38C) or higher, or as directed by your healthcare provider [phone] [employer]. [address] [place] [address]. All rights reserved. This information is not intended as asubstitute for professional medical care. Always follow your healthcare professional's instructions.Splints and CastsSplints and casts are used to help support and protect many bone and soft tissue injuries. They keepan injured area from moving. 5 General Instructions [facility] Emergency Department [address] [place] [address] Phone #: ext- [phone] 12/05/2019 13:40 Patient: DEVANTE RUIZ Sex: M : 1990 Age: 29yBoth splints and casts can help fix broken bones and other injuries or conditions by: Increasing blood supply to the injured area Limiting movement to help decrease pain Keeping the area stable to help prevent further injury Decreasing swelling or muscle spasmSplints don't fully enclose an injured area. This makes them ideal to use for many acute or suddeninjuries where swelling is likely to occur. This includes acute fractures or sprains. Splints help to easepain, protect fractures, and keep an injured area from moving before any orthopedic treatment isdone.Casts fully enclose an injured area in either plaster or fiberglass. Because of this, they are better ableto keep the injured area still and hold it in place. But casts can also have more problems.For the best results, both casts and splints are mainly used only for a short time. That's becausekeeping an area still for too long can cause problems such as joint stiffness and long-lasting (chronic)pain. If you are put in a splint or c ast, you must be watched closely to be sure you recover correctly.There are many different kinds of splints and casts. Your healthcare provider will decide which is bestfor you. This will depend on the area of your body that is being treated. It will also depend on thestage of your injury, as well as how severe and how stable it is. Each type of splint and cast is bestsuited for certain conditions. There are also different ways of applying splints and casts.Home care Follow your healthcare provider's instructions when using the splint or cast. Always ask when the splint or cast must be worn. Always ask when the splint or cast can be removed. Check the splint or cast each day, and as needed, for any loose objects. Check the splint or cast for defects such as nicks or tears. Follow the automation engineer's or provider's instructions on how to clean the splint or cast. It may have fabric areas that can be washed. If the splint or cast has straps, tighten the straps if they get loose. The straps should feel firm and secure, but not too tight. The splint or cast should feel comfortable. Your toes should wiggle freely. The provider may also use an elastic bandage. Follow the provider's instructions on how to use the elastic bandage. Always ask when to use the elastic bandage with, or without, the splint or cast. Always ask when the elastic bandage needs to be worn. Always ask when the elastic bandage needs to be removed. 6 General Instructions [facility] Emergency Department [address] [place] [address] Phone #: [phone] 12/05/2019 13:40 Patient: DEVANTE RUIZ Sex: M : 1990 Age: 29y Check how the injured area is healing. Always check the skin around the injury for irritation or damage caused by the splint or cast. Call your provider if you notice any problems or have any concerns. If you have any questions on how to use the splint or cast, contact your provider.Follow-up careFollow up as advised with your healthcare provider. Depending on the injury, you may need to see anorthopedic or bone doctor. You may also need physical therapy to further check or treat your injury orcondition.When to seek medical adviceCall your healthcare provider right away if any of these occur: You have more pain, swelling, or instability when wearing the splint or cast. Your injured area has skin that changes color (to red, blue, or purple), sores, blisters, infection, or irritation. The injured region feels cool to the touch. Or you have a numb and tingly feeling when wearing the splint or cast. The splint or cast does not fit correctly. You can't put weight on the injured area when wearing the splint or cast if you are allowed to do so. You have questions about using the splint or cast. The splint or cast gets wet. [phone] [employer]. [address] [place] [address]. All rights reserved. This information is not intended as asubstitute for professional medical care. Always follow your healthcare professional's instructions. You have been given the following additional information: Fracture, Finger, Closed Fracture, Thumb Splints and Casts Do not work with hand (until evaluated by ortho). Do not work for three days. 7 General Instructions [facility] Emergency Department [address] [place] [address] Phone #: ext- [phone] 12/05/2019 13:40 Patient: DEVANTE RUIZ Sex: M : 1990 Age: 29y(Electronically signed by TIMOTHY Islas 12/05/2019 16:58) Name Value Range Interpretation Code Description Data Lola rce(s) Supporting Document(s) ID Date Data Source [id number] 12/05/2019 01:40:00 PM EDT [facility] 1 Clinical Report - Nurses [facility] Emergency Department [address] [place] [address] Phone #: ext- [phone] 12/05/2019 13:40 Patient: DEVANTE RUIZ Sex: M : 1990 Age: 29yTRIAGEArrived by private vehicle, and unaccompanied.Triage time: late entry - 13:40 12/05/2019. Acuity: LEVEL 4.Chief Complaint: LEFT UPPER EXTREMITY PAIN. Location of symptoms- left thumb.Alert. No acute distress.Injury occurred. Onset. (2 days ago). 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 Sepsis Screen negative. No suspected or confirmed signs ofinfection present. (14:06 12/05/2019). --14:12/05/19 Erika Hanson R.N.14:02 12/05/19. BP: 106/69. MAP: 81. HR: 83. RR: 18. O2 saturation: 100% on room air. Temp: 98.3 F(oral). Pain level now: 10/16. --14:06 12/05/19 Erika Hanson R.N.Weight: 77.1 kg stated. Height/Length: 71 inches Per Patient. BMI: 23.7. --14:12/05/19 Erika Hanson R.N.MedicationsGabapentin Oral (Tablet 600 mg) 1 tablet, daily. --14:12/05/19 Erika Hanson R.N.AllergiesAmoxicillin.(rash)Ceclor.(rash)Erythromycin.(rash)Pediazole.(rash)P enicillins.(rash) --14:12/05/19 Erika Hanson R.N.Medication/allergy information source: the patient. --14:12/05/19 Erika Hanson R.N.ADDITIONAL SURGERIES:Adenoidectomy.Appendectomy.Hernia Repair.Tonsillectomy. --14:05 12/05/19 Erika Hanson R.N. 2 Clinical Report - Nurses [facility] Emergency Department [address] [place] [address] Phone #: ext- [phone] 12/05/2019 13:40 Patient: DEVANTE RUIZ Sex: M : 1990 Age: 29y History PAST MEDICAL HX: Tetanus status: up-to-date. Immunizations: up-to-date. SOCIAL HX: Current every day heavy tobacco smoker (cigarette)- less than 1 pack per day. No alcohol use or drug use. He was offered HIV testing but declined. Patient education was provided. He was offered hepatitis C testing but declined. Patient education was provided. He has not traveled outside the [place] Infectious disease exposure: No infectious disease exposure. Patient is not a known carrier of tuberculosis, hepatitis, HIV, MRSA or VRE. Patient is not a known carrier of CRE. SELF HARM ASSESSMENT: Self harm assessment was performed. The patient answered "no" to the question(s) "Do you have thoughts of harming or killing yourself?" and "Do you have a plan for harming or killing yourself?". ABUSE ASSESSMENT: Abuse assessment. The patient had positive responses to the question(s) "Do you feel safe in your home?". Abuse denied. No suspicion of abuse. No report of abuse. NUTRITIONAL RISK ASSESSMENT: The nutritional risk assessment revealed no deficiencies. FUNCTIONAL ASSESSMENT: Functional assessment: no impairments noted. LEARNING NEEDS ASSESSMENT: The learning needs assessment revealed no barriers. FALL RISK ASSESSMENT: Fall risk assessment completed. No risk factors identified. SKIN INTEGRITY ASSESSMENT: Skin integrity risk assessment completed. No skin integrity risk identified. --14:12/05/19 Erika Hanson R.N. Interventions Identification band on patient. --14:12/05/19 Erika Hanson R.N.PHYSICAL ASSESSMENTAmbulatory to room.GENERAL / NEURO / PSYCH: Oriented X 4. Alert. Appears in no acute distress.EXTREMITIES: Left thumb: tenderness and swelling of the distal phalanx. Limited movement secondary topain (diminished flexion and extension).SKIN: Skin intact. Skin is warm and dry. --14:12/05/19 Erika Hanson R.N.NURSING PROGRESS NOTESReassurance given. Three patient identifiers checked. Call light placed in reach. Side rails up x 2. Bedplaced in lowest position. Brakes of bed on. Patient ready for evaluation- PA notified. --14:12/05/19Erika Hanson R.N. Patient walked to radiology with oral surgery technician. --14:12/05/19 Erika Hanson R.N. 3 Clinical Report - Nurses [facility] Emergency Department [address] [place] [address] Phone #: ext- [phone] 12/05/2019 13:40 [id number] Sex: M : 1990 Age: 29y 14:58 12/05/2019 Ibuprofen PO Tablets 1000 mg given. Allergies verified and confirmed 5 rights. Information reviewed with patient including reason for taking this medication and signs of allergic reaction. --14:58 12/05/19 Shiloh Mercedes R.N.DISPOSITION / DISCHARGE Condition at departure: improved. No learning barriers present. Discharge instructions provided and reviewed with the patient. Reviewed medication(s) side effects, precautions, dosing and course information. Prescription(s) given to the patient and sent electronically to pharmacy. --14:59 12/05/19 Shiloh Mercedes R.N. 14:59 12/05/19. BP: 120/65. MAP: 83. HR: 84. RR: 18. O2 saturation: 99%. Temp: 98.2 F (oral). Pain level now: 05/19. --14:59 12/05/19 Shiloh Mercedes R.N. Written instructions provided in Wol[place]. The patient was discharged home and accompanied by cab. He left ambulatory and via private vehicle. Driving (cab). --15:00 12/05/19 Shiloh Mercedes R.N. Departure time: 15:00 12/05/2019. --15:00 12/05/19 Shiloh Mercedes R.N.Locked/Released at 12/05/2019 15:00 by Shiloh Mercedes R.N. Name Value Range Interpretation Code Description Data Lola rce(s) Supporting Document(s) ID Date Data Source [id number] 0001 12/05/2019 01:40:00 PM EDT [facility] 1 Clinical Report - Physicians/Mid Levels [facility] Emergency Department [address] [place] [address] Phone #: ext [phone] 12/05/2019 13:40 [id number] Sex: M : 1990 Age: 29y Time Seen: 13:50 12/05/2019. Arrived- By private vehicle. Historian- patient. Disposition decision: 14:48 12/05/2019.HISTORY OF PRESENT ILLNESS Chief Complaint: Injury to the left hand and thumb. The injury happened several days ago. Occurred at home. ( Wrestling with friend several days ago and injured L hand (1st MT) and L thumb.). Patient is experiencing moderate pain. No injury to the head or neck or other injury.REVIEW OF SYSTEMSThe patient has had swelling of the left thumb (mild). No tingling, numbness, weakness, foreign body orskin laceration.PAST HISTORYSee nurses notes. Problems: Back Injury. Other Disease. Muscle Strain, Upper Extremity. Nephropathy. Ulcerative Colitis. Vomiting. Swallowed Foreign Body. Puncture Wound. Sprain. Lumbar Strain. Back Pain. Bronchitis. Abdominal Pain. Anxiety Reaction. Depression. Diarrhea. Contusion. C olitis. Constipation. Proctitis. Post-Op Complications. Additional Surgeries: Adenoidectomy. 2 Clinical Report - Physicians/Mid Levels [facility] Emergency Department [address] [place] [address] Phone #: ext- [phone] 12/05/2019 13:40 ---- [id number] Sex: M : 1990 Age: 29y Appendectomy. Hernia Repair. Tonsillectomy.ADDITIONAL NOTESThe nursing notes have been reviewed with agreement regarding the chief complaint, HPI, ROS, PMH andpatient medications and allergies.PHYSICAL EXAMVital Signs: 12/05/2019 14:02 BP: 106/69. MAP: 81. HR: 83. RR: 18. O2 saturation: 100% on room air.Temp: 98.3 F. Pain level now: 10/16. Have been reviewed as normal and appear to be correct. Bloodpressure normal. Mean arterial pressure- normal. Heart rate normal. Respiratory rate normal.Temperature normal. Oxygen saturation normal.Appearance: Alert. Oriented X3. No acute distress.Extremities: Thenar eminence, right hand: moderate tenderness and mild swelling. No ecchymosis ordeformity. Right thumb: moderate tenderness and mild swelling of the dorsal aspect, MCP joint andproximal phalanx. Limited movement secondary to pain (diminished flexion). Neurovascular intact distally.No ecchymosis, foreign body or deformity. No wrist injury. Hand and wrist exam otherwise negative.Extremities otherwise negative.Neuro, Vascular and Tendons: Vascular status intact. Sensation intact. Motor intact. Tendon functionintact.LABS, X-RAYS, AND EKGLt UE Digits X-ray: (avulsion fx base DIP L thumb). Views: AP, lateral and oblique. Technique: good.The X-rays were independently viewed by me and interpreted by the radiologist and contemporaneously byme.PROGRESS AND PROCEDURESSplint Application: Time: 14:26 12/05/2019. Thumb spica and sling splint applied to upper extremity.Reassessed extremity following splint application. Neurovascular intact. Splinting applied by PA with directsupervision by me. Disposition: Discharged home in good and improved condition. Discharge decision based on the following: patient's condition is improved; patient is ambulatory; patient is active; patient's pain is controlled; patient's exam is improved; minimally abnormal test results; improving condition on repeat evaluation; social support is adequate; transportation is available; follow-up is available; clinical impression is consistent with outpatient treatment.CLINICAL IMPRESSION Closed nondisplaced and mildly angulated distal phalanx fracture of the left thumb (avulsion fx base 1st distal phalanx L thumb). 3 Clinical Report - Physicians/Mid Levels [facility] Emergency Department [address] [place] [address] Phone #: ext- [phone] 12/05/2019 13:40 Patient: DEVANTE RUIZ [facility]#: [id number] Sex: M : 1990 Age: 29yINSTRUCTIONS Wear plaster splint (until evaluated by ortho). Do not work with hand (until evaluated by ortho). Do not work for three days. Warnings: GENERAL WARNINGS: Return or contact your physician immediately if your condition worsens or changes unexpectedly, if not improving as expected, or if other problems arise. Specifically return if pain, vomiting, bleeding, breathing difficulty or fever. Prescription Medications: [place] 5 mg-325 mg tablet Take 1 tablet every eight hours as needed for pain for 2 days -- for thumb fx. Dispense 6 tablet. Refills: 0. Substitution permitted. Pharmacy - [facility] [id number] ; [place] [address]. . Understanding of the discharge instructions verbalized by patient. Expected course of injury, discharge instructions, activity level, prescriptions x1, follow-up appointment and risks and benefits of treatment reviewed with patient and understanding verbalized. Follow-up with: [facility], , , [address] [place] [address], , [place], [address] Follow up in one day even if well. Call for the next available appointment. Reason for referral: evaluation and For L thumb fx. Summary of care provided to patient via paper.(Electronically signed by TIMOTHY Islas 12/05/2019 16:58) Name Value Range Interpretation Code Description Data Lola rce(s) Supporting Document(s) Procedure Social History Code Duration Value Status Description Data Source(s ) Smoking 07/13/2020 12:00:00 AM EDT Current Smoker completed Curre nt Smoker eCW1 ([facility]) Smoking 07/13/2020 12:00:00 AM EDT Current Smoker completed Curre nt Smoker eCW1 ([facility]) Smoking 07/13/2020 12:00:00 AM EDT Current Smoker completed Curre nt Smoker eCW1 ([facility]) Smoking 07/13/2020 12:00:00 AM EDT Current Smoker completed Curre nt Smoker eCW1 ([facility]) Smoking 02/10/2020 12:00:00 AM EST Current Smoker completed Curre nt Smoker eCW1 ([facility]) Smoking 02/10/2020 12:00:00 AM EST Current Smoker completed Curre nt Smoker eCW1 ([facility]) Smoking 02/10/2020 12:00:00 AM EST Current Smoker completed Curre nt Smoker eCW1 ([facility]) Smoking 02/10/2020 12:00:00 AM EST Current Smoker completed Curre nt Smoker eCW1 ([facility]) Smoking 02/02/2020 12:00:00 AM EDT Current Smoker completed Curre nt Smoker eCW1 ([facility]) Smoking 02/02/2020 12:00:00 AM EDT Current Smoker completed Curre nt Smoker eCW1 ([facility]) Vital Signs ID Date Data Source UNK Name Value Range Interpretation Code Description Data Source(s) Body weight 163.50 [lb_av] 163.50 [lb_av] MEDEN T ([facility]) Body height 71 [in_i] 71 [in_i] MEDENT ([facility]) 5'11" Body mass index (BMI) [Ratio] 22.8 kg/m2 22.8 k g/m2 MEDENT ([facility]) Body weight 163.6 [lb_av] 163.6 [lb_av] eCW1 ([facility]) Body height 69 [in_i] 69 [in_i] eCW1 ([facility]) Body mass index (BMI) [Ratio] 24.16 kg/m2 24.16 kg/m2 W1 ([facility]) Heart rate 111 /min 111 /min eCW1 ([facility]) Respiratory rate 17 /min 17 /min eCW1 ([facility]) Body temperature 96.9 [degF] 96.9 [degF] eCW1 ( [facility]) Systolic blood pressure 135 mm[Hg] 135 mm[Hg] e CW1 ([facility]) Diastolic blood pressure 92 mm[Hg] 92 mm[Hg] eCW1 ([facility]) Systolic blood pressure 117 mm[Hg] 117 mm[Hg] M EDENT ([facility]) Diastolic blood pressure 70 mm[Hg] 70 mm[Hg] [facility]) Heart rate 85 /min 85 /min MEDENT ([facility]) Respiratory rate 19 /min 19 /min MEDENT ( [facility]) Oxygen saturation in Arterial blood by Pulse oximetry 96 % 96 % MEDENT ([facility]) Body temperature 97.8 [degF] 97.8 [degF] [facility]) Body weight 160.00 [lb_av] 160.00 [lb_av] MEDEN T ([facility]) Body height 71 [in_i] 71 [in_i] MEDENT ([facility]) 5'11" Body mass index (BMI) [Ratio] 22.3 kg/m2 22.3 k g/m2 [facility] ([facility]) Body height 71 [in_i] 71 [in_i] MEDENT ([facility] 5'11" Body temperature 98.6 [degF] 98.6 [degF] [facility] Body weight 165.00 [lb_av] 165.00 [lb_av] MEDEN T ([facility] ) Body mass index (BMI) [Ratio] 23.0 kg/m2 23.0 k g/m2 MEDENT ([facility] ) Body weight 165 [lb_av] 165 [lb_av] eCW1 ([facility]) Body height 69 [in_i] 69 [in_i] eCW1 ([facility]) Body mass index (BMI) [Ratio] 24.36 kg/m2 24.36 kg/m2 [facility] ([facility]) Heart rate 89 /min 89 /min eCW1 ([facility]) Respiratory rate 16 /min 16 /min eCW1 ([facility]) Body temperature 98.4 [degF] 98.4 [degF] eCW1 ( [facility]) Systolic blood pressure 149 mm[Hg] 149 mm[Hg] e CW1 ([facility]) Diastolic blood pressure 86 mm[Hg] 86 mm[Hg] eCW1 ([facility]) Body weight 165 [lb_av] 165 [lb_av] eCW1 ([facility]) Body height 69 [in_i] 69 [in_i] eCW1 ([facility]) Body mass index (BMI) [Ratio] 24.36 kg/m2 24.36 kg/m2 eCW1 ([facility]) Heart rate 78 /min 78 /min eCW1 ([facility]) Respiratory rate 16 /min 16 /min eCW1 ([facility]) Body temperature 98.6 [degF] 98.6 [degF] eCW1 ( [facility]) Systolic blood pressure 136 mm[Hg] 136 mm[Hg] e CW1 ([facility]) Diastolic blood pressure 81 mm[Hg] 81 mm[Hg] eCW1 ([facility]) Systolic blood pressure 126 mm[Hg] 126 mm[Hg] M EDYANDY ([facility], ) Diastolic blood pressure 68 mm[Hg] 68 mm[Hg] [facility], ) Body height 71 [in_i] 71 [in_i] [facility] ([facility], ) 5'11" Body weight 169.00 [lb_av] 169.00 [lb_av] MEDEN T ([facility], ) Body mass index (BMI) [Ratio] 23.6 kg/m2 23.6 k g/m2 [facility], ) [place] body weight 172 [lb_av] 172 [lb_av] MEDEN T ([facility], ) Body weight 76.658 kg 76.658 kg [facility] ([facility], ) Body surface area Derived from formula 1.96 m2 1.96 m2 [facility] ([facility], ) Body height 71 [in_i] 71 [in_i] [facility] ([facility]) 5'11" Body weight 169.00 [lb_av] 169.00 [lb_av] [facility] Body mass index (BMI) [Ratio] 23.6 kg/m2 23.6 k g/m2 [facility] ([facility]) [place] body weight 172 [lb_av] 172 [lb_av] MEDEN T ([facility]) Body weight 76.658 kg 76.658 kg [facility] ([facility]) Body surface area Derived from formula 1.96 m2 1.96 m2 [facility] ([facility]) Patient Treatment Plan of Care Planned Activity Planned Date Details Description Data Source (s) Divalproex Sodium 250 MG Delayed Release Oral Tablet 12:00:00 AM EDT eCW1 ([facility]) Divalproex Sodium 250 MG Delayed Release Oral Tablet 12:00:00 AM EDT eCW1 ([facility]) Divalproex Sodium 250 MG Delayed Release Oral Tablet 12:00:00 AM EDT eCW1 ([facility]) Divalproex Sodium 250 MG Delayed Release Oral Tablet 12:00:00 AM EDT eCW1 ([facility]) gabapentin 300 MG Oral Capsule 02/10/2020 12:00:00 AM EST eCW1 ([facility]) gabapentin 300 MG Oral Capsule 02/10/2020 12:00:00 AM EST eCW1 ([facility]) gabapentin 300 MG Oral Capsule 02/10/2020 12:00:00 AM EST eCW1 ([facility]) gabapentin 300 MG Oral Capsule 02/10/2020 12:00:00 AM EST eCW1 ([facility]) gabapentin 300 MG Oral Capsule 02/10/2020 12:00:00 AM EST eCW1 ([facility]) Mirtazapine 30 MG Oral Tablet 02/10/2020 12:00:00 AM EST eCW1 ([facility]) Mirtazapine 30 MG Oral Tablet 02/10/2020 12:00:00 AM EST eCW1 ([facility]) gabapentin 300 MG Oral Capsule 02/10/2020 12:00:00 AM EST eCW1 ([facility]) Mirtazapine 30 MG Oral Tablet 02/10/2020 12:00:00 AM EST eCW1 ([facility]) gabapentin 300 MG Oral Capsule 02/10/2020 12:00:00 AM EST eCW1 ([facility]) Mirtazapine 30 MG Oral Tablet 02/10/2020 12:00:00 AM EST eCW1 ([facility]) gabapentin 300 MG Oral Capsule 02/10/2020 12:00:00 AM EST eCW1 ([facility]) Lidocaine 40 MG/ML Topical Cream 02/02/2020 12:00:00 AM EDT eCW1 ([facility]) Lidocaine 40 MG/ML Topical Cream 02/02/2020 12:00:00 AM EDT eCW1 ([facility])
[2020-11-30] MEDS ORDERED: fentaNYL 100 MCG/2 ML INJECTION (J3010) As Ordered ONE (12:13)
[2020-11-30] MEDS ORDERED: propofoL 200 MG/20 ML VIAL As Ordered ONE ×2 (12:13→12:50)
[2020-11-30] MEDS ORDERED: LIDOCAINE 2% 100MG/5ML SDV (FOR ANES.) As Ordered ONE (12:13)
--- NOTE | 2020-11-30 13:14 | ROOR ---
Patient Name: Monty Alexander Procedure Date: 11/30/2020 12:19 PM Date of : 1990 Age: 30 Room: [facility] Gender: Male Note Status: Finalized Procedure: Upper GI endoscopy Indications: Epigastric abdominal pain, Heartburn, Follow-up of Nichole's esophagus Providers: Redd Florian MD Referring MD: 1. NO/Unknown PCP 1. NO/Unknown PCP, Admin. Requesting Provider: Medicines: Monitored Anesthesia Care Complications: No immediate complications. Procedure: Pre-Anesthesia Assessment: - Prior to the procedure, a History and Physical was performed, and patient medications and allergies were reviewed. The patient is competent. The risks and benefits of the procedure and the sedation options and risks were discussed with the patient. All questions were answered and informed consent was obtained. Patient identification and proposed procedure were verified by the physician, the nurse and the anesthesiologist in the procedure room. Mental Status Examination: alert and oriented. Airway Examination: normal oropharyngeal airway and neck mobility. Respiratory Examination: clear to auscultation. CV Examination: normal. Prophylactic Antibiotics: The patient does not require prophylactic antibiotics. Prior Anticoagulants: The patient has taken no previous anticoagulant or antiplatelet agents. ASA Grade Assessment: II - A patient with mild systemic disease. After reviewing the risks and benefits, the patient was deemed in satisfactory condition to undergo the procedure. The anesthesia plan was to use monitored anesthesia care (MAC). Immediately prior to administration of medications, the patient was re-assessed for adequacy to receive sedatives. The heart rate, respiratory rate, oxygen saturations, blood pressure, adequacy of pulmonary ventilation, and response to care were monitored throughout the procedure. The physical status of the patient was re-assessed after the procedure. The Endoscope was introduced through the mouth, and advanced to the second part of duodenum. The upper GI endoscopy was accomplished without difficulty. The patient tolerated the procedure well. Findings: The Z-line was regular and was found 41 cm from the incisors. Scattered mild inflammation characterized by erythema, friability and granularity was found in the gastric antrum. Biopsies were taken with a cold forceps for Helicobacter pylori testing. Verification of patient identification for the specimen was done by the physician and nurse using the patient's name, date and medical record number. Estimated blood loss was minimal. The duodenal bulb and second portion of the duodenum were normal. Biopsies for histology were taken with a cold forceps for evaluation of celiac disease. Impression: - Z-line regular, 41 cm from the incisors. - Gastritis. Biopsied. - Normal duodenal bulb and second portion of the duodenum. Biopsied. Recommendation: - Patient has a contact number available for emergencies. The signs and symptoms of potential delayed complications were discussed with the patient. Return to normal activities tomorrow. Written discharge instructions were provided to the patient. - High fiber diet. - Continue present medications. - Follow an antireflux regimen. - Await pathology results. - Telephone GI clinic for pathology results in 2 weeks. - Telephone GI clinic for pathology results if persistent symptoms or new symptoms. - Return to primary care physician. Procedure Code(s): --- Professional --- 80980, Esophagogastroduodenoscopy, flexible, transoral; with biopsy, single or multiple Diagnosis Code(s): --- Professional --- K22.70, Nichole's esophagus without dysplasia K29.70, Gastritis, unspecified, without bleeding R10.13, Epigastric pain R12, Heartburn CPT copyright 2019 [employer]. All rights reserved. The codes documented in this report are preliminary and upon team facilitator review may be revised to meet current compliance requirements. Redd Florian MD Redd Florian MD 11/30/2020 1:14:06 PM Electronically signed by Redd Florian MD Number of Addenda: 0 Note Initiated On: 11/30/2020 12:19 PM Estimated Blood Loss: Estimated blood loss was minimal.
--- NOTE | 2020-11-30 13:17 | ROOR ---
Patient Name: Monty Alexander Procedure Date: 11/30/2020 12:20 PM Date of : 1990 Age: 30 Room: [facility] Gender: Male Note Status: Finalized Procedure: Colonoscopy Indications: Screening for colorectal malignant neoplasm Providers: Redd Florian MD Referring MD: 1. NO/Unknown PCP 1. NO/Unknown PCP, Admin. Requesting Provider: Medicines: Monitored Anesthesia Care Complications: No immediate complications. Procedure: Pre-Anesthesia Assessment: - Prior to the procedure, a History and Physical was performed, and patient medications and allergies were reviewed. The patient is competent. The risks and benefits of the procedure and the sedation options and risks were discussed with the patient. All questions were answered and informed consent was obtained. Patient identification and proposed procedure were verified by the physician, the nurse and the anesthesiologist in the procedure room. Mental Status Examination: alert and oriented. Airway Examination: normal oropharyngeal airway and neck mobility. Respiratory Examination: clear to auscultation. CV Examination: normal. Prophylactic Antibiotics: The patient does not require prophylactic antibiotics. Prior Anticoagulants: The patient has taken no previous anticoagulant or antiplatelet agents. ASA Grade Assessment: II - A patient with mild systemic disease. After reviewing the risks and benefits, the patient was deemed in satisfactory condition to undergo the procedure. The anesthesia plan was to use monitored anesthesia care (MAC). Immediately prior to administration of medications, the patient was re-assessed for adequacy to receive sedatives. The heart rate, respiratory rate, oxygen saturations, blood pressure, adequacy of pulmonary ventilation, and response to care were monitored throughout the procedure. The physical status of the patient was re-assessed after the procedure. The Colonoscope was introduced through the anus and advanced to the terminal ileum, with identification of the appendiceal orifice and IC valve. The colonoscopy was performed without difficulty. The patient tolerated the procedure well. The quality of the bowel preparation was adequate to identify polyps 6 mm and larger in size and fair. The terminal ileum, ileocecal valve, appendiceal orifice, and rectum were photographed. Scope insertion time was 2 minutes. Scope withdrawal time was 9 minutes. The total duration of the procedure was 12 minutes. Findings: The perianal and digital rectal examinations were normal. The terminal ileum appeared normal. A 10 mm polyp was found in the descending colon. The polyp was sessile. The polyp was removed with a cold snare. Resection and retrieval were complete. Verification of patient identification for the specimen was done by the physician and nurse using the patient's name, date and medical record number. Estimated blood loss was minimal. Non-bleeding external and internal hemorrhoids were found during retroflexion. The hemorrhoids were large. Impression: - Preparation of the colon was fair. - The examined portion of the ileum was normal. - One 10 mm polyp in the descending colon, removed with a cold snare. Resected and retrieved. - Non-bleeding external and internal hemorrhoids. Recommendation: - Patient has a contact number available for emergencies. The signs and symptoms of potential delayed complications were discussed with the patient. Return to normal activities tomorrow. Written discharge instructions were provided to the patient. - High fiber diet. - Continue present medications. - Preparation H suppository: Insert rectally daily for 7 days. - Await pathology results. - Telephone GI clinic for pathology results in 2 weeks. - Return to GI clinic if persistent symptoms or new symptoms. - Return to primary care physician. Procedure Code(s): --- Professional --- 84751, Colonoscopy, flexible; with removal of tumor(s), polyp(s), or other lesion(s) by snare technique Diagnosis Code(s): --- Professional --- Z12.11, Encounter for screening for malignant neoplasm of colon K64.8, Other hemorrhoids K63.5, Polyp of colon CPT copyright 2019 [employer]. All rights reserved. The codes documented in this report are preliminary and upon track layer review may be revised to meet current compliance requirements. Redd Florian MD Redd Florian MD 11/30/2020 1:16:34 PM Electronically signed by Redd Florian MD Number of Addenda: 0 Note Initiated On: 11/30/2020 12:20 PM Estimated Blood Loss: Estimated blood loss: none.
[2020-11-30 13:41] VITALS: BP 106/60
== END 2020-11-30 13:41 | disposition home or self-care (01) ==
LOC: M OPP 11:04
PROVIDERS: ATTEND Internal Medicine Gastroenterology
DX: Z12.11 Encounter for screening for malignant neoplasm of colon (principal); D12.4 Benign neoplasm of descending colon; K64.8 Other hemorrhoids; K22.70 Barrett's esophagus without dysplasia; K29.70 Gastritis, unspecified, without bleeding; R10.13 Epigastric pain; K92.2 Gastrointestinal hemorrhage, unspecified; Z79.899 Other long term (current) drug therapy; Z88.0 Allergy status to penicillin; Z88.1 Allergy status to other antibiotic agents; Z88.2 Allergy status to sulfonamides; Z88.8 Allergy status to other drugs, medicaments and biological substances; F17.210 Nicotine dependence, cigarettes, uncomplicated
CPT/HCPCS: 43239; 45385; 88305; J3010

== ENCOUNTER 2020-12-27 14:44 | Emergency (ER) | payer OTHER ==
[~2020-12-27] VITALS: Ht 180.3 cm; Wt 72.0 kg
[2020-12-27 14:44] VITALS: BP 146/81
[~2020-12-27 14:44] MED LIST changes: -NS 1,000 ML IV ONE
== END 2020-12-27 18:58 | disposition left against medical advice (07) ==
LOC: M ED 14:44
DX: Z53.29 Procedure and treatment not carried out because of patient's decision for other reasons (principal)

== ENCOUNTER → 2021-02-22 | Outpatient (REF) | payer OTHER ==
[~2021-02-22] MED LIST changes: +DOXY-443 PO; -DOXY1CAP62 PO
[2021-02-23 00:01] LABS: INFLUENZA A AMPLIFICATION NEGATIVE (NEGATIVE); INFLUENZA B AMPLIFICATION NEGATIVE (NEGATIVE)
== END ==
LOC: M LAB REF 21:20
PROVIDERS: ATTEND Physician Assistant Medical
DX: J10.1 Influenza due to other identified influenza virus with other respiratory manifestations (principal)

== ENCOUNTER 2021-02-27 14:03 | Emergency (ER) | payer OTHER ==
[~2021-02-27] VITALS: Ht 180.3 cm; Wt 75.0 kg
--- OUTSIDE RECORDS SUMMARY | 2021-02-27 14:09 | CCD | Continuity of Care Document ---
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 Name Role Phone Liss Greer MD [facility] [phone] Problems Description No Active Problems Social History Type Date Description Comments Sex Unknown ETOH Use Denies alcohol use Tobacco Use Start: Unknown Patient is a current smoker, smo kes every day Allergies, Adverse Reactions, Alerts Active Allergies Criticality Reaction | Severity Comments Date Amoxicillin Unable to assess criticality cl 04/06/2015 Penicillin V Unable to assess criticality 11/25/2019 Medications Active Medications SIG Qnty Indications Ordering Provide r Date Gabapentin 300mg Capsules 1 tab po Am and 2tab PO QHS 90caproland Lyman MD 07/19/2020 History Medications Tizanidine HCL [...] Information Available Procedures Date Code Description Status 12/16/2020 48879 Office/Outpatient Established Lo w MDM 20-29 Min Completed 10/27/2020 29441 Office/Outpatient New Moderate M DM 45-59 Minutes Completed 10/27/2020 99583 Nerve Conduction 9-10 Studies Co mpleted 10/27/2020 30093 Needle Electromyography,Complete Five Or More Muscles Studied Completed 07/19/2020 38830 Office/Outpatient Established Lo w MDM 20-29 Min Completed Medical Devices Description No Information Available Encounters Type Date Location Provider Dx Diagnosis Office Visit 12/16/2020 11:00a [place] TIMOTHY Meraz M51.37 Other intervertebral disc degeneration, lumbosacral region M47.897 Other spondylosis, lumbosacr al region M51.27 Other intervertebral disc di splacement, lumbosacral region M54.17 Radiculopathy, lumbosacral r egion Office Visit 10/27/2020 8:00a [place] Marvin Carbajal MD M51.37 Other intervertebral disc degeneration, lumbosacral region M47.897 Other spondylosis, lumbosacr al region M51.27 Other intervertebral disc di splacement, lumbosacral region M54.17 Radiculopathy, lumbosacral r egion Office Visit 07/19/2020 12:00p [place] Henao M54.16 Radiculopathy, lumbar region M54.5 Low back pain M51.26 Other intervertebral disc di splacement, lumbar region M51.36 Other intervertebral disc de generation, lumbar region Assessments Date Code Description Provider 12/16/2020 M51.37 Other intervertebral disc degene ration, lumbosacral region TIMOTHY Meraz 12/16/2020 M47.897 Other spondylosis, lumbosacral r egion TIMOTHY Meraz 12/16/2020 M51.27 Other intervertebral disc displa cement, lumbosacral region TIMOTHY Meraz 12/16/2020 M54.17 Radiculopathy, lumbosacral regio n TIMOTHY Meraz 10/27/2020 M51.37 Other intervertebral disc degene ration, lumbosacral region Marvin Carbajal MD 10/27/2020 M47.897 Other spondylosis, lumbosacral r egion Marvin Carbajal MD 10/27/2020 M51.27 Other intervertebral disc displa cement, lumbosacral region Marvin Carbajal MD 10/27/2020 M54.17 Radiculopathy, lumbosacral regio n Marvin Carbajal MD 07/19/2020 M54.16 Radiculopathy, lumbar region TIMOTHY Evans 07/19/2020 M54.5 Low back pain TIMOTHY Meraz 07/19/2020 M51.26 Other intervertebral disc displa cement, lumbar region TIMOTHY Meraz 07/19/2020 M51.36 Other intervertebral disc degene ration, lumbar region TIMOTHY Meraz Plan of Treatment No Information Available Functional Status Description No Information Available Mental Status Description No Information Available Referrals Refer to Dr Reason for Referral Status Appt Date Marvin Carbajal MD RECEIVED WRITTEN AUTH FOR SITS FOR DR HUERTA FOR LUMBAR REGION TO CHART NT Created [facility], [address] [place] [address] [phone] Noel Jung I, Pac EMG NO AUTH REQUIRED TO SCHEDULING NT Creat ed [facility] [place] [address] [phone] Noel Jung I, Pac O/V - M79.645 LEFT FINGERS Created [address] [place] [address] [address] [place] [address] [phone]
--- OUTSIDE RECORDS SUMMARY | 2021-02-27 14:09 | CCD | Continuity of Care Document ---
Author Author Monty JUNG [place] Organization Unknown Address [address] [place] [address], [facility] [address] [place] [address] Phone [phone] Care Team Providers Care Security Operations Analyst Name Role Phone Liss Greer MD [facility] [phone] Problems Description No Active Problems Social History [...] Available Procedures Date Code Description Status 12/16/2020 91708 Office/Outpatient Established Lo w MDM 20-29 Min Completed 10/27/2020 89184 Office/Outpatient New Moderate M DM 45-59 Minutes Completed 10/27/2020 54980 Nerve Conduction 9-10 Studies Co mpleted 10/27/2020 26806 Needle Electromyography,Complete Five Or More Muscles Studied Completed 07/19/2020 20367 Office/Outpatient Established Lo w MDM 20-29 Min Completed Medical Devices Description No Information Available Encounters Type Date Location Provider Dx Diagnosis Office Visit 12/16/2020 11:00a [place] TIMOTHY Meraz M51.37 Other intervertebral disc degeneration, lumbosacral region M47.897 Other spondylosis, lumbosacr al region M51.27 Other intervertebral disc di splacement, lumbosacral region M54.17 Radiculopathy, lumbosacral r egion Office Visit 10/27/2020 8:00a [place] Marvin Carbajal MD M51.37 Other intervertebral disc degeneration, lumbosacral region M47.897 Other spondylosis, lumbosacr al region M51.27 Other intervertebral disc di splacement, lumbosacral region M54.17 Radiculopathy, lumbosacral r egion Office Visit 07/19/2020 12:00p [place]yt[place]TIM[place]HY Henao M54.16 Radiculopathy, lumbar region M54.5 Low [...] FOR LUMBAR REGION TO CHART NT Created [facility], [address] [place] [address] [phone] Noel Jung I, Pac EMG NO AUTH REQUIRED TO SCHEDULING NT Creat ed [facility] [place] [address] [phone] Noel Jung I, Pac O/V - M79.645 LEFT FINGERS Created [address] [place] [address] [address] [place] [address] [phone]
--- OUTSIDE RECORDS SUMMARY | 2021-02-27 14:09 | CCD | Continuity of Care Document ---
Author Author Monty HORTON M.D. Organization Unknown Address [address], [address] [place] [address] Phone [phone] Care Team Providers Care Hat Lining Blocker Name Role Phone Shahram De Jesus D.O. AUTM [phone] Geovanna Han AUTM Problems Active Problems Provider Date Allergic asthma [...] 1ppd Allergies, Adverse Reactions, Alerts Active Allergies Criticality Reaction | Severity Comments Date Pediazole Unable to assess criticality 10/29/2014 Cefaclor Unable to assess criticality 11/11/2019 Cefaclor Unable to assess criticality 10/29/2014 Amoxicillin Unable to assess criticality 11/11/2019 Erythromycin Unable to assess criticality 10/29/2014 Erythromycin Unable to assess criticality 11/11/2019 Medications Active Medications SIG Qnty Indications [...] as per bowel preparation instructions. 4tabs Redd Horton M.D. 10/26/2020 Bentyl 20mg Tablets K62.5 Yared Casanova MD 01/28/2015 Gabapentin 600mg Tablets use as directed Unknown Immunizations Description No Information Available Vital Signs Date Vital Result Comment 11/11/2019 11:08am BP Systolic 126 mmHg BP Diastolic 68 mmHg Height 71 inches 5'11" Weight 169.00 lb BMI (Body Mass Index) 23.6 kg/m2 [place] Body Weight 172 lb Weight 76.658 kg BSA (Body Surface Area) 1.96 m2 01/28/2015 3:38pm BP Systolic 120 mmHg BP Diastolic 80 mmHg Height 69 inches 5'9" Weight 161.12 lb BMI (Body Mass Index) 23.8 kg/m2 [place] Body Weight 160 lb Weight 73.086 kg BSA (Body Surface Area) 1.88 m2 Results Test Acquired Date Facility Test Result H/L Range Note Laboratory test finding 11/30/2020 [facility] [address] [place], [place] [id number] [phone] Pathology Request For Service (SEE NOTE) 1 1 FINAL DIAGNOSIS A - Small bowel, biopsy: Small intestinal mucosa with preserved villous architecture. B - Gastric biopsy: Minute fragments of superficial gastric mucosa. No significant inflammatory change is noted. C - Descending colon, polyp, polypectomy: Adenomatous polyp/tubular adenoma. 12/01/2020 - 09 CLINICAL DIAGNOSIS Dyspepsia, reflux, history of Noyola's and rectal bleeding 12/01/2020 - 0941 GROSS DIAGNOSIS A - Received in formalin labeled "small bowel biopsy for celiac disease" is a 0.3 x 0.2 x 0.2 cm aggregate of two mucosal fragments. All in one. B - Received in formalin labeled "gastric biopsy, R/O H. pylori" is a 0.2 x 0.2 x 0.1 cm aggregate of mucosal fragments. All in one. C - Received in formalin labeled "descending colon polyp" is a 0.4 x 0.3 x 0.2 cm portion of mucosa. All in one. - 12/01/2020 - 07 Signed Lux Gonsalez MD 12/01/2020 1303 Procedures Date Code Description Status 11/30/2020 04848 Colonoscopy W/ Poly Completed 11/30/2020 18947 Endoscopy Upper GI Biopsy Comple robbie 10/14/2020 51836 Office/Outpatient Established Mo d MDM 30-39 Min Completed Medical Devices Description No Information Available Encounters Type Date Location Provider Dx Diagnosis Office Visit 10/14/2020 2:30p [facility] ctice Redd Horton M.D. 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 11/30/2020 D12.4 Benign neoplasm of descending co beth Redd Horton M.D. 11/30/2020 K64.8 Other hemorrhoids Redd ladd M.D. 11/30/2020 R12 Heartburn Redd Garcia ala, M.D. 11/30/2020 R10.13 Epigastric pain Redd Garcia ala, M.D. 11/30/2020 K22.70 Noyola's esophagus without dysp irene Horton M.D. 11/30/2020 K29.70 Gastritis, unspecified, without bleeding Redd Horton M.D. 10/14/2020 K22.70 Noyola's esophagus without dysp irene Horton M.D. 10/14/2020 K62.5 Hemorrhage of anus and rectum Min Horton M.D. 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 -- Chronic acid reflux symptoms and reported history of barretts, Last EGD in [facility] is in 2014 -- Needs further evaluation. [...] Horton M.D. EGD / BARETTS SYNDROME / IN [facility] [place] K22.70- NOYOLA'S ESOPHAGUS WITHOUT DYSPLASIA K62.5-HEMORRHAGE OF ANUS AND RECTUM Scheduled 08/05/2020 [facility] [address], [address] [place] [address] [phone]
--- OUTSIDE RECORDS SUMMARY | 2021-02-27 14:09 | CCD ---
Author Author [facility] Organization [facility] Address Unknown Phone Unavailable Care Team Providers Care Campus Police Officer Name Role Phone Geovanna Han Unavailable PROBLEMS Type Condition ICD9-CM Code PUD34-SM Code Onset Dates Condition S tatus W/U Status Risk SNOMED Code Notes Problem Dysthymic disorder F34.1 Active confirmed 7 6122576 Problem Anxiety F41.9 Active confirmed 97864140 Problem Bipolar 1 disorder F31.9 Active confirmed 3 03325641 Problem Nichole''s esophagus without dysplasia K22.70 A ctive confirmed 952525541 Problem Moderate episode of recurrent major depressive disorder F33.1 Active confirmed 32038270 Problem PTSD (post-traumatic stress disorder) F43.10 Ac tive confirmed 70571869 Problem Dysthymia F34.1 Active confirmed 46345649 Problem Tobacco use disorder F17.200 Active confirmed 830327775 Problem Restless leg G25.81 Active confirmed 7155519 8 Problem Primary insomnia F51.01 Active confirmed 397 2004 Problem Lumbago with sciatica, left side M54.42 Active confirmed 063256844 Problem Other chronic pain G89.29 Active confirmed 8 8485696 ALLERGIES Allergen (clinical drug ingredient) Drug/Non Drug Allergy do cumented on EMR Reaction Allergy Type Onset Date Status ceclor Hives Drug Allergy Active Penicillin (For Allergies Use Only) Hives Drug Allerg y Active amoxicillin Amoxicillin(NDC Code:[address]-91) Hives Drug Aller gy Active erythromycin Erythromycin(ND Code:[address]-83) Hives Drug All ergy Active ENCOUNTERS from 1990 to 2021-02-18 Encounter Location Date Provider Diagnosis [facility] [address] [facility] [phone] [place] [address] Feb, Geovanna Han Adjustment insomnia F51.02 ; Bipolar 1 disorder F31.9 and Lumbago with sciatica, left side M54.42 IMMUNIZATIONS Vaccine Route Administration Date Status Influenza 18 yrs & older Flublok IM Intramuscular Feb 06, 2019 Administered Pneumococcal Adult 0.5mL Pneumovax 23 IM Intramuscular Feb 06 019 Administered TDAP 0.5mL (Boostrix) IM Intramuscular Feb 06, 2019 Administe red Influenza 6mo & up Fluzone IM Intramuscular Mar 05, 2018 Admi nistered Influenza 6mo & up Fluzone Unknown June 12, 2017 Refus ed Influenza 6mo & up Fluzone Unknown July 29, 2016 Other s Influenza 6mo & up Fluzone Unknown Jan 26, 2015 Refus ed SOCIAL HISTORY Tobacco Use: Social History Observation Description Date Details (start date - stop date) Current Smoker Sex Assigned At : Social History Observation Description Sex Assigned At Unknown Education: Question Answer Notes Level of Education: High School Audit Question Answer Notes Total Score: 2 Interpretation: Alcohol Education Language: Question Answer Notes Languages spoken: Togolese Christian: Question Answer Notes Christian 33 None Sexual Hx: Question Answer Notes Had sex in the last 12 months (vaginal, oral, or anal)? Yes Have you ever had an STD? No with Women only Use protection? No Drug and Alcohol Question Answer Notes Total Score: 0 Interpretation: No problems reported Alcohol Screening: Question Answer Notes Did you have a drink containing alcohol in the past year? No Points 0 Interpretation Negative Tobacco Use: Question Answer Notes Are you a: current smoker Smoking Cessation Information Given 02/14/2021 Patient counseled on the dangers of tobacco use and urged to quit: 02/14/2021 How many cigarettes a day do you smoke? 6-10 Are you interested in quitting? Ready to quit Counseled the patient on tobacco use, cessation provided 11/2020 REASON FOR REFERRAL from 1990 to 2021-02-18 Reason 30yo male patient, existing pt, requires referral for ongoing care, pls continue to eval/tx accordingly Diagnosis 1 Lumbago with sciatica, left side (M54.42) Referral Organization [facility] Dee Referring Provider First Name Geovanna Referring Provider Last Name Guille Referring Provider Specialty Family Medicine Referred Provider Kraig Wan Referred Provider Specialty Orthopedic Surgery Referral Priority Routine General Notes Sugey Radford 02/16/2021 10 :55:11 AM > Vicky Marsh 02/17/2021 9:04:30 AM > [facility] referral ID: [id number] VITAL SIGNS Weight 161.8 lbs Feb, Weight-kg 73.39 kg Feb, Height 69 in Feb, BMI 23.89 kg/m2 Feb, Heart Rate 75 /min Feb, Respiratory Rate 17 /min Feb, Temperature 98.3 degrees Fahrenheit Feb, Oximetry 98 Feb, Blood pressure systolic 124 mm Hg Feb, Blood pressure diastolic 62 mm Hg Feb, MEDICATIONS Medication SIG (Take, Route, Frequency, Duration) Notes Start Da te End Date Status traMADol HCl 50 MG 1 tablet as needed Orally every 6 hours as needed for 3 days Apr, Not-Taking Gabapentin 300 MG 1 capsule Orally three times daily for 3 0 day(s) bridge to pain clinic Feb, Active Carafate 1 GM 1 tablet on an empty stomach Orally Twic e a day for 30 day(s) unsure of dosage - PRN Active Lidocaine 4 % 1 application as needed Externally Twice a day f or 10 day(s) Jan, Not-Taking Mirtazapine 30 MG 1 tablet at bedtime Orally Once a day for 30 d ay(s) Feb, Not-Taking Omeprazole 40 MG 1 capsule 30 minutes before morning meal Orally Once a day for 90 days August, Not-Taking Divalproex Sodium 250 MG 1 tablet Orally Twice a day for 30 day( s) Jul, Not-Taking rOPINIRole HCl 0.25 MG as directed Orally as direct ed MDD 2 tablets for 30 day(s) start one tablet before bed for first 3 days, if no relief can increase to two tablets before bed August, Not-Taking Doxycycline Hyclate 100 MG 1 capsule Orally Twice a day for 10 d ay(s) Feb, Not-Taking Tylenol Extra Strength 500 MG 1 tablet as needed Orally every 6 hrs Active Mirtazapine 15 MG 1 tablet at bedtime Orally Once a day for 30 d ays Jan, Active Gabapentin 100 MG TAKE 2 CAPSULES BY MOUTH THREE TIMES DAILY for 90 Not-Taking PROCEDURES No Information RESULTS No Results REASON FOR VISIT mental health MEDICAL (GENERAL) HISTORY Type Description Date Medical History Scoliosis Medical History Hematochezia -has appt with Dr. Casanova 02/10 for colonoscopy Medical History ADHD Medical History Concern for narcotic abuse Medical History Born premature Surgical History Abdominal surgery at Surgical History Appendicitis 10/2014 Surgical History Tonsillectomy Hospitalization History Appendicitis-spent one night Hospitalization History [facility] - pneumonia 06/2019 Goals Section No Information Health Concerns No Information MEDICAL EQUIPMENT No Information MENTAL STATUS No Information FUNCTIONAL STATUS No Information ASSESSMENTS Encounter Date Diagnosis Assessment Notes Treatment Notes Treatm ent Clinical Notes Feb, Adjustment insomnia (ICD-10 - F51.02) Agreed to refill at this time. Discussed possibility of BH changing and/or adding medications for insomnia. Feb, Bipolar 1 disorder (ICD-10 - F31.9) Attempted depakote, did not tolerate well. In light of recent BH visit, will defer to specialist for treatment. Encouraged pt to keep appointment and follow as directed. Feb, Lumbago with sciatica, left side (ICD-10 - M54.4 2) Requesting update referral to [facility], following w/ Noel Jung PA-C. PLAN OF TREATMENT Medication Medication Name Sig Start Date Stop Date Mirtazapine 15 MG 1 tablet at bedtime Orally Once a day fo r 30 days Jan, Treatment Notes Assessment Notes Clinical Notes Adjustment insomnia Agreed to refill at this time. Discussed possibility of BH changing and/or adding medications for insomnia. Bipolar 1 disorder Attempted depakote, did not tolerate well. In light of recent BH visit, will defer to specialist for treatment. Encouraged pt to keep appointment and follow as directed. Lumbago with sciatica, left side Request ing update referral to [facility], following prasanth/ Noel Jung PA-C. Referrals Referral Date Details 30yo male patient, existing pt, requires referral for ongoing care, pls continue to eval/tx accordingly, Kraig Wan Next Appt Details per reg FU schedule Reason: Insurance Providers Payer Name Payer Address Payer Phone Insured Name Patient Relati onship to Insured Coverage Start Date Coverage End Date [facility] [address] [facility] [id number] [phone] DEVANTE RUIZ self
--- OUTSIDE RECORDS SUMMARY | 2021-02-27 14:09 | CCD ---
Author Author [facility] Organization [facility] Address Unknown Phone Unavailable Care Team Providers Care Accounts Payable Clerk Name Role Phone Geovanna Han Unavailable PROBLEMS Type Condition ICD9-CM Code [id number] Code Onset Dates Condition S tatus W/U Status Risk SNOMED Code Notes Problem Dysthymic disorder F34.1 Active confirmed 7 5667667 Problem Anxiety F41.9 Active confirmed 68567427 Problem Bipolar 1 disorder F31.9 Active confirmed 3 77297173 Problem Nichole''s esophagus without dysplasia K22.70 A ctive confirmed 934863568 Problem Moderate episode of recurrent major depressive disorder F33.1 Active confirmed 86424692 Problem PTSD (post-traumatic stress disorder) F43.10 Ac tive confirmed 10636324 Problem Dysthymia F34.1 Active confirmed 50106568 Problem Tobacco use disorder F17.200 Active confirmed 703231602 Problem Restless leg G25.81 Active confirmed 1641244 8 Problem Primary insomnia F51.01 Active confirmed 397 2004 Problem Lumbago with sciatica, left side M54.42 Active confirmed 123727983 Problem Other chronic pain G89.29 Active confirmed 8 7044212 ALLERGIES Allergen (clinical drug ingredient) Drug/Non Drug Allergy do cumented on EMR Reaction Allergy Type Onset Date Status ceclor Hives Drug Allergy Active Penicillin (For Allergies Use Only) Hives Drug Allerg y Active amoxicillin Amoxicillin(NDC Code:[address]-63) Hives Drug Aller gy Active erythromycin Erythromycin(ND Code:[address]-07) Hives Drug All ergy Active ENCOUNTERS from 1990 to 2021-02-15 Encounter Location Date Provider Diagnosis [address] [phone] [place] [address] Feb, Geovanna Han IMMUNIZATIONS Vaccine Route Administration Date Status Influenza [...] Education Language: Question Answer Notes Languages spoken: Cymraes Jehovah'S Witness: Question Answer Notes Jehovah'S Witness 33 None Sexual Hx: Question Answer Notes [...] use, cessation provided 11/2020 REASON FOR REFERRAL No Information VITAL SIGNS No information MEDICATIONS Medication SIG (Take, Route, Frequency, Duration) [...] No Information FUNCTIONAL STATUS No Information ASSESSMENTS No Information PLAN OF TREATMENT Medication Medication Name Sig Start Date Stop Date Mirtazapine 15 MG 1 tablet at bedtime Orally Once a day fo r 30 days Jan, Insurance Providers Payer Name Payer Address Payer Phone Insured Name Patient Relati onship to Insured Coverage Start Date Coverage End Date [facility] [address] [facility] [phone] DEVANTE RUIZ self
--- OUTSIDE RECORDS SUMMARY | 2021-02-27 14:09 | CCD ---
Author Author [facility] Organization [facility] Address Unknown Phone Unavailable Care Team Providers Care Infant Toddler Lead Teacher Name Role Phone Geovanna Han Unavailable PROBLEMS Type Condition ICD9-CM Code [id number] Code Onset Dates Condition S tatus W/U Status Risk SNOMED Code Notes Problem Dysthymic disorder F34.1 Active confirmed 7 4083473 Problem Anxiety F41.9 Active confirmed 19680262 Problem Bipolar 1 disorder F31.9 Active confirmed 3 70044722 Problem Nichole''s esophagus without dysplasia K22.70 A ctive confirmed 591568992 Problem Moderate episode of recurrent major depressive disorder F33.1 Active confirmed 53010677 Problem PTSD (post-traumatic stress disorder) F43.10 Ac tive confirmed 82044847 Problem Dysthymia F34.1 Active confirmed 12847819 Problem Tobacco use disorder F17.200 Active confirmed 478748600 Problem Restless leg G25.81 Active confirmed 6885900 8 Problem Primary insomnia F51.01 Active confirmed 397 2004 Problem Lumbago with sciatica, left side M54.42 Active confirmed 141418001 Problem Other chronic pain G89.29 Active confirmed 8 9377768 ALLERGIES Allergen (clinical drug ingredient) Drug/Non Drug Allergy do cumented on EMR Reaction Allergy Type Onset Date Status ceclor Hives Drug Allergy Active Penicillin (For Allergies Use Only) Hives Drug Allerg y Active amoxicillin Amoxicillin(NDC Code:[address]-19) Hives Drug Aller gy Active erythromycin Erythromycin(ND Code:[address]-03) Hives Drug All ergy Active ENCOUNTERS from 1990 to 2021-02-22 Encounter Location Date Provider Diagnosis [facility] [address] [address] [phone] [place] [address] Feb, Geovanna Guille IMMUNIZATIONS Vaccine Route Administration Date Status Influenza [...] Education Language: Question Answer Notes Languages spoken: Congolese Worship: Question Answer Notes Worship 33 None Sexual Hx: Question Answer Notes [...] Information RESULTS No Results REASON FOR VISIT lump MEDICAL (GENERAL) HISTORY Type Description Date Medical [...] Insured Coverage Start Date Coverage End Date [facility] [address] [facility] [phone] DEVANTE RUIZ self
--- OUTSIDE RECORDS SUMMARY | 2021-02-27 14:10 | CCD ---
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 eCW1 ([facility] Body temperature 98.4 [degF] 98.4 [degF] eCW1 ( [facility]) Systolic blood pressure 149 mm[Hg] 149 mm[Hg] e CW1 ([facility]) Diastolic blood pressure 86 mm[Hg] 86 mm[Hg] eCW1 ([facility]) Body weight 165 [lb_av] 165 [lb_av] eCW1 ([facility]) Body height 69 [in_i] 69 [in_i] eCW1 ([facility]) Body mass index (BMI) [Ratio] 24.36 kg/m2 24.36 kg/m2 W1 ([facility]) Heart rate 78 /min 78 /min eCW1 ([facility]) Respiratory rate 16 /min 16 /min eCW1 ([facility] Body temperature 98.6 [degF] 98.6 [degF] eCW1 ( [facility]) Systolic blood pressure 136 mm[Hg] 136 mm[Hg] e CW1 ([facility]) Diastolic blood pressure 81 mm[Hg] 81 mm[Hg] eCW1 ([facility]) Patient Treatment Plan of Care Planned Activity Planned Date Details Description Data Source (s) Divalproex Sodium 250 MG Delayed Release Oral Tablet 12:00:00 AM EDT eCW1 ([facility]) Divalproex Sodium 250 MG Delayed Release Oral Tablet 12:00:00 AM EDT eCW1 ([facility]) Divalproex Sodium 250 MG Delayed Release Oral Tablet 12:00:00 AM EDT eCW1 ([facility]) Divalproex Sodium 250 MG Delayed Release Oral Tablet 12:00:00 AM EDT eCW1 ([facility]) gabapentin 300 MG Oral Capsule 02/10/2020 12:00:00 AM EST eCW1 ([facility]) gabapentin 300 MG Oral Capsule 02/10/2020 12:00:00 AM EST eCW1 ([facility]) gabapentin 300 MG Oral Capsule 02/10/2020 12:00:00 AM EST eCW1 ([facility]) gabapentin 300 MG Oral Capsule 02/10/2020 12:00:00 AM EST eCW1 ([facility]) gabapentin 300 MG Oral Capsule 02/10/2020 12:00:00 AM EST eCW1 ([facility]) Mirtazapine 30 MG Oral Tablet 02/10/2020 12:00:00 AM EST eCW1 ([facility]) Mirtazapine 30 MG Oral Tablet 02/10/2020 12:00:00 AM EST eCW1 ([facility]) gabapentin 300 MG Oral Capsule 02/10/2020 12:00:00 AM EST eCW1 ([facility]) Mirtazapine 30 MG Oral Tablet 02/10/2020 12:00:00 AM EST eCW1 ([facility]) gabapentin 300 MG Oral Capsule 02/10/2020 12:00:00 AM EST eCW1 ([facility]) Mirtazapine 30 MG Oral Tablet 02/10/2020 12:00:00 AM EST eCW1 ([facility]) gabapentin 300 MG Oral Capsule 02/10/2020 12:00:00 AM EST eCW1 ([facility]) Lidocaine 40 MG/ML Topical Cream 02/02/2020 12:00:00 AM EDT eCW1 ([facility]) Lidocaine 40 MG/ML Topical Cream 02/02/2020 12:00:00 AM EDT eCW1 ([facility])
[2021-02-27] MEDS ORDERED: GABA-282 (14:24)
[2021-02-27] MEDS ORDERED: NS 1,000 ML IV ONE (15:30)
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
[2021-02-27] MEDS ORDERED: KETOROLAC 30 MG/ML 1ML VIAL IV ONE (15:55)
[2021-02-27 16:18] LABS: BASO % 0.2 % (0.0-1.0); EOS % 0.2 % (0.0-3.0); HEMATOCRIT 42.5 % (42.0-52.0); HEMOGLOBIN 14.7 g/dl (13.5-17.5); LYMPH # 0.9 10^3/uL (1.5-5.0); LYMPH % 4.8 % (24.0-44.0); MEAN CORPUSCULAR HEMOGLOBIN 29.6 pg (27.0-33.0); MEAN CORPUSCULAR HGB CONC 34.6 g/dl (32.0-36.5); MEAN CORPUSCULAR VOLUME 85.7 fl (80.0-96.0); MONO # 0.6 10^3/uL (0.0-0.8); MONO % 3.2 % (2.0-8.0); NEUTROPHILS # 17.4 10^3/uL (1.5-8.5); NEUTROPHILS % 91.2 % (36.0-66.0); PLATELET COUNT, AUTOMATED 230 10^3/uL (150-450); RED BLOOD COUNT 4.96 10^6/uL (4.30-6.10); WHITE BLOOD COUNT 19.1 10^3/uL (4.0-10.0)
[2021-02-27 16:39] LABS: ERYTHROCYTE SEDIMENTATION RATE 5 mm/hr (0-15)
[2021-02-27 16:43] LABS: MONO REFLEX EBV COMP NEGATIVE (NEGATIVE)
[2021-02-27 16:45] LABS: BLOOD UREA NITROGEN 15 MG/DL (7-18); CALCIUM LEVEL 9.7 MG/DL (8.5-10.1); CARBON DIOXIDE LEVEL 30 MEQ/L (21-32); CHLORIDE LEVEL 102 MEQ/L (98-107); CREATININE FOR GFR 1.29 MG/DL (0.70-1.30); GLOMERULAR FILTRATION RATE > 60.0 (>60); GLUCOSE, FASTING 110 MG/DL (70-100); POTASSIUM SERUM 4.2 MEQ/L (3.5-5.1); SODIUM LEVEL 136 MEQ/L (136-145)
[2021-02-27] MEDS ORDERED: CLINDAMYCIN 900 MG in IV 1 EA IV ONE (16:50)
--- NOTE | 2021-02-27 17:16 | REP ---
INDICATION: infected laceration left index r/o fb/osteo COMPARISON: None. TECHNIQUE: AP, lateral, bilateral oblique views left 2nd digit. FINDINGS: The osseous structures appear normal and without evidence for injury or periosteal reaction to suggest osteomyelitis. Surrounding soft tissues are grossly unremarkable. No subcutaneous emphysema or foreign body. IMPRESSION: No radiographic evidence to suggest osteomyelitis. <Electronically signed by Gilberto Hahn > 02/27/21 [id number]
[2021-02-27] MEDS ORDERED: CLEO300C2 PO (18:06)
[2021-02-27 18:29] VITALS: BP 109/59
[2021-03-01 16:11] LABS: EBV VIRAL CAPSID AG IgM <36.0 U/mL (0.0-35.9)
== END 2021-02-27 19:03 | disposition home or self-care (01) ==
LOC: M ED 14:03
DX: S61.211A Laceration without foreign body of left index finger without damage to nail, initial encounter (principal); W26.8XXA Contact with other sharp object(s), not elsewhere classified, initial encounter; Y92.89 Other specified places as the place of occurrence of the external cause; L08.9 Local infection of the skin and subcutaneous tissue, unspecified; D72.829 Elevated white blood cell count, unspecified; J02.9 Acute pharyngitis, unspecified; K22.70 Barrett's esophagus without dysplasia; Z88.0 Allergy status to penicillin; Z88.1 Allergy status to other antibiotic agents; Z88.2 Allergy status to sulfonamides; Z88.8 Allergy status to other drugs, medicaments and biological substances; F17.210 Nicotine dependence, cigarettes, uncomplicated
CPT/HCPCS: 73140; 80048; 85025; 85652; 86140; 86308; 86664; 86665; 87040; 87070; 87077; 87186; 87205; 96361; 96365; 96375; 99283; J1885

== ENCOUNTER 2021-03-05 20:47 | Emergency (ER) | payer OTHER ==
[~2021-03-05] VITALS: Ht 180.3 cm; Wt 72.7 kg
[~2021-03-05 20:47] MED LIST changes: +GABA-282
--- OUTSIDE RECORDS SUMMARY | 2021-03-05 20:53 | CCD ---
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 300 MG Oral Capsule 02/10/2020 12:00:00 AM EST eCW1 ([facility]) Lidocaine 40 MG/ML Topical Cream 02/02/2020 12:00:00 AM EDT eCW1 ([facility]) Lidocaine 40 MG/ML Topical Cream 02/02/2020 12:00:00 AM EDT eCW1 ([facility])
[2021-03-05 21:37] LABS: AMPHETAMINES LEVEL URINE NEGATIVE (NEGATIVE); BARBITURATES URINE NEGATIVE (NEGATIVE); BENZODIAZEPINES URINE POSITIVE (NEGATIVE); CANNABINOIDS URINE NEGATIVE (NEGATIVE); COCAINE METABOLITE URINE NEGATIVE (NEGATIVE); METHADONE URINE NEGATIVE (NEGATIVE); OPIATES URINE NEGATIVE (NEGATIVE); PHENCYCLIDINE URINE NEGATIVE (NEGATIVE)
[2021-03-05 21:38] LABS: HEMATOCRIT 45.7 % (42.0-52.0); HEMOGLOBIN 15.7 g/dl (13.5-17.5); MEAN CORPUSCULAR HEMOGLOBIN 29.4 pg (27.0-33.0); MEAN CORPUSCULAR HGB CONC 34.4 g/dl (32.0-36.5); MEAN CORPUSCULAR VOLUME 85.6 fl (80.0-96.0); PLATELET COUNT, AUTOMATED 366 10^3/uL (150-450); RED BLOOD COUNT 5.34 10^6/uL (4.30-6.10); WHITE BLOOD COUNT 12.3 10^3/uL (4.0-10.0)
[2021-03-05 22:10] LABS: ACETAMINOPHEN LEVEL < 2.0 UG/ML (10.0-30.0); ACETONE/KETONE 1.14 MG/DL (<2.81); ALBUMIN 4.1 GM/DL (3.2-5.2); ALT/SGPT 31 U/L (12-78); BILIRUBIN,DIRECT 0.1 MG/DL (0.0-0.2); BILIRUBIN,TOTAL 0.5 MG/DL (0.2-1.0); BLOOD UREA NITROGEN 10 MG/DL (7-18); CALCIUM LEVEL 9.5 MG/DL (8.5-10.1); CARBON DIOXIDE LEVEL 29 MEQ/L (21-32); CHLORIDE LEVEL 104 MEQ/L (98-107); CREATININE FOR GFR 0.98 MG/DL (0.70-1.30); ETHYL ALCOHOL (ETHANOL) 0.114 % (0.000-0.010); GLOMERULAR FILTRATION RATE > 60.0 (>60); GLUCOSE, FASTING 110 MG/DL (70-100); POTASSIUM SERUM 3.9 MEQ/L (3.5-5.1); SALICYLATE LEVEL 3.3 MG/DL (5.0-30.0); SODIUM LEVEL 139 MEQ/L (136-145); THYROID STIMULATING HORMONE 0.401 uIU/ML (0.358-3.740); TOTAL PROTEIN 8.4 GM/DL (6.4-8.2)
[2021-03-05 23:03] LABS: RSV AMPLIFICATION NEGATIVE (NEGATIVE)
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
[2021-03-06] MEDS ORDERED: MIRTAZAPINE 15 MG TAB PO SCH (10:00)
[2021-03-06] MEDS ORDERED: GABAPENTIN 300 MG CAP PO SCH (10:00)
[2021-03-06] MEDS ORDERED: LORazepam 1 MG TAB PO STA (13:09)
[2021-03-06 14:21] VITALS: BP 134/69
--- NOTE | 2021-03-06 16:45 | ECGEPIP ---
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
== END 2021-03-06 14:45 ==
LOC: M ED 20:47
DX: R45.851 Suicidal ideations (principal); F33.9 Major depressive disorder, recurrent, unspecified; Z79.899 Other long term (current) drug therapy; Z88.0 Allergy status to penicillin; Z88.1 Allergy status to other antibiotic agents; Z88.2 Allergy status to sulfonamides; Z88.8 Allergy status to other drugs, medicaments and biological substances; F17.210 Nicotine dependence, cigarettes, uncomplicated

== ENCOUNTER 2021-11-18 14:43 | Emergency (ER) | payer OTHER ==
[~2021-11-18] VITALS: Ht 180.3 cm; Wt 76.9 kg
[~2021-11-18 14:43] MED LIST changes: -OMEP-221; +OMEP40CA5
[2021-11-18 14:44] VITALS: BP 112/60
[2021-11-18] MEDS ORDERED: BUPR1FIL3 (15:07)
[2021-11-18 18:35] LABS: BACTERIA, URINE NONE SEEN; HYALINE CAST, URINE NONE SEEN /lpf (0-1); RBC, URINE NONE SEEN /hpf (0-3); SQUAMOUS EPITHELIAL CELL URINE NONE SEEN /hpf (SMALL AMT); WBC, URINE 0-1 /hpf (0-3)
[2021-11-18] MEDS ORDERED: NAPROXEN 250 MG TAB PO ONE (20:45)
[2021-11-18] MEDS ORDERED: methocarbamoL 500 MG TAB PO ONE (20:45)
[2021-11-18] MEDS ORDERED: NAPR-837 PO (20:52)
[2021-11-18] MEDS ORDERED: METH-1164 PO (20:52)
== END 2021-11-18 21:18 | disposition home or self-care (01) ==
LOC: M ED 14:43
DX: S39.012A Strain of muscle, fascia and tendon of lower back, initial encounter (principal); X58.XXXA Exposure to other specified factors, initial encounter; Y92.89 Other specified places as the place of occurrence of the external cause; M62.830 Muscle spasm of back; F11.10 Opioid abuse, uncomplicated; F32.A Depression, unspecified; F43.10 Post-traumatic stress disorder, unspecified; F90.9 Attention-deficit hyperactivity disorder, unspecified type; Z88.0 Allergy status to penicillin; Z88.1 Allergy status to other antibiotic agents; Z88.2 Allergy status to sulfonamides; Z88.8 Allergy status to other drugs, medicaments and biological substances; Z79.899 Other long term (current) drug therapy; F17.210 Nicotine dependence, cigarettes, uncomplicated

== ENCOUNTER → 2022-01-03 | Outpatient (CLI) | payer OTHER ==
[~2022-01-03] MED LIST changes: +BUPR1FIL3; +METH-1164 PO
[2022-01-03 12:49] LABS: BASO # 0.1 10^3/uL (0.0-0.2); BASO % 0.9 % (0.0-1.0); EOS # 0.1 10^3/uL (0.0-0.5); EOS % 2.1 % (0.0-3.0); HEMATOCRIT 43.6 % (42.0-52.0); HEMOGLOBIN 14.6 g/dl (13.5-17.5); LYMPH # 2.6 10^3/uL (1.5-5.0); LYMPH % 44.3 % (24.0-44.0); MEAN CORPUSCULAR HEMOGLOBIN 28.9 pg (27.0-33.0); MEAN CORPUSCULAR HGB CONC 33.5 g/dl (32.0-36.5); MEAN CORPUSCULAR VOLUME 86.3 fl (80.0-96.0); MONO # 0.4 10^3/uL (0.0-0.8); MONO % 6.4 % (2.0-8.0); NEUTROPHILS # 2.7 10^3/uL (1.5-8.5); NEUTROPHILS % 46.1 % (36.0-66.0); PLATELET COUNT, AUTOMATED 259 10^3/uL (150-450); RED BLOOD COUNT 5.05 10^6/uL (4.30-6.10); WHITE BLOOD COUNT 5.8 10^3/uL (4.0-10.0)
[2022-01-03 13:33] LABS: ALBUMIN 4.5 GM/DL (3.2-5.2); ALT/SGPT 12 U/L (12-78); BILIRUBIN,TOTAL 0.4 MG/DL (0.2-1.0); BLOOD UREA NITROGEN 12 MG/DL (7-18); CALCIUM LEVEL 9.5 MG/DL (8.5-10.1); CARBON DIOXIDE LEVEL 30 MEQ/L (21-32); CHLORIDE LEVEL 105 MEQ/L (98-107); CHOLESTEROL LEVEL 156 MG/DL (<200); CHOLESTEROL RISK RATIO 3.714 (<5); CREATININE FOR GFR 1.29 MG/DL (0.70-1.30); GLOMERULAR FILTRATION RATE > 60.0 (>60); GLUCOSE, FASTING 109 MG/DL (70-100); HDL CHOLESTEROL 42 MG/DL (>40); LDL CHOLESTEROL 96 MG/DL (<100); NON-HDL-C 114 MG/DL; POTASSIUM SERUM 4.7 MEQ/L (3.5-5.1); SODIUM LEVEL 139 MEQ/L (136-145); TOTAL PROTEIN 7.7 GM/DL (6.4-8.2); TRIGLYCERIDES LEVEL 89 MG/DL (<150)
[2022-01-03 13:58] LABS: TOTAL T3 111.5 NG/DL (60.0-181.0)
== END ==
LOC: M LAB 12:06
PROVIDERS: ATTEND Nurse Practitioner Family
DX: R45.4 Irritability and anger (principal); F10.21 Alcohol dependence, in remission; F11.20 Opioid dependence, uncomplicated

== ENCOUNTER → 2022-04-24 | Outpatient (CLI) | payer OTHER ==
[2022-04-24 12:29] LABS: BASO # 0.1 10^3/uL (0.0-0.2); EOS # 0.2 10^3/uL (0.0-0.5); EOS % 3.2 % (0.0-3.0); HEMATOCRIT 42.3 % (42.0-52.0); LYMPH # 2.5 10^3/uL (1.5-5.0); LYMPH % 40.9 % (24.0-44.0); MEAN CORPUSCULAR HEMOGLOBIN 29.3 pg (27.0-33.0); MEAN CORPUSCULAR HGB CONC 33.1 g/dl (32.0-36.5); MEAN CORPUSCULAR VOLUME 88.5 fl (80.0-96.0); MONO # 0.4 10^3/uL (0.0-0.8); MONO % 7.2 % (2.0-8.0); NEUTROPHILS # 2.9 10^3/uL (1.5-8.5); NEUTROPHILS % 47.7 % (36.0-66.0); PLATELET COUNT, AUTOMATED 319 10^3/uL (150-450); RED BLOOD COUNT 4.78 10^6/uL (4.30-6.10)
[2022-04-24 12:58] LABS: ALKALINE PHOSPHATASE 106 U/L (46-116); ALT/SGPT 19 U/L (7.0-40); AST/SGOT 18 U/L (<34); BILIRUBIN,TOTAL 0.3 MG/DL (0.3-1.2); BLOOD UREA NITROGEN 14 MG/DL (9-23); CALCIUM LEVEL 9.5 MG/DL (8.5-10.1); CARBON DIOXIDE LEVEL 30 MMOL/L (20-31); CHLORIDE LEVEL 102 MMOL/L (98-107); CHOLESTEROL LEVEL 118 MG/DL (<200); CHOLESTEROL RISK RATIO 3.67 (<5); CREATININE FOR GFR 1.16 MG/DL (0.70-1.30); GLOMERULAR FILTRATION RATE > 60.0 (>60); GLUCOSE, FASTING 95 MG/DL (60-100); HDL CHOLESTEROL 32.1 MG/DL (>40); LDL CHOLESTEROL 71.9 MG/DL (<100); NON-HDL-C 86 MG/DL; POTASSIUM SERUM 4.5 MMOL/L (3.5-5.1); SODIUM LEVEL 137 MMOL/L (136-145); TOTAL PROTEIN 7.6 G/DL (5.7-8.2); TRIGLYCERIDES LEVEL 70 MG/DL (<150)
[2022-04-24 12:59] LABS: THYROID STIMULATING HORMONE 2.124 uIU/ML (0.55-4.78); TOTAL T3 118.3 NG/DL (60.0-181.0)
== END ==
LOC: M LAB 11:37
PROVIDERS: ATTEND Nurse Practitioner Family
DX: R45.4 Irritability and anger (principal); F10.21 Alcohol dependence, in remission; F11.20 Opioid dependence, uncomplicated

== ENCOUNTER 2022-09-22 09:48 | Observation (INO) | payer OTHER ==
[~2022-09-22] VITALS: Ht 180.3 cm; Wt 81.7 kg
[2022-09-22] MEDS ORDERED: NS 1,000 ML IV ONE (10:25)
[2022-09-22 10:43] LABS: BASO % 0.5 % (0.0-1.0); EOS # 0.2 10^3/uL (0.0-0.5); HEMATOCRIT 41.6 % (42.0-52.0); HEMOGLOBIN 14.3 g/dl (13.5-17.5); LYMPH # 2.5 10^3/uL (1.5-5.0); LYMPH % 27.7 % (24.0-44.0); MEAN CORPUSCULAR HEMOGLOBIN 29.7 pg (27.0-33.0); MEAN CORPUSCULAR HGB CONC 34.4 g/dl (32.0-36.5); MEAN CORPUSCULAR VOLUME 86.5 fl (80.0-96.0); MONO # 0.6 10^3/uL (0.0-0.8); MONO % 6.4 % (2.0-8.0); NEUTROPHILS # 5.6 10^3/uL (1.5-8.5); NEUTROPHILS % 63.1 % (36.0-66.0); PLATELET COUNT, AUTOMATED 271 10^3/uL (150-450); RED BLOOD COUNT 4.81 10^6/uL (4.30-6.10); WHITE BLOOD COUNT 8.8 10^3/uL (4.0-10.0)
[2022-09-22 11:14] LABS: CK-MB VALUE MASS < 1.0 NG/ML (<3.6)
[2022-09-22 11:16] LABS: ETHYL ALCOHOL (ETHANOL) 0.008 % (0.000-0.010)
[2022-09-22 11:17] LABS: ALBUMIN 3.9 G/DL (3.2-5.2); ALKALINE PHOSPHATASE 91 U/L (46-116); ALT/SGPT 21 U/L (7.0-40); AST/SGOT 15 U/L (<34); BILIRUBIN,DIRECT 0.2 MG/DL (<0.4); BILIRUBIN,TOTAL 0.5 MG/DL (0.3-1.2); BLOOD UREA NITROGEN 7 MG/DL (9-23); CALCIUM LEVEL 8.7 MG/DL (8.5-10.1); CARBON DIOXIDE LEVEL 32 MMOL/L (20-31); CHLORIDE LEVEL 100 MMOL/L (98-107); CPK CREATINE PHOSPHOKINASE 73 U/L (46-171); GLOMERULAR FILTRATION RATE 57.7 (>60); GLUCOSE, FASTING 102 MG/DL (60-100); MB/CK RELATIVE INDEX 1.36 (< OR =4); POTASSIUM SERUM 4.4 MMOL/L (3.5-5.1); SALICYLATE LEVEL < 3.0 MG/DL (<30); SODIUM LEVEL 136 MMOL/L (136-145); THYROID STIMULATING HORMONE 1.295 uIU/ML (0.55-4.78)
[2022-09-22] MEDS ORDERED: TRAZ150T90 PO (11:19)
[2022-09-22] MEDS ORDERED: CLONI1TA PO (11:19)
[2022-09-22] MEDS ORDERED: LUMA42CA PO (11:19)
[2022-09-22 11:20] LABS: RSV AMPLIFICATION NEGATIVE (NEGATIVE)
[2022-09-22] MEDS ORDERED: LIDOCAINE 2% 5ML JELLY UROJET TOP ONE (12:15)
[2022-09-22 12:20] LABS: ABG BASE EXCESS 1.4 (-2.0-2.0); ABG HCO3 27.2 MMOL/L (22.0-26.0); ABG O2 SATURATION 95.7 % (95.0-99.0); ABG PARTIAL PRESSURE CO2 47.6 mmHg (35.0-45.0); ABG PARTIAL PRESSURE O2 77.7 mmHg (75.0-100.0); ABG STANDARD HCO3 25.6 MMOL/L. (22.0-26.0); ABG TOTAL CO2 28.7 MMOL/L (22.0-29.0); ABG pH (ARTERIAL) 7.375 UNITS (7.350-7.450)
[2022-09-22 12:30] LABS: CK-MB VALUE MASS < 1.0 NG/ML (<3.6)
[2022-09-22 12:32] LABS: ACETAMINOPHEN LEVEL 6.7 UG/ML (10.0-20.0); CPK CREATINE PHOSPHOKINASE 64 U/L (46-171); MB/CK RELATIVE INDEX 1.56 (< OR =4)
[2022-09-22] MEDS ORDERED: MOM 30ML SUSPENSION UDC PO PRN (13:00)
[2022-09-22] MEDS ORDERED: ACETAMINOPHEN TAB 650MG DOSE (2X325MG) PO PRN (13:00)
[2022-09-22 13:19] LABS: AMPHETAMINES LEVEL URINE NEGATIVE (NEGATIVE); BARBITURATES URINE NEGATIVE (NEGATIVE); BENZODIAZEPINES URINE NEGATIVE (NEGATIVE); COCAINE METABOLITE URINE NEGATIVE (NEGATIVE); OPIATES URINE NEGATIVE (NEGATIVE); PHENCYCLIDINE URINE NEGATIVE (NEGATIVE)
[2022-09-22 13:20] LABS: CANNABINOIDS URINE POSITIVE (NEGATIVE); METHADONE URINE POSITIVE (NEGATIVE)
[2022-09-22 13:45] LABS: INR 1.09; PROTHROMBIN TIME 14.3 SECONDS (12.5-14.5)
[2022-09-22 14:01] LABS: ACETAMINOPHEN LEVEL 6.2 UG/ML (10.0-20.0)
[2022-09-22 14:04] LABS: THYROID STIMULATING HORMONE 1.177 uIU/ML (0.55-4.78)
[2022-09-22] MEDS ORDERED: LR 1,000 ML IV ONE (14:05)
[2022-09-22] MEDS ORDERED: OLAN20TA14 PO (14:17)
[2022-09-22] MEDS ORDERED: CLON0.2T PO (14:17)
[2022-09-22] MEDS ORDERED: METH10CO PO (14:23)
[2022-09-22] MEDS ORDERED: HOME MED LIST COMPLETE! XX SCH (14:25)
[2022-09-22 17:05] VITALS: BP 133/85; TEMP 97.3; O2SAT 95
[2022-09-22 20:00] VITALS: BP 109/56; TEMP 97.6; O2SAT 93
[2022-09-22] MEDS: DOCUSATE SODIUM 100MG CAPSULE PO SCH (21:00)
[2022-09-23] VITALS: BP 116/78; TEMP 97.1; O2SAT 95
[2022-09-23 04:00] VITALS: BP 118/67; TEMP 98.1; O2SAT 98
[2022-09-23 04:15] LABS: HEMATOCRIT 40.4 % (42.0-52.0); HEMOGLOBIN 13.7 g/dl (13.5-17.5); MEAN CORPUSCULAR HEMOGLOBIN 29.1 pg (27.0-33.0); MEAN CORPUSCULAR HGB CONC 33.9 g/dl (32.0-36.5); MEAN CORPUSCULAR VOLUME 85.8 fl (80.0-96.0); PLATELET COUNT, AUTOMATED 257 10^3/uL (150-450); RED BLOOD COUNT 4.71 10^6/uL (4.30-6.10); WHITE BLOOD COUNT 8.5 10^3/uL (4.0-10.0)
[2022-09-23 04:42] LABS: BLOOD UREA NITROGEN 9 MG/DL (9-23); CALCIUM LEVEL 8.6 MG/DL (8.5-10.1); CARBON DIOXIDE LEVEL 32 MMOL/L (20-31); CHLORIDE LEVEL 104 MMOL/L (98-107); CREATININE FOR GFR 1.27 MG/DL (0.70-1.30); GLOMERULAR FILTRATION RATE > 60.0 (>60); GLUCOSE, FASTING 115 MG/DL (60-100); MAGNESIUM LEVEL 1.8 MG/DL (1.8-2.4); POTASSIUM SERUM 4.6 MMOL/L (3.5-5.1); SODIUM LEVEL 138 MMOL/L (136-145)
[2022-09-23 07:30] VITALS: BP 111/67; TEMP 97.6; O2SAT 97
[2022-09-23] MEDS: DOCUSATE SODIUM 100MG CAPSULE PO SCH (09:00)
[2022-09-23] MEDS ORDERED: NICOTINE 21MG/24HR 1 EA TRANSDERMAL TD SCH (09:00)
== END 2022-09-23 09:15 | disposition home or self-care (01) ==
LOC: M ED 09:48 → M ED INP 09:49 → ENRESERV 16:20 → M PCU 17:06
PROVIDERS: ADMIT Student in an Organized Health Care Education/Training Program; ATTEND Student in an Organized Health Care Education/Training Program
DX: G92.9 Unspecified toxic encephalopathy (principal); T39.1X4A Poisoning by 4-Aminophenol derivatives, undetermined, initial encounter; R00.1 Bradycardia, unspecified; N17.9 Acute kidney failure, unspecified; F31.9 Bipolar disorder, unspecified; K22.70 Barrett's esophagus without dysplasia; F17.219 Nicotine dependence, cigarettes, with unspecified nicotine-induced disorders; F11.91 Opioid use, unspecified, in remission; Z79.899 Other long term (current) drug therapy; Z88.1 Allergy status to other antibiotic agents; Z88.0 Allergy status to penicillin; Z88.2 Allergy status to sulfonamides; Z88.8 Allergy status to other drugs, medicaments and biological substances

== ENCOUNTER → 2023-04-18 | Outpatient (CLI) | payer OTHER ==
[~2023-04-18] MED LIST changes: +CLON0.2T PO; +CLONI1TA PO; +LUMA42CA PO; +METH10CO PO; -MIRT-62 PO; +MIRT-88 PO; +OLAN20TA14 PO; -ROPI0.253; +ROPI5TAB19; +TRAZ150T90 PO
[2023-04-18 12:31] LABS: HEMATOCRIT 47.9 % (42.0-52.0); HEMOGLOBIN 16.3 g/dl (13.5-17.5); MEAN CORPUSCULAR HEMOGLOBIN 29.4 pg (27.0-33.0); MEAN CORPUSCULAR VOLUME 86.5 fl (80.0-96.0); PLATELET COUNT, AUTOMATED 289 10^3/uL (150-450); RED BLOOD COUNT 5.54 10^6/uL (4.30-6.10); WHITE BLOOD COUNT 10.3 10^3/uL (4.0-10.0)
[2023-04-18 12:45] LABS: ALBUMIN 4.8 G/DL (3.2-5.2); ALKALINE PHOSPHATASE 95 U/L (46-116); ALT/SGPT 19 U/L (7.0-40); AST/SGOT 12 U/L (<34); BILIRUBIN,TOTAL 0.5 MG/DL (0.3-1.2); BLOOD UREA NITROGEN 8 MG/DL (9-23); CALCIUM LEVEL 9.9 MG/DL (8.5-10.1); CARBON DIOXIDE LEVEL 29 MMOL/L (20-31); CHLORIDE LEVEL 103 MMOL/L (98-107); CREATININE FOR GFR 1.29 MG/DL (0.70-1.30); GLOMERULAR FILTRATION RATE > 60.0 (>60); GLUCOSE, FASTING 97 MG/DL (60-100); POTASSIUM SERUM 4.1 MMOL/L (3.5-5.1); SODIUM LEVEL 137 MMOL/L (136-145); TOTAL PROTEIN 8.1 G/DL (5.7-8.2)
[2023-04-18 13:17] LABS: HIV 1&2 SCREEN NEGATIVE (NEGATIVE)
[2023-04-18 13:25] LABS: HEPATITIS C VIRUS ABY INDEX 0.02 INDEX (<0.8)
[2023-04-18 13:46] LABS: CHLAMYDIA DNA AMPLIFICATION NEGATIVE (NEGATIVE); GC DNA AMPLIFICATION NEGATIVE (NEGATIVE)
== END ==
LOC: M LAB 11:48
PROVIDERS: ATTEND Family Medicine
DX: F11.20 Opioid dependence, uncomplicated (principal)

== ENCOUNTER → 2023-07-26 | Outpatient (REF) | payer OTHER ==
[2023-07-26 21:19] LABS: APPEARANCE, URINE CLEAR (CLEAR); BACTERIA, URINE AUTO NEGATIVE (NEGATIVE); BILIRUBIN, URINE AUTO 1+ (NEGATIVE); BLOOD, URINE BLOOD NEGATIVE (NEGATIVE); COLOR, URINE AMBER (YELLOW); GLUCOSE, URINE (UA) AUTO NEGATIVE (NEGATIVE); KETONE, URINE AUTO 1+ mg/dL (NEGATIVE); LEUKOCYTE ESTERASE, URINE AUTO NEGATIVE (NEGATIVE); MUCUS, URINE SMALL (NEGATIVE); NITRITE, URINE AUTO NEGATIVE (NEGATIVE); PROTEIN, URINE AUTO 1+ mg/dL (NEGATIVE); RBC, URINE AUTO 0 /HPF (0-3); SPECIFIC GRAVITY URINE AUTO 1.034 (1.002-1.035); SQUAMOUS EPITHELIAL CELL UR AU 0 /HPF (0-6); WBC, URINE AUTO 1 /HPF (0-3)
[2023-07-26 22:49] LABS: Trichomonas vaginalis (AMP) NOT DETECTED (NEGATIVE)
[2023-07-26 23:12] LABS: GC DNA AMPLIFICATION NEGATIVE (NEGATIVE)
== END ==
LOC: M LAB REF 21:07
PROVIDERS: ATTEND Physician Assistant
DX: N39.0 Urinary tract infection, site not specified (principal)

== ENCOUNTER → 2024-04-24 | Outpatient (CLI) | payer OTHER ==
[~2024-04-24] MED LIST changes: +DOXY-441 PO; -DOXY-443 PO; +GABA-1172; -GABA-282; -OLAN20TA14 PO; +OLAN20TA53 PO; +ONDA-282 PO; -ONDA4TAB6 PO
== END ==
LOC: M WUC 15:44
DX: M54.50 Low back pain, unspecified (principal)

== ENCOUNTER → 2024-07-03 | Outpatient (CLI) | payer OTHER ==
[2024-07-03 09:47] LABS: BASO % 0.4 % (0.0-1.0); EOS # 0.2 10^3/uL (0.0-0.5); EOS % 3.3 % (0.0-3.0); HEMATOCRIT 40.2 % (42.0-52.0); LYMPH # 2.9 10^3/uL (1.5-5.0); LYMPH % 42.7 % (24.0-44.0); MEAN CORPUSCULAR HEMOGLOBIN 30.4 pg (27.0-33.0); MEAN CORPUSCULAR HGB CONC 34.8 g/dl (32.0-36.5); MEAN CORPUSCULAR VOLUME 87.4 fl (80.0-96.0); MONO # 0.5 10^3/uL (0.0-0.8); MONO % 7.9 % (2.0-8.0); NEUTROPHILS # 3.1 10^3/uL (1.5-8.5); NEUTROPHILS % 45.6 % (36.0-66.0); PLATELET COUNT, AUTOMATED 212 10^3/uL (150-450); WHITE BLOOD COUNT 6.7 10^3/uL (4.0-10.0)
[2024-07-03 10:02] LABS: HEMOGLOBIN A1c 4.7 % (4.0-6.0)
[2024-07-03 10:15] LABS: ALBUMIN 4.1 G/DL (3.2-5.2); ALKALINE PHOSPHATASE 66 U/L (40-129); ALT/SGPT 25 U/L (7.0-40); AST/SGOT 18 U/L (<34); BILIRUBIN,TOTAL 0.5 MG/DL (0.3-1.2); BLOOD UREA NITROGEN 10 MG/DL (9-23); CALCIUM LEVEL 9.1 MG/DL (8.5-10.1); CARBON DIOXIDE LEVEL 30 MMOL/L (20-31); CHLORIDE LEVEL 108 MMOL/L (98-107); CHOLESTEROL LEVEL 149 MG/DL (<200); CHOLESTEROL RISK RATIO 4.04 (<5); CREATININE FOR GFR 1.09 MG/DL (0.70-1.30); GLOMERULAR FILTRATION RATE > 60.0 (>60); GLUCOSE, FASTING 119 MG/DL (60-100); HDL CHOLESTEROL 36.8 MG/DL (>40); LDL CHOLESTEROL 94.8 MG/DL (<100); NON-HDL-C 112.2 MG/DL; POTASSIUM SERUM 4.2 MMOL/L (3.5-5.1); SODIUM LEVEL 141 MMOL/L (136-145); TOTAL PROTEIN 7.4 G/DL (5.7-8.2); TRIGLYCERIDES LEVEL 87 MG/DL (<150)
[2024-07-03 10:16] LABS: TESTOSTERONE 664 NG/DL (241-827); THYROID STIMULATING HORMONE 0.697 uIU/ML (0.55-4.78); TOTAL 25(OH) VITAMIN D 33.5 NG/ML (20.0-100.0)
== END ==
LOC: M LAB 09:17
PROVIDERS: ATTEND Registered Nurse Psychiatric/Mental Health
DX: Z79.899 Other long term (current) drug therapy (principal)